=== PATIENT | male | born 1955 | race Caucasian/White ===

== ENCOUNTER 2020-05-23 14:22 | Emergency (ER) | payer MEDICARE, OTHER, SELFPAY ==
[2020-05-23 14:41] VITALS: BP 191/85; PULSE 80; RESP 16; TEMP 37.1; O2SAT 98; BMI 41.8
--- NOTE | 2020-05-23 15:18 | ED_ITS ---
HPI - Skin/Abscess/Foreign Bdy General Chief complaint: Skin/Abscess/Foreign Body Stated complaint: arm infection Time Seen by Provider: 05/23/20 14:53 Source: patient Mode of arrival: ambulatory Limitations: no limitations History of Present Illness HPI narrative: 64-year-old male with a past medical history of gout, hypertension here with left elbow redness, swelling and warmth. The patient tells me last he was clearing snow and felt some pain in his arm. That night he noticed the swelling and redness and warmth. Continued symptoms since. No fevers, chills, body aches. MD complaint: rash Onset (ago): day(s) Tetanus up to date: yes Location: LUE Severity: mild Quality: aching Pain Consistency: constant Relieving factors: none Exacerbating factors: none Context: none Associated symptoms: denies other symptoms Treatments prior to arrival: none Related Data Previous Rx's Medication Instructions Recorded cephalexin 500 mg PO TID #21 cap 05/23/20 doxycycline hyclate 100 mg PO BID #14 tab 05/23/20 oxycodone 5 mg PO Q6H PRN #10 tab 05/23/20 Allergies Allergy/AdvReac Type Severity Reaction Status Date / Time No Known Allergies Allergy Verified 05/23/20 14:41 [No Known Allergies*] Review of Systems Review of Systems: Yes all other systems are reviewed and are negative Constitutional: Constitutional: Reports no additional constitutional complaints, Denies body ache(s), Denies chills, Denies fever(s), Denies headache(s) and Denies weakness Eyes: Eyes: Reports no additional eye complaints and Denies change in vision ENT: Reports system reviewed and no additional complaints, except as documented, Denies dizziness, Denies headache(s), Denies nasal congestion, Denies nasal discharge and Denies neck pain Cardiovascular: Cardiovascular: Reports no additional cardiovascular complaints, Denies chest pain, Denies leg edema and Denies dyspnea Respiratory: Respiratory: Reports no additional respiratory complaints, Denies cough and Denies dyspnea Gastrointestinal: Gastrointestinal: Reports no additional gastrointestinal complaints, Denies abdominal pain, Denies diarrhea, Denies nausea and Denies vomiting Genitourinary: Genitourinary: Denies urinary incontinence Musculoskeletal: Musculoskeletal: Reports no additional musculoskeletal complaints, Denies back pain, Reports arthralgias, Denies joint swelling, Denies neck pain, Denies numbness and Denies tingling Integumentary/Breasts: Skin/Breast: Reports system reviewed and no additional complaints, except as docu, Reports swelling and Reports rash Neurologic: Reports system reviewed and no additional complaints, except as documented, Denies Abnormal speech present, Denies dizziness, Denies headache(s), Denies numbness, Denies tingling and Denies weakness PMF Past Medical History Attestation statement: The following information was validated with the patient. Source: old records reviewed and nursing notes reviewed Medical History Gout Hypertension Renal failure Syncopal episodes Social History Social History Alcohol intake: never Smoking Status: Never smoker Use of substances other than those prescribed or required for medical reasons: No Advance Directives: No Advance Directives Information Provided: Yes Physical Exam Vital Signs: Vital Signs: Last Vital Signs Temp 98.7 F 05/23/20 14:41 Pulse 80 05/23/20 14:41 Resp 16 05/23/20 14:41 BP 191/85 H 05/23/20 14:41 Pulse Ox 98 05/23/20 14:41 Body Mass Index 41.8 Const: General: cooperative, healthy appearing, comfortable and no acute distress Orientation/consciousness: patient oriented x3 Limitations: no limitations HENMT: Head: Yes normal to inspection Ears: hearing grossly normal bilaterally General nose exam: Normal external nose present Face and sinus: Yes normal facial exam Mouth: Normal oral and palatal mucosa present Throat: Yes posterior oropharynx normal Eyes: General: appearance normal, both eyes and all related structures Pupils: Equal, round and reactive pupils present Neck: Neck: Yes normal visual inspection Chest: Chest palpation & inspection: normal inspection of the chest Resp: Effort & Inspection: normal respiratory effort Auscultation: clear to auscultation bilaterally Cardio: Rate: regular rate Rhythm: regular rhythm Peripheral pulses: Peripheral pulses 2+ throughout GI: Inspection: Yes normal to inspection Palpation (GI): Soft to palpation and nontender Auscultation: normal bowel sounds Back/Spine/Pelvis: Thoracic/Lumbar Spine: thoracic and lumbar spine normal to inspection Skin: General skin exam: no rashes or lesions noted Neuro: General: patient oriented x3, no focal motor deficits and normal sensation to monofilament Cranial nerves: Yes Equal, round and reactive pupils present Cognition (Neuro): normal cognition Speech: No Abnormal speech present Gait exam (Neuro): Normal gait present Motor exam (neuro): 5/5 motor strength present throughout Extrem: Other: There is redness, warmth, swelling noted over the lateral el bow. There is no circumferential redness or warmth or swelling. The patient is able to flex and extend the elbow with no difficulty. He is neurovascularly intact distally. No palpable joint effusion General: Yes normal to inspection Course Course Course Narrative: Exam consistent with cellulitis in the left upper extremity. It is over the lateral elbow but the patient has no difficulty moving the joint so it is less likely a septic joint. He has no fever or tachycardia or signs and symptoms of systemic infection. The area was outlined. Will start patient on oral antibiotics. Will refer to Orthopedics for follow-up. Reviewed worrisome signs and symptoms and when to return to the emergency department. Comfortable discharge home. Discharge Plan Discharge Clinical Impression: Cellulitis Qualifiers: Site of cellulitis: extremity Site of cellulitis of extremity: upper extremity Laterality: left Qualified Code(s): L03.114 - Cellulitis of left upper limb Patient Disposition: Home, Self-Care Instructions: Cellulitis (ED) Additional Instructions: We marked the area with a skin marker and rest the site with Brendon wrap. Every day when you shower take off the Brendon bandage and look at the skin. If the redness is going outside the marked lines and crossing over the inside of your arm you need to return. If you have difficulty extending your arm as we discussed you need to return. Also return for fevers, chills or body aches Start your antibiotics as soon as possible Call Orthopedics for follow-up appointment. we are referring you because there may be pus inside the bursa of the elbow and once the swelling goes down they might aspirate this with a needle. Prescriptions: New cephalexin 500 mg capsule 500 mg PO TID Qty: 21 RF: 0 doxycycline hyclate 100 mg tablet 100 mg PO BID Qty: 14 RF: 0 oxycodone 5 mg tablet 5 mg PO Q6H PRN (Reason: pain) Qty: 10 RF: 0 Referrals: Brandon Burt MD [Physician] - 2 days Interventions: ED Discharge Assessment Last Done: 12/20/20 15:28 Discharge Date/Time: 05/23/20 15:34
== END 2020-05-23 15:34 | disposition home or self-care (01) ==
PROVIDERS: Emergency Provider Emergency Medicine
DX: L03.114 Cellulitis of left upper limb (principal); E11.22 Type 2 diabetes mellitus with diabetic chronic kidney disease; I12.9 Hypertensive chronic kidney disease with stage 1 through stage 4 chronic kidney disease, or unspecified chronic kidney disease; N18.4 Chronic kidney disease, stage 4 (severe)
CPT/HCPCS: 99283

== ENCOUNTER 2020-05-24 09:27 | Inpatient (IN) | payer MEDICARE, OTHER, SELFPAY ==
[2020-05-24] VITALS (8 sets, daily range): BP systolic 135–187; BP diastolic 71–94; PULSE 75–96; RESP 16–19; TEMP 36.5–37.4; O2SAT 93–96; BMI 40.4
--- NOTE | 2020-05-24 09:48 | ED_ITS ---
HPI - Skin/Abscess/Foreign Bdy General Chief complaint: Skin/Abscess/Foreign Body Stated complaint: cellulitis lt arm Time Seen by Provider: 05/24/20 09:47 Source: patient Mode of arrival: ambulatory Limitations: no limitations History of Present Illness HPI narrative: 64 y/o male presenting with worsening left arm cellulitis. He was seen here yesterday for the same. Area was marked and he was started on Doxycycline and Keflex. He reports compliance with the antibiotics and despite this he has had extension of the redness and swelling down to his hand. It is warm and red. There is a small new scab on his hand with some clear drainage. He denies fever or chills. He reports the pain with elbow movement is the same as yesterday. Related Data Home Medications Medication Instructions Recorded Confirmed amlodipine 5 mg PO DAILY 05/24/20 05/24/20 azelastine 1 spray INTRANASAL BID PRN 05/24/20 05/24/20 calcitriol 0.25 mcg PO 3XW 05/24/20 05/24/20 carvedilol 3.125 mg PO BID 05/24/20 05/24/20 pravastatin 80 mg PO DAILY 05/24/20 05/24/20 prednisone 1 tab PO DAILY PRN 05/24/20 05/24/20 sodium bicarbonate 1,950 mg PO BID 05/24/20 05/24/20 Previous Rx's Medication Instructions Recorded cephalexin 500 mg PO TID #21 cap 05/23/20 doxycycline hyclate 100 mg PO BID #14 tab 05/23/20 oxycodone 5 mg PO Q6H PRN #10 tab 05/23/20 Allergies Allergy/AdvReac Type Severity Reaction Status Date / Time No Known Allergies Allergy Verified 05/23/20 14:41 [No Known Allergies*] Review of Systems Review of Systems: Constitutional: No Fever, No Chills Cardiovascular: No Chest Pain, No SOB, No Orthopnea, No Edema Respiratory: No Cough, No Sputum, No Wheezing, No dyspnea Gastrointestinal: No Nausea, No Vomiting, No Diarrhea, No abdominal Pain Genitourinary: No Dysuria, No Urinary Frequency, No Hematuria Musculoskeletal: + joint pain, No Myalgias Skin: + Skin Lesions, No rash Neuro: No Weakness, No Numbness, No Dizziness, No Headache Psych: No Anxiety/Panic, No Depression Heme/Lymph: + Bruising, No Lymphadenopathy Endocrine: No Polyuria, No Polydipsia PMFSH Past Medical History Attestation statement: The following information was validated with the patient. Medical History Gout Hypertension Renal failure Syncopal episodes Social History Social History Alcohol intake: never Smoking Status: Never smoker Advance Directives: No Advance Directives Information Provided: No Physical Exam Vital Signs: Vital Signs: Last Vital Signs Temp 98.5 F 05/24/20 11:08 Pulse 78 05/24/20 11:08 Resp 17 05/24/20 11:08 BP 153/72 H 05/24/20 11:08 Pulse Ox 95 05/24/20 11:08 Body Mass Index 40.4 Appearance: Alert. Oriented X3. No acute distress. HEENT: normal inspection CVS: Normal heart rate and rhythm. Pulses normal. Respiratory: No respiratory distress. Skin: Skin warm and dry. Normal skin color. Normal skin turgor. No rashes. Extremities: left arm with swelling, redness and warmth from lateral elbow extending down dorsal forearm and hand - NV intact distally. Painful ROM of no difficulty moving elbow. Neuro: Oriented X 3. No motor deficit. No sensory deficit. Course Course Course Narrative: 64 y/o male with history of CKD, ?DM (was previously on meds but now is not with weight loss) who presents with worsening LE cellulitis despite oral antibiotics. Will check blood cultures, labs including lactic acid, ESR, CRP as well as doppler to r/o DVT. Broad spectrum vanco/zosyn ordered for now. No evidence of compartment syndrome. Afebrile and hemodynamically stable at this time. Reevaluation(s) Reevaluation #1: Lab workup shows WBC 18.7K with significantly elevated ESR and CRP. Lactic acid is normal. US UE pending. Given rapid progression of cellulitis despite oral antibiotics, will admit patient for IV antibiotics and close monitoring. Reevaluation #2: Labs show significant worsening of renal function. Denies oliguria. K+ 5.0. No need for [employer] at this time. Will get Renal U/S to r/o obstructive uropathy, start IVF and admit. Hospitalist accepts. MDM - Skin/Abscess/Foreign Bdy Lab Data Result diagrams: 05/24/20 10:12 05/24/20 10:12 Labs: Lab Results 05/24/20 05/24/20 05/24/20 Range/Units 10:11 10:11 10:11 WBC (4.8-10.8) X10*3/uL RBC (4.60-5.80) X10*6/uL Hgb (14.0-18.0) g/dl Hct (42-52) % MCV (80-98) fL MCH (27.0-33.0) pg MCHC (31.0-36.0) g/dl RDW (11.0-16.0) % Plt Count (160-400) X10*3/uL MPV (9.4-12.4) fL Immature Gran % (Auto) (0.0-0.4) % Neut % (Auto) (45-73) % Lymph % (Auto) (20-40) % [place] % (Auto) (2-11) % Eos % (Auto) (0-4) % Baso % (Auto) (0-2) % Lymph # (Auto) (1.2-4.9) X10*3/uL [place] # (Auto) (0.1-1.2) X10*3/uL Eos # (Auto) (0.0-0.4) X10*3/uL Baso # (Auto) (0.0-0.2) X10*3/uL Abs Immat Gran (auto) (0.00-0.03) X10*3/uL Absolute Neuts (auto) (2.0-8.3) X10*3/uL Absolute Nucleated RBC (0.0-0.012) X10*3/uL Nucleated RBC % (auto) (0.0-0.2) /100WBC Smear Tech's Comments ESR 88 H (0-15) MM/HR PT (10.8-13.0) SEC INR (0.9-1.1) APTT (24.1-38.0) SEC Sodium (135-145) mmol/L Potassium (3.3-5.1) mmol/l Chloride (96-108) mmol/L Carbon Dioxide (22-29) mmol/L Anion Gap (12-20) BUN (9-16) mg/dL Creatinine (0.5-1.4) mg/dL Estim Creat Clear Calc Estimated GFR Random Glucose (60-115) mg/dL Lactic Acid 0.6 (0.5-2.0) mmol/L Calcium (8.4-10.2) mg/dL Total Creatine Kinase (38-174) U/L C-Reactive Protein 27.73 H (< or = 0.50) mg/dL 05/24/20 05/24/20 05/24/20 Range/Units 10:12 10:12 10:12 WBC 18.7 H (4.8-10.8) X10*3/uL RBC 4.25 L (4.60-5.80) X10*6/uL Hgb 12.0 L (14.0-18.0) g/dl Hct 37.5 L (42-52) % MCV 88.2 (80-98) fL MCH 28.2 (27.0-33.0) pg MCHC 32.0 (31.0-36.0) g/dl RDW 13.4 (11.0-16.0) % Plt Count 239 (160-400) X10*3/uL MPV 10.2 (9.4-12.4) fL Immature Gran % (Auto) 1.2 H (0.0-0.4) % Neut % (Auto) 90.7 H (45-73) % Lymph % (Auto) 2.8 L (20-40) % [place] % (Auto) 5.0 (2-11) % Eos % (Auto) 0.2 (0-4) % Baso % (Auto) 0.1 (0-2) % Lymph # (Auto) 0.5 L (1.2-4.9) X10*3/uL [place] # (Auto) 0.9 (0.1-1.2) X10*3/uL Eos # (Auto) 0.0 (0.0-0.4) X10*3/uL Baso # (Auto) 0.0 (0.0-0.2) X10*3/uL Abs Immat Gran (auto) 0.23 H (0.00-0.03) X10*3/uL Absolute Neuts (auto) 17.0 H (2.0-8.3) X10*3/uL Absolute Nucleated RBC 0.000 (0.0-0.012) X10*3/uL Nucleated RBC % (auto) 0.0 (0.0-0.2) /100WBC Smear Tech's Comments VERIFIED ESR (0-15) MM/HR PT 12.9 (10.8-13.0) SEC INR 1.1 (0.9-1.1) APTT 27.9 (24.1-38.0) SEC Sodium 133 L (135-145) mmol/L Potassium 5.0 (3.3-5.1) mmol/l Chloride 100 (96-108) mmol/L Carbon Dioxide 19 L (22-29) mmol/L Anion Gap 19 (12-20) BUN 91 H* (9-16) mg/dL Creatinine 5.53 H* (0.5-1.4) mg/dL Estim Creat Clear Calc 18.6 Estimated GFR 10 Random Glucose 138 H (60-115) mg/dL Lactic Acid (0.5-2.0) mmol/L Calcium 7.7 L (8.4-10.2) mg/dL Total Creatine Kinase 81 (38-174) U/L C-Reactive Protein (< or = 0.50) mg/dL Discharge Plan Discharge Clinical Impression: Acute kidney injury superimposed on chronic kidney disease Cellulitis Qualifiers: Site of cellulitis: extremity Site of cellulitis of extremity: upper extremity Laterality: left Qualified Code(s): L03.114 - Cellulitis of left upper limb Patient Disposition: Admitted As Inpatient
--- NOTE | 2020-05-24 09:53 | US_ITS ---
EXAMINATION: US VENOUS ULTRASOUND WITH DOPPLER UPPER EXTREMITY, LEFT CLINICAL INFORMATION: Left upper extremity edema/swelling/pain. Redness. Assess for occult DVT. COMPARISON: None TECHNIQUE: Ultrasound of the upper extremity is performed using compression sonography and color and pulse Doppler flow with assessment of augmentation of flow. There is also imaging and Doppler assessment of the jugular and subclavian veins. Spectral analysis with color-flow imaging is performed. FINDINGS: Respiratory variation, normal compression, and augmented flow are noted throughout the upper extremity including the axillary, brachial, cubital, and radial and ulnar veins. There is normal flow in the internal jugular and subclavian veins. There is no visible deep or superficial thrombophlebitis. If the patient's symptoms process, a followup scan in 5 days 7 days might be of value to exclude proximal propagation from a nonvisualized vein distal arm. US/US venous duplex UE LT IMPRESSION: No DVT demonstrated in the left upper extremity.
[2020-05-24] MEDS: 0.9 % Sodium Chloride 1,000 ML 999 ML IVCONT ×2 (10:14→11:36)
[2020-05-24 10:24] LABS: Basophils Percent Auto 0.1 % (0-2); Eosinophils Percent Auto 0.2 % (0-4); Imm Gran Abs Auto 0.23 X10*3/uL (0.00-0.03); Imm Gran Pct Auto 1.2 % (0.0-0.4); Lymphocytes Absolute Auto 0.5 X10*3/uL (1.2-4.9); Lymphocytes Percent Auto 2.8 % (20-40); MANUAL DIFF FLAG SCAN; Mean Corpuscular Hemoglobin 28.2 pg (27.0-33.0); Mean Corpuscular Volume 88.2 fL (80-98); Mean Platelet Volume 10.2 fL (9.4-12.4); Monocytes Absolute Auto 0.9 X10*3/uL (0.1-1.2); Neutrophils Percent Auto 90.7 % (45-73); Platelet Count 239 X10*3/uL (160-400); Red Blood Count 4.25 X10*6/uL (4.60-5.80); Red Cell Distribution Width 13.4 % (11.0-16.0); SCAN SMEAR FLAG 1; White Blood Count 18.7 X10*3/uL (4.8-10.8)
[2020-05-24 10:28] LABS: INTERNATIONAL NORM RATIO 1.1 (0.9-1.1); Prothrombin Time 12.9 SEC (10.8-13.0)
[2020-05-24 10:31] LABS: Partial Thromboplastin Time 27.9 SEC (24.1-38.0)
[2020-05-24 10:32] LABS: Hematocrit 37.5 % (42-52)
[2020-05-24] MEDS: Piperacillin Sodium/Tazobactam 3.375 GM in 0.9 % Sodium Chloride 50 ML IV (10:39)
[2020-05-24 10:53] LABS: Lactic Acid 0.6 mmol/L (0.5-2.0)
[2020-05-24 10:55] LABS: C Reactive Protein 27.73 mg/dL (< or = 0.50)
[2020-05-24 11:01] LABS: SLIDE REVIEW VERIFIED
[2020-05-24 11:07] LABS: Erythrocyte Sedimentation Rate 88 MM/HR (0-15)
--- NOTE | 2020-05-24 11:14 | PC.NURSE ---
awaiting delivery from pharmacy for vancomycin.
[2020-05-24 11:17] LABS: Anion Gap 19 (12-20); Blood Urea Nitrogen 91 mg/dL (9-16); Calcium 7.7 mg/dL (8.4-10.2); Carbon Dioxide 19 mmol/L (22-29); Chloride 100 mmol/L (96-108); Creatinine Clr Calc Pharmacy 18.6; Estimated Glomerular Filt Rate 10; Glucose Random 138 mg/dL (60-115); Sodium 133 mmol/L (135-145)
[2020-05-24] MEDS: vancomycin HCL 1,000 MG, vancomycin HCL 750 MG in 0.9 % Sodium Chloride 500 ML 267.5 MG IV (11:42)
--- NOTE | 2020-05-24 12:14 | US_ITS ---
EXAMINATION: US RETROPERITONEAL LIMITED (RENAL ONLY) CLINICAL INFORMATION: Acute kidney injury. COMPARISON: August 29, 2007 TECHNIQUE: Renal ultrasound. FINDINGS: RIGHT KIDNEY: 11.5 x 6.0 x 6.4 cm (SAG x AP x TRV). The kidney is normal in size, contour, and echogenicity. Renal cortical thickness is normal. No calculi or focal parenchymal lesions. No hydronephrosis. LEFT KIDNEY: 11.0 x 5.0 x 7.1 cm (SAG x AP x TRV). The kidney is normal in size, contour, and echogenicity. Renal cortical thickness is normal. No calculi or focal parenchymal lesions. There is fullness of the renal pelvis without extension into the calyces without significant hydronephrosis appreciated. Cholelithiasis appreciated. US/US renal BI IMPRESSION: No significant renal abnormality appreciated.. Cholelithiasis.
--- NOTE | 2020-05-24 13:09 | P.HPHOSP_ITS ---
History of Present Illness Date of Service: 05/24/20 <Doreen Christopher NP - Last Filed: 05/24/20 14:22> Chief Complaint: Left arm pain <Doreen Christopher NP - Last Filed: 05/24/20 14:22> 64 year old man presenting with worsening left arm pain with swelling. He reported that on Sunday he hot his left hand and developed a small would close to the web of his hand. He stated that he had some clear drainage to the wound but no swelling or pain to his right arm. He then noted increased swelling and pain to the elbow and forearm area. He denied fever, chills, nausea or vomiting. He came to the ED yesterday and was sent home with Keflex, doxycycline and oxycodone. He returned due to worsening redness that seemed to be spreading down his hand and wrist. Doppler ultrasound of the left arm was negative. He was then noted to have an increased creatinine. On 10/2018 it was 2.66, today its 5.53. Renal ultrasound is pending. He received Vancomycin and zosyn. He will be admitted for further management of cellulitis/Bursitis. <Doreen Christopher NP - Last Filed: 05/24/20 14:22> Review of Systems Review of Systems: Denies any recent fever chills or decrease in appetite respiratory denies any shortness of breath coverage production cardiovascular is adjustment of any PND or edema gastrointestinal denies any dysphagia abdominal pain nausea vomiting or diarrhea genitourinary denies any dysuria frequency or hematuria musculoskeletal See HPI neuropsych denies any weakness or seizures all other systems reviewed are negative <Doreen Christopher NP - Last Filed: 05/24/20 14:22> [facility] Medical History: Medical History (Updated 05/24/20 @ 14:05 by Doreen Christopher NP) Aneurysm Diabetes mellitus Gout Hyperlipidemia Hypertension Renal failure Syncopal episodes <Doreen Christopher NP - Last Filed: 05/24/20 14:22> Pertinent family history: No cardiac disease <Doreen Christopher NP - Last Filed: 05/24/20 14:22> Surgical History: Surgical History (Updated 05/24/20 @ 14:05 by Doreen Christopher NP) S/P colonoscopic polypectomy <Doreen Christopher NP - Last Filed: 05/24/20 14:22> Social History: Social History Household Members: None Housing: House Do you presently have visiting nurse or other home services: No Alcohol intake: never Smoking Status: Never smoker Use of substances other than those prescribed or required for medical reasons: No Currently Displaying Signs/Symptoms of Drug Intoxication Withdrawal: No Have you been hit, kicked, punched, or otherwise hurt by someone within the past year? If so, by whom?: No Do you feel safe in your current relationship?: No Current Relationship Is there a partner from a previous relationship who is making you feel unsafe now?: No Are you made to feel afraid or neglected: No Advance Directives: No Advance Directives Information Provided: No Do you have thoughts of harming others: None Do you have a plan to hurt others: No Plan Recently lost weight without trying: No service: No Current occupational status: retired <Doreen Christopher NP - Last Filed: 05/24/20 14:22> Meds Allergies/Adverse reactions: Allergies Allergy/AdvReac Type Severity Reaction Status Date / Time No Known Allergies Allergy Verified 05/23/20 14:41 [No Known Allergies*] <Doreen Christopher NP - Last Filed: 05/24/20 14:22> Home medications: Home Medications Medication Instructions Recorded Confirmed Type amlodipine 5 mg PO DAILY 05/24/20 05/24/20 History azelastine 1 spray INTRANASAL BID PRN 05/24/20 05/24/20 History calcitriol 0.25 mcg PO 3XW 05/24/20 05/24/20 History carvedilol 3.125 mg PO BID 05/24/20 05/24/20 History pravastatin 80 mg PO DAILY 05/24/20 05/24/20 History prednisone 1 tab PO DAILY PRN 05/24/20 05/24/20 History sodium bicarbonate 1,950 mg PO BID 05/24/20 05/24/20 History <Doreen Christopher NP - Last Filed: 05/24/20 14:22> Physical Exam Vital Signs and Narrative: Vital Signs: Last Vital Signs Temp 98 F 05/24/20 12:29 Pulse 80 05/24/20 12:29 Resp 18 05/24/20 12:29 BP 154/71 H 05/24/20 12:29 Pulse Ox 94 05/24/20 12:29 Body Mass Index 40.4 <Doreen Christopher NP - Last Filed: 05/24/20 14:22> Appearing in no acute distress head is normocephalic atraumatic eyes pupils are PERRLA sclera is anicteric mouth throat mucous membranes are intact and moist neck is supple no lymphadenopathy, no JVD noted lung sounds are clear to auscultation heart regular rate rhythm, clear S1, S2 positive bowel sounds, abdomen is soft, nontender neuro patient is alert x3, no focal deficits Skin erythema, edema to elbow and forearm with no abscess or open wound noted. <Doreen Christopher NP - Last Filed: 05/24/20 14:22> Results Labs CBC and Chem 7: : 05/25/20 08:10 05/25/20 08:10 <Doreen Christopher NP - Last Filed: 05/24/20 14:22> Labs: Laboratory Results - last 24 hr 05/24/20 05/24/20 05/24/20 10:11 10:11 10:11 MCV MCH MCHC RDW Plt Count MPV Immature Gran % (Auto) Neut % (Auto) Lymph % (Auto) [place] % (Auto) Eos % (Auto) Baso % (Auto) Lymph # (Auto) [place] # (Auto) Eos # (Auto) Baso # (Auto) Abs Immat Gran (auto) Absolute Neuts (auto) Absolute Nucleated RBC Nucleated RBC % (auto) Smear Tech's Comments ESR 88 H PT INR APTT Anion Gap Estim Creat Clear Calc Estimated GFR Random Glucose Lactic Acid 0.6 Calcium Total Creatine Kinase C-Reactive Protein 27.73 H 05/24/20 05/24/20 05/24/20 10:12 10:12 10:12 MCV 88.2 MCH 28.2 MCHC 32.0 RDW 13.4 Plt Count 239 MPV 10.2 Immature Gran % (Auto) 1.2 H Neut % (Auto) 90.7 H Lymph % (Auto) 2.8 L [place] % (Auto) 5.0 Eos % (Auto) 0.2 Baso % (Auto) 0.1 Lymph # (Auto) 0.5 L [place] # (Auto) 0.9 Eos # (Auto) 0.0 Baso # (Auto) 0.0 Abs Immat Gran (auto) 0.23 H Absolute Neuts (auto) 17.0 H Absolute Nucleated RBC 0.000 Nucleated RBC % (auto) 0.0 Smear Tech's Comments VERIFIED ESR PT 12.9 INR 1.1 APTT 27.9 Anion Gap 19 Estim Creat Clear Calc 18.6 Estimated GFR 10 Random Glucose 138 H Lactic Acid Calcium 7.7 L Total Creatine Kinase 81 C-Reactive Protein <Doreen Christopher NP - Last Filed: 05/24/20 14:22> Imaging Radiologist's Impressions: Impressions Venous Duplex 05/24/20 09:53 IMPRESSION: No DVT demonstrated in the left upper extremity. <Doreen Christopher NP - Last Filed: 05/24/20 14:22> Assessment and Plan (1) Cellulitis: Qualifiers: Laterality: left Site of cellulitis: extremity Site of cellulitis of extremity: upper extremity Qualified Code(s): L03.114 - Cellulitis of left upper limb <Doreen Christopher NP - Last Filed: 05/24/20 14:22> Status: Acute <Doreen Christopher NP - Last Filed: 05/24/20 14:22> 64 year old man admitted with left arm swelling. Appears to be cellulitis vs bursitis. Cellulitis/bursitis. Vancomycin and Zosyn. Will monitor for worsening, if so consider Orthos consult, pain management KEVIN on CKD. Worsening renal function, no labs in over a year. Renal ultrasound pending, consult to nephrology. Hypertension. Stable. Continue home medications. DVT prophylaxis with heparin Discussed with Dr. Voss Full code <Doreen Christopher NP - Last Filed: 05/24/20 14:22>
[2020-05-24 13:27] LABS: Glucose Urine UA 250 MG/DL (NEG); Leukocyte Esterase Urine NEG (NEG); Nitrite Urine NEG (NEG); Specific Gravity - Urine 1.025 (1.005-1.025); Urine Blood 1+ (NEG); Urine Ketones NEG (NEG); Urine Protein 3+ MG/DL (NEG-TRACE)
[2020-05-24 13:38] LABS: Appearance Urine HAZY; Color Urine YELLOW
--- NOTE | 2020-05-24 13:49 | PM.EVENT ---
Event Note Date of Service: 05/24/20 Event Note: Patient seen and examined independently and was present during islas portion of E/M service. Agree with midlevel's history, physical, assessment, and plan. 64M presented with left foreaarm swelling and erythema cellultiis vanco, renal dose CKD vs maryan on ckd renal eval
[2020-05-24 13:51] LABS: Squamous Epithelial Cell Urine TRACE /LPF
[2020-05-24 13:52] LABS: Amorphous Sediment Urine 1+ /LPF; Bacteria Urine TRACE /LPF
[2020-05-24 14:20] LABS: COVID-19 Test Negative (Negative); IDNOW Serial# 9DD0AD1C
--- NOTE | 2020-05-24 14:50 | PC.NURSE ---
JOSH TEXT SENT TO HOSPITALIST REQUESTING PAIN MEDICATION FOR LEFT ARM. PAIN 12/11.
[2020-05-24] MEDS: oxyCODONE HCl Immed Release 5 MG TABLET PO (15:10)
--- NOTE | 2020-05-24 15:42 | PC.NURSE ---
CALLED [facility] [place] FOR [place].
--- NOTE | 2020-05-24 16:10 | PC.NURSE ---
REPORT GIVEN TO [facility] RN.
[2020-05-24 17:10] LABS: Glucose, Whole Blood 94 mg/dL (60-115)
[2020-05-24] MEDS: HYDROmorphone HCl 2 MG TABLET 1 MG PO (17:31)
[2020-05-24] MEDS: 0.9 % Sodium Chloride Flush 3 ML SYRINGE IVFLUSH ×2 (17:32→21:00)
[2020-05-24 17:53] LABS: Estimated Average Glucose 146 mg/dL; Hemoglobin A1c % 6.7 %
[2020-05-24] MEDS: Piperacillin Sodium/Tazobactam 2.25 GM in 0.9 % Sodium Chloride 50 ML IV (18:00)
[2020-05-24 19:32] LABS: Glucose, Whole Blood 154 mg/dL (60-115)
[2020-05-24] MEDS: Sodium Bicarbonate 650 MG TABLET 1950 MG PO (21:00)
[2020-05-24] MEDS: carvediloL 3.125 MG TABLET PO (21:00)
[2020-05-24] MEDS: Pravastatin Sodium 80 MG TABLET PO (21:00)
[2020-05-25] MEDS: Piperacillin Sodium/Tazobactam 2.25 GM in 0.9 % Sodium Chloride 50 ML IV (01:45)
[2020-05-25 04:00] VITALS: BP 147/77; PULSE 84; RESP 20; TEMP 36.7; O2SAT 94
[2020-05-25 07:37] VITALS: BP 139/74; PULSE 91; RESP 18; TEMP 37.3; O2SAT 93
[2020-05-25 08:09] LABS: Glucose, Whole Blood 110 mg/dL (60-115)
[2020-05-25 08:38] LABS: Basophils Percent Auto 0.1 % (0-2); Eosinophils Percent Auto 0.2 % (0-4); Hematocrit 35.9 % (42-52); Hemoglobin 11.7 g/dl (14.0-18.0); Imm Gran Abs Auto 0.21 X10*3/uL (0.00-0.03); Imm Gran Pct Auto 1.1 % (0.0-0.4); Lymphocytes Absolute Auto 0.5 X10*3/uL (1.2-4.9); Lymphocytes Percent Auto 2.8 % (20-40); MANUAL DIFF FLAG SCAN; Mean Corpuscular HGB Conc 32.6 g/dl (31.0-36.0); Mean Corpuscular Hemoglobin 28.7 pg (27.0-33.0); Mean Platelet Volume 10.5 fL (9.4-12.4); Monocytes Absolute Auto 0.9 X10*3/uL (0.1-1.2); Monocytes Percent Auto 4.9 % (2-11); Neutrophils Percent Auto 90.9 % (45-73); Platelet Count 229 X10*3/uL (160-400); Red Blood Count 4.08 X10*6/uL (4.60-5.80); Red Cell Distribution Width 13.4 % (11.0-16.0); SCAN SMEAR FLAG 1; White Blood Count 18.7 X10*3/uL (4.8-10.8)
[2020-05-25] MEDS: Sodium Bicarbonate 650 MG TABLET 1950 MG PO ×2 (08:39→20:27)
[2020-05-25] MEDS: carvediloL 3.125 MG TABLET PO ×2 (08:40→20:27)
[2020-05-25] MEDS: amLODIPine Besylate 5 MG TABLET PO (08:40)
[2020-05-25] MEDS: 0.9 % Sodium Chloride Flush 3 ML SYRINGE IVFLUSH ×2 (08:41→15:58)
[2020-05-25 09:01] LABS: SLIDE REVIEW VERIFIED
[2020-05-25 09:21] LABS: Anion Gap 16 (12-20); Blood Urea Nitrogen 79 mg/dL (9-16); Carbon Dioxide 19 mmol/L (22-29); Chloride 105 mmol/L (96-108); Glucose Random 107 mg/dL (60-115); Potassium 4.4 mmol/l (3.3-5.1); Sodium 136 mmol/L (135-145)
[2020-05-25 09:24] LABS: Creatinine Clr Calc Pharmacy 19.1; Estimated Glomerular Filt Rate 11
[2020-05-25 09:41] LABS: Calcium 7.2 mg/dL (8.4-10.2)
[2020-05-25 09:57] LABS: Vancomycin Trough 9.3 mcg/mL (10.0-20.0)
--- NOTE | 2020-05-25 10:06 | MHC.CM.PN ---
MALE 64 DX CELLULITIS He lives alone. He is independent with all functional mobility and drives. Offered HCP documentation assistance. The patient is interested. He needs to think about who he will name, as his HCP. DP home no services, Pt will arrange for transportation. CM will follow.
[2020-05-25 10:42] LABS: Vancomycin Random 8.6 mcg/mL (15-20)
[2020-05-25 11:08] VITALS: BP 148/75; PULSE 75; RESP 20; TEMP 36.8; O2SAT 94
[2020-05-25 11:18] LABS: Glucose, Whole Blood 219 mg/dL (60-115)
--- NOTE | 2020-05-25 12:13 | HO.PM.IMPN ---
Subjective Subjective Date of Service: 05/25/20 Interval History: improved Cardiovascular Cardiovascular: Reports no additional cardiovascular complaints Respiratory Respiratory: Reports no additional respiratory complaints Physical Exam Vital Signs: Vital Signs: Last Vital Signs Temp 98.3 F 05/25/20 11:08 Pulse 75 05/25/20 11:08 Resp 20 05/25/20 11:08 BP 148/75 H 05/25/20 11:08 Pulse Ox 94 05/25/20 11:08 Body Mass Index 40.4 General: AO X 3, no acute distress Resp: CTA bilateral CVS: S1,S2,RRR GI: soft, non tender, non distended Neuro: motor grossly intact Psych: appropriate affect Objective Data Current Medications Generic Name Dose Route Start Last Admin Trade Name Freq PRN Reason Stop Dose Admin Acetaminophen 650 mg 05/24/20 16:39 Acetaminophen 325 Mg Tablet PO Q6H PRN Pain, Mild (Pain Scale 1-3) Amlodipine Besylate 5 mg 05/25/20 09:00 05/25/20 08:40 Amlodipine Besylate 5 Mg Tablet PO 5 mg DAILY [facility] Administration Protocol Calcitriol 0.25 mcg 05/26/20 10:00 Calcitriol 0.25 Mcg Capsule PO [id number] LEONARDO Carvedilol 3.125 mg 05/24/20 21:00 05/25/20 08:40 Carvedilol 3.125 Mg Tablet PO 3.125 mg BID [facility] Administration Protocol Vancomycin HCl 1,000 mg/ 270 mls @ 270 mls/hr 05/26/20 11:00 Sodium Chloride IV Q48H [facility] Insulin Human Lispro 0 unit 05/24/20 16:39 05/25/20 08:40 Insulin Lispro 100 Unit/Ml 3 Ml Vial SUBCUT Not Given QIDACHS [facility] Protocol Ondansetron HCl 4 mg 05/24/20 16:39 Ondansetron Hcl 4 Mg/2 Ml Vial IVPUSH Q8H PRN Nausea and Vomiting Oxycodone HCl 5 mg 05/24/20 17:13 Oxycodone Hcl Immed Release 5 Mg Tablet PO Q4H PRN pain Pharmacy Consult 1 each 05/24/20 09:53 Consult Rx Vancomycin Dosing MISCELLANE DAILY PRN Consult order Pharmacy Consult 1 each 05/24/20 11:32 Consult Rx Perform Med Rec MISCELLANE ONCE PRN Consult order Pharmacy Consult 1 each 05/24/20 16:39 Consult Rx Vancomycin Dosing MISCELLANE DAILY PRN Consult order Pravastatin Sodium 80 mg 05/24/20 21:00 05/24/20 21:00 Pravastatin Sodium 80 Mg Tablet PO 80 mg BEDTIME [facility] Administration Sodium Bicarbonate 1,950 mg 05/24/20 21:00 05/25/20 08:39 Sodium Bicarbonate 650 Mg Tablet PO 1,950 mg BID [facility] Administration Sodium Chloride 3 ml 05/24/20 16:39 05/25/20 08:41 0.9 % Sodium Chloride Flush 3 Ml Syringe IVFLUSH 3 ml QSHIFT [facility]ONARDO Administration Labs CBC & Chem 7: 05/25/20 08:10 05/25/20 08:10 Assessment and Plan (1) Cellulitis: Status: Acute Assessment and Plan: 64 year old man admitted with left arm swelling. Appears to be cellulitis vs bursitis. Cellulitis/bursitis. Appears to be improving, continue vancomycin KEVIN on CKD V cr was 3.9 05/05/2020 Hypertension Coreg, amlodipine
[2020-05-25] MEDS: oxyCODONE HCl Immed Release 5 MG TABLET PO ×2 (12:29→20:30)
--- NOTE | 2020-05-25 12:50 | P.CDIC_ITS ---
CDI Concurrent Query Service Date: 05/25/20 Documentation Clarification: Please clarify if you are treating a proba ble/suspected/likely or confirmed: Cellulitis Left Upper Extremity due to Diabetes Mellitus Cellulitis Left Upper Extremity not due to Diabetes Mellitus PLEASE DO NOT DELETE/MODIFY EXISTING CONTENT Additional information is needed in order to code to the highest accuracy and appropriate Severity of Illness (SOI). Please clarify the information noted below in your progress notes and discharge summary. Risk Factors/Clinical Indicators/Treatments 64 year old male admitted for pain, swelling left upper extremity. Seen in ED day prior and oral antibiotic prescribed PMH: Diabetes Mellitus, Hypertension, Renal Failure, Syncope Per ED Impression: Cellulitis Left Upper Extremity Per H&P: Acute Cellulitis Left Upper Extremity vs Bursitis CDS: Valerie Aleman RN Contact Number: [phone] Please Review the information above and exercise your independent professional judgment in responding to the query. If you concur, pleas document in the PROGRESS NOTES and DISCHARGE SUMMARY. If you do not agree with the query, please document in the query above. THIS QUERY IS PART OF THE PERMANENT MEDICAL RECORD
[2020-05-25 14:31] VITALS: BMI 40.4
[2020-05-25 15:22] VITALS: BP 143/74; PULSE 91; RESP 18; TEMP 36.8; O2SAT 94
--- NOTE | 2020-05-25 15:23 | P.PNNP_ITS ---
Subjective Subjective Date of Service: 05/25/20 Interval history: Patient seen and examined consult dictated Physical Exam Vital Signs: Vital Signs: Last Vital Signs Temp 98.3 F 05/25/20 11:08 Pulse 75 05/25/20 11:08 Resp 20 05/25/20 11:08 BP 148/75 H 05/25/20 11:08 Pulse Ox 94 05/25/20 11:08 Body Mass Index 40.4 Objective Data Labs CBC & Chem 7: 05/25/20 08:10 05/25/20 08:10 Labs: Laboratory Results - last 24 hr 05/24/20 05/24/20 05/24/20 10:12 17:06 19:24 WBC RBC Hgb Hct MCV MCH MCHC RDW Plt Count MPV Immature Gran % (Auto) Neut % (Auto) Lymph % (Auto) [place] % (Auto) Eos % (Auto) Baso % (Auto) Lymph # (Auto) [place] # (Auto) Eos # (Auto) Baso # (Auto) Abs Immat Gran (auto) Absolute Neuts (auto) Absolute Nucleated RBC Nucleated RBC % (auto) Smear Tech's Comments Sodium Potassium Chloride Carbon Dioxide Anion Gap BUN Creatinine Estim Creat Clear Calc Estimated GFR POC Glucose 94 154 H Random Glucose Estimat Average Glucose 146 Hemoglobin A1c % 6.7 Calcium Vancomycin Trough Random Vancomycin 05/25/20 05/25/20 05/25/20 07:41 08:10 08:10 WBC 18.7 H RBC 4.08 L Hgb 11.7 L Hct 35.9 L MCV 88.0 MCH 28.7 MCHC 32.6 RDW 13.4 Plt Count 229 MPV 10.5 Immature Gran % (Auto) 1.1 H Neut % (Auto) 90.9 H Lymph % (Auto) 2.8 L [place] % (Auto) 4.9 Eos % (Auto) 0.2 Baso % (Auto) 0.1 Lymph # (Auto) 0.5 L [place] # (Auto) 0.9 Eos # (Auto) 0.0 Baso # (Auto) 0.0 Abs Immat Gran (auto) 0.21 H Absolute Neuts (auto) 17.0 H Absolute Nucleated RBC 0.000 Nucleated RBC % (auto) 0.0 Smear Tech's Comments VERIFIED Sodium 136 Potassium 4.4 Chloride 105 Carbon Dioxide 19 L Anion Gap 16 BUN 79 H Creatinine 5.39 H* Estim Creat Clear Calc 19.1 Estimated GFR 11 POC Glucose 110 Random Glucose 107 Estimat Average Glucose Hemoglobin A1c % Calcium 7.2 L D Vancomycin Trough Random Vancomycin 05/25/20 05/25/20 05/25/20 08:10 09:53 11:07 WBC RBC Hgb Hct MCV MCH MCHC RDW Plt Count MPV Immature Gran % (Auto) Neut % (Auto) Lymph % (Auto) [place] % (Auto) Eos % (Auto) Baso % (Auto) Lymph # (Auto) [place] # (Auto) Eos # (Auto) Baso # (Auto) Abs Immat Gran (auto) Absolute Neuts (auto) Absolute Nucleated RBC Nucleated RBC % (auto) Smear Tech's Comments Sodium Potassium Chloride Carbon Dioxide Anion Gap BUN Creatinine Estim Creat Clear Calc Estimated GFR POC Glucose 219 H Random Glucose Estimat Average Glucose Hemoglobin A1c % Calcium Vancomycin Trough 9.3 L Random Vancomycin 8.6 L Microbiology Microbiology Results: Microbiology 05/24/20 10:33 Blood - Venous Blood Culture - Preliminary No growth after 24 hours. 05/24/20 10:11 Blood - Venous Blood Culture - Preliminary No growth after 24 hours. Assessment & Plan Assessment and plan (1) KEVIN (acute kidney injury): Status: Acute (2) Metabolic acidosis: Status: Acute (3) CKD (chronic kidney disease) stage 4, GFR 15-29 ml/min: Status: Acute Assessment and Plan: KEVIN superimposed on advanced CKD unclear etiology ? emmett infectious nephritis cannot exclude progressive hypertensive and diabetic kidney disease patient refused kidney biopsy previously followed by Dr Green known severe CKD serum creatinine ~ 3 mg/dl recently REC complement level serum immunofixation consider kidney biopsy if patient agreeable sodium bicarbonate follow kidney functiton and electrolytes Thank you Time Spent With Patient Time: Total time spent is greater than 50% in coordination of care (as docum ented) at patient's floor/unit and/or counseling patient:
[2020-05-25] MEDS: vancomycin HCL 750 MG in 0.9 % Sodium Chloride 250 ML 265 MG IV (16:12)
[2020-05-25 16:30] LABS: Glucose, Whole Blood 177 mg/dL (60-115)
[2020-05-25 19:00] VITALS: BP 165/80; PULSE 90; RESP 18; TEMP 37.2; O2SAT 95
[2020-05-25 20:20] LABS: Glucose, Whole Blood 146 mg/dL (60-115)
[2020-05-25 20:27] VITALS: BP 158/78; PULSE 90
[2020-05-25] MEDS: Pravastatin Sodium 80 MG TABLET PO (20:27)
[2020-05-26] VITALS (7 sets, daily range): BP systolic 134–173; BP diastolic 75–86; PULSE 83–90; RESP 18–20; TEMP 35.9–37.3; O2SAT 93–96
--- NOTE | 2020-05-26 | CT_ITS ---
EXAMINATION: CT ELBOW WITHOUT CONTRAST, LEFT CLINICAL INFORMATION: Cellulitis. Evaluate for abscess. COMPARISON: None TECHNIQUE: Axial images through the left elbow without IV contrast. Sagittal and coronal reconstructions on the technologist's workstation were performed. Exam is limited due to patient positioning. FINDINGS: Bone alignment is normal. No fracture or dislocation is seen. There are small osteophytes at the coronoid process and olecranon. There is no elbow joint effusion. There is no evidence of osteomyelitis. There is diffuse skin thickening and stranding of the fat of the dorsal surface of the forearm extending to the posterior elbow and upper arm. No abscess is seen. CT/CT elbow LT wo con IMPRESSION: Forearm and elbow cellulitis. No abscess. Mild degenerative changes at the elbow joint.
[2020-05-26] MEDS: 0.9 % Sodium Chloride Flush 3 ML SYRINGE IVFLUSH ×4 (00:30→21:36)
[2020-05-26] MEDS: oxyCODONE HCl Immed Release 5 MG TABLET PO ×2 (03:36→12:39)
[2020-05-26 06:51] LABS: Basophils Percent Auto 0.2 % (0-2); Eosinophils Absolute Auto 0.1 X10*3/uL (0.0-0.4); Eosinophils Percent Auto 0.4 % (0-4); Hematocrit 33.5 % (42-52); Hemoglobin 10.8 g/dl (14.0-18.0); Imm Gran Abs Auto 0.15 X10*3/uL (0.00-0.03); Imm Gran Pct Auto 0.9 % (0.0-0.4); Lymphocytes Absolute Auto 0.6 X10*3/uL (1.2-4.9); Lymphocytes Percent Auto 3.6 % (20-40); MANUAL DIFF FLAG SCAN; Mean Corpuscular HGB Conc 32.2 g/dl (31.0-36.0); Mean Corpuscular Hemoglobin 28.3 pg (27.0-33.0); Mean Corpuscular Volume 87.9 fL (80-98); Mean Platelet Volume 10.8 fL (9.4-12.4); Monocytes Percent Auto 5.8 % (2-11); Neutrophils Absolute Auto 15.2 X10*3/uL (2.0-8.3); Neutrophils Percent Auto 89.1 % (45-73); Platelet Count 222 X10*3/uL (160-400); Red Blood Count 3.81 X10*6/uL (4.60-5.80); Red Cell Distribution Width 13.2 % (11.0-16.0); SCAN SMEAR FLAG 1
[2020-05-26 07:35] LABS: Glucose, Whole Blood 125 mg/dL (60-115)
[2020-05-26 07:41] LABS: Anion Gap 17 (12-20); Blood Urea Nitrogen 79 mg/dL (9-16); Carbon Dioxide 18 mmol/L (22-29); Chloride 102 mmol/L (96-108); Creatinine Clr Calc Pharmacy 18.9; Estimated Glomerular Filt Rate 11; Glucose Fasting 120 mg/dL (60-99); Potassium 4.2 mmol/l (3.3-5.1); SLIDE REVIEW VERIFIED; Sodium 133 mmol/L (135-145)
[2020-05-26] MEDS: Sodium Bicarbonate 650 MG TABLET 1950 MG PO ×2 (09:18→21:36)
[2020-05-26] MEDS: carvediloL 3.125 MG TABLET PO ×2 (09:18→21:36)
[2020-05-26] MEDS: amLODIPine Besylate 5 MG TABLET PO (09:18)
--- NOTE | 2020-05-26 11:05 | P.PNIM_ITS ---
Subjective Subjective Date of Service: 05/26/20 Interval History: minimal improvemnt Cardiovascular Cardiovascular: Reports no additional cardiovascular complaints Respiratory Respiratory: Reports no additional respiratory complaints Physical Exam Vital Signs: Vital Signs: Last Vital Signs Temp 97.8 F 05/26/20 07:13 Pulse 90 05/26/20 07:13 Resp 18 05/26/20 07:13 BP 158/86 H 05/26/20 07:13 Pulse Ox 94 05/26/20 07:13 Body Mass Index 40.4 General: AO X 3, no acute distress Resp: CTA bilateral CVS: S1,S2,RRR GI: soft, non tender, non distended Neuro: motor grossly intact Psych: appropriate affect some improvement, but still fairly swollen and red Objective Data Current Medications Generic Name Dose Route Start Last Admin Trade Name Freq PRN Reason Stop Dose Admin Acetaminophen 650 mg 05/24/20 16:39 Acetaminophen 325 Mg Tablet PO Q6H PRN Pain, Mild (Pain Scale 1-3) Amlodipine Besylate 5 mg 05/25/20 09:00 05/26/20 09:18 Amlodipine Besylate 5 Mg Tablet PO 5 mg DAILY [facility] Administration Protocol Calcitriol 0.25 mcg 05/26/20 10:00 Calcitriol 0.25 Mcg Capsule PO [id number]@1000 LEONARDO Carvedilol 3.125 mg 05/24/20 21:00 05/26/20 09:18 Carvedilol 3.125 Mg Tablet PO 3.125 mg BID [facility] Administration Protocol Vancomycin HCl 750 mg/ Sodium 265 mls @ 265 mls/hr 05/25/20 17:00 05/25/20 17:24 Chloride IV Infused Q48H [facility] Infusion Insulin Human Lispro 0 unit 05/24/20 16:39 05/26/20 09:18 Insulin Lispro 100 Unit/Ml 3 Ml Vial SUBCUT Not Given QIDACHS [facility] Protocol Ondansetron HCl 4 mg 05/24/20 16:39 Ondansetron Hcl 4 Mg/2 Ml Vial IVPUSH Q8H PRN Nausea and Vomiting Oxycodone HCl 5 mg 05/24/20 17:13 05/26/20 03:36 Oxycodone Hcl Immed Release 5 Mg Tablet PO 5 mg Q4H PRN Administration pain Pharmacy Consult 1 each 05/24/20 09:53 Consult Rx Vancomycin Dosing MISCELLANE DAILY PRN Consult order Pharmacy Consult 1 each 05/24/20 11:32 Consult Rx Perform Med Rec MISCELLANE ONCE PRN Consult order Pharmacy Consult 1 each 05/24/20 16:39 Consult Rx Vancomycin Dosing MISCELLANE DAILY PRN Consult order Pravastatin Sodium 80 mg 05/24/20 21:00 05/25/20 20:27 Pravastatin Sodium 80 Mg Tablet PO 80 mg BEDTIME [facility]ARDO Administration Sodium Bicarbonate 1,950 mg 05/24/20 21:00 05/26/20 09:18 Sodium Bicarbonate 650 Mg Tablet PO 1,950 mg BID [facility] Administration Sodium Chloride 3 ml 05/24/20 16:39 05/26/20 09:17 0.9 % Sodium Chloride Flush 3 Ml Syringe IVFLUSH 3 ml QSHIFT LEONARDO Administration Labs CBC & Chem 7: 05/26/20 05:54 05/26/20 05:54 Microbiology Microbiology Results: Microbiology 05/24/20 10:33 Blood - Venous Blood Culture - Preliminary No growth after 24 hours. 05/24/20 10:11 Blood - Venous Blood Culture - Preliminary No growth after 24 hours. Assessment and Plan (1) Cellulitis: Status: Acute Assessment and Plan: 64 year old man admitted with left arm swelling. Appears to be cellulitis vs bursitis. Cellulitis/bursitis. slowly improving, but will get CT to look for underlying drainable abscess, continue vanc KEVIN on CKD V cr was 3.9 05/05/2020 renal appreciated follow up GN work up, ?biopsy Hypertension Coreg, amlodipine
[2020-05-26 11:30] LABS: Glucose, Whole Blood 231 mg/dL (60-115)
--- NOTE | 2020-05-26 12:02 | P.PNNP_ITS ---
Subjective Subjective Date of Service: 05/26/20 Interval history: seen and examined no complaints Physical Exam Vital Signs: Vital Signs: Last Vital Signs Temp 96.7 F L 05/26/20 11:21 Pulse 84 05/26/20 11:21 Resp 18 05/26/20 11:21 BP 134/76 05/26/20 11:21 Pulse Ox 96 05/26/20 11:21 Body Mass Index 40.4 Const: General: no acute distress HENMT: Head: Yes normocephalic and Yes atraumatic Resp: Auscultation: diminished lung sounds Cardio: Heart sounds: S1 normal heart sound present and S2 normal heart sound present GI: Palpation (GI): Soft to palpation and nontender Extrem: General: Yes pedal edema Objective Data Labs CBC & Chem 7: 05/26/20 05:54 05/26/20 05:54 Labs: Laboratory Results - last 24 hr 05/25/20 05/25/20 05/26/20 16:27 20:12 05:54 WBC 17.0 H RBC 3.81 L Hgb 10.8 L Hct 33.5 L MCV 87.9 MCH 28.3 MCHC 32.2 RDW 13.2 Plt Count 222 MPV 10.8 Immature Gran % (Auto) 0.9 H Neut % (Auto) 89.1 H Lymph % (Auto) 3.6 L [place] % (Auto) 5.8 Eos % (Auto) 0.4 Baso % (Auto) 0.2 Lymph # (Auto) 0.6 L [place] # (Auto) 1.0 Eos # (Auto) 0.1 Baso # (Auto) 0.0 Abs Immat Gran (auto) 0.15 H Absolute Neuts (auto) 15.2 H Absolute Nucleated RBC 0.000 Nucleated RBC % (auto) 0.0 Smear Tech's Comments VERIFIED Sodium Potassium Chloride Carbon Dioxide Anion Gap BUN Creatinine Estim Creat Clear Calc Estimated GFR POC Glucose 177 H 146 H Fasting Glucose Calcium 05/26/20 05/26/20 05/26/20 05:54 07:21 11:19 WBC RBC Hgb Hct MCV MCH MCHC RDW Plt Count MPV Immature Gran % (Auto) Neut % (Auto) Lymph % (Auto) [place] % (Auto) Eos % (Auto) Baso % (Auto) Lymph # (Auto) [place] # (Auto) Eos # (Auto) Baso # (Auto) Abs Immat Gran (auto) Absolute Neuts (auto) Absolute Nucleated RBC Nucleated RBC % (auto) Smear Tech's Comments Sodium 133 L Potassium 4.2 Chloride 102 Carbon Dioxide 18 L Anion Gap 17 BUN 79 H Creatinine 5.44 H* Estim Creat Clear Calc 18.9 Estimated GFR 11 POC Glucose 125 H 231 H Fasting Glucose 120 H Calcium 7.0 L Microbiology Microbiology Results: Microbiology 05/24/20 10:33 Blood - Venous Blood Culture - Preliminary No growth after 24 hours. 05/24/20 10:11 Blood - Venous Blood Culture - Preliminary No growth after 24 hours. Assessment & Plan Assessment and plan (1) KEVIN (acute kidney injury): Status: Acute (2) Metabolic acidosis: Status: Acute (3) CKD (chronic kidney disease) stage 4, GFR 15-29 ml/min: Status: Acute Assessment and Plan: stable kidney function complement level and serum immunofixation pending KEVIN superimposed on advanced CKD unclear etiology ? emmett infectious nephritis cannot exclude progressive hypertensive and diabetic kidney disease patient refused kidney biopsy previously followed by Dr Green known severe CKD serum creatinine ~ 3 mg/dl recently REC consider kidney biopsy if patient agreeable follow random vancomycin level dose medication for eGFR < 15 ml/min sodium bicarbonate protect non dominant arm no indication for dialysis follow kidney function and electrolytes Time Spent With Patient Time: Total time spent is greater than 50% in coordination of care (as documented) at patient's floor/unit and/or counseling patient:
[2020-05-26] MEDS: calcitrioL 0.25 MCG CAPSULE PO (12:39)
--- NOTE | 2020-05-26 13:42 | MHC.CM.PN ---
Patient is on IV Vanco for cellulitis to left arm/elbow. CT scan reveals no abscess. Discharge plan is home no services. Patient will set up transport. CM will continue to follow patient for discharge needs.
[2020-05-26 16:30] LABS: Glucose, Whole Blood 130 mg/dL (60-115)
[2020-05-26 18:12] LABS: Complement C3 123 mg/dL (82-185)
[2020-05-26 20:40] LABS: Glucose, Whole Blood 147 mg/dL (60-115)
[2020-05-26] MEDS: Pravastatin Sodium 80 MG TABLET PO (21:36)
[2020-05-27 03:44] VITALS: BP 136/69; PULSE 85; RESP 19; TEMP 36.6; O2SAT 95
[2020-05-27 06:50] LABS: Basophils Percent Auto 0.1 % (0-2); Eosinophils Absolute Auto 0.1 X10*3/uL (0.0-0.4); Eosinophils Percent Auto 0.7 % (0-4); Hematocrit 31.1 % (42-52); Hemoglobin 10.1 g/dl (14.0-18.0); Imm Gran Abs Auto 0.21 X10*3/uL (0.00-0.03); Imm Gran Pct Auto 1.4 % (0.0-0.4); Lymphocytes Absolute Auto 0.7 X10*3/uL (1.2-4.9); Lymphocytes Percent Auto 4.5 % (20-40); MANUAL DIFF FLAG SCAN; Mean Corpuscular HGB Conc 32.5 g/dl (31.0-36.0); Mean Corpuscular Hemoglobin 28.5 pg (27.0-33.0); Mean Corpuscular Volume 87.6 fL (80-98); Mean Platelet Volume 10.4 fL (9.4-12.4); Monocytes Absolute Auto 1.1 X10*3/uL (0.1-1.2); Monocytes Percent Auto 7.7 % (2-11); Neutrophils Absolute Auto 12.6 X10*3/uL (2.0-8.3); Neutrophils Percent Auto 85.6 % (45-73); Platelet Count 215 X10*3/uL (160-400); Red Blood Count 3.55 X10*6/uL (4.60-5.80); Red Cell Distribution Width 13.1 % (11.0-16.0); SCAN SMEAR FLAG 1; White Blood Count 14.8 X10*3/uL (4.8-10.8)
[2020-05-27 07:19] VITALS: BP 141/79; PULSE 80; RESP 17; TEMP 36.7; O2SAT 94
[2020-05-27 07:34] LABS: Anion Gap 17 (12-20); Blood Urea Nitrogen 77 mg/dL (9-16); Calcium 6.8 mg/dL (8.4-10.2); Carbon Dioxide 18 mmol/L (22-29); Chloride 101 mmol/L (96-108); Creatinine Clr Calc Pharmacy 17.3; Estimated Glomerular Filt Rate 10; Glucose Fasting 110 mg/dL (60-99); Potassium 4.1 mmol/l (3.3-5.1); Sodium 132 mmol/L (135-145)
[2020-05-27 08:15] LABS: Glucose, Whole Blood 146 mg/dL (60-115)
[2020-05-27 08:16] LABS: SLIDE REVIEW VERIFIED
[2020-05-27] MEDS: Sodium Bicarbonate 650 MG TABLET 1950 MG PO ×2 (08:52→20:17)
[2020-05-27] MEDS: oxyCODONE HCl Immed Release 5 MG TABLET PO ×2 (08:52→17:13)
[2020-05-27] MEDS: 0.9 % Sodium Chloride Flush 3 ML SYRINGE IVFLUSH ×2 (08:53→15:43)
[2020-05-27] MEDS: carvediloL 3.125 MG TABLET PO ×2 (08:53→20:17)
[2020-05-27] MEDS: amLODIPine Besylate 5 MG TABLET PO (08:53)
--- NOTE | 2020-05-27 10:53 | HO.PM.IMPN ---
Subjective Subjective Date of Service: 05/27/20 Interval History: a little better Cardiovascular Cardiovascular: Reports no additional cardiovascular complaints Gastrointestinal Gastrointestinal: Reports no additional gastrointestinal complaints Physical Exam Vital Signs: Vital Signs: Last Vital Signs Temp 98.1 F 05/27/20 07:19 Pulse 80 05/27/20 07:19 Resp 17 05/27/20 07:19 BP 141/79 H 05/27/20 07:19 Pulse Ox 94 05/27/20 07:19 Body Mass Index 40.4 General: AO X 3, no acute distress Resp: CTA bilateral CVS: S1,S2,RRR GI: soft, non tender, non distended Neuro: motor grossly intact Psych: appropriate affect still swollen left arm, but better, motor ok, sensory ok Objective Data Current Medications Generic Name Dose Route Start Last Admin Trade Name Freq PRN Reason Stop Dose Admin Acetaminophen 650 mg 05/24/20 16:39 Acetaminophen 325 Mg Tablet PO Q6H PRN Pain, Mild (Pain Scale 1-3) Amlodipine Besylate 5 mg 05/25/20 09:00 05/27/20 08:53 Amlodipine Besylate 5 Mg Tablet PO 5 mg DAILY [facility] Administration Protocol Calcitriol 0.25 mcg 05/26/20 10:00 05/26/20 12:39 Calcitriol 0.25 Mcg Capsule PO 0.25 mcg [id number]@1000 LEONARDO Administration Carvedilol 3.125 mg 05/24/20 21:00 05/27/20 08:53 Carvedilol 3.125 Mg Tablet PO 3.125 mg BID [facility] Administration Protocol Vancomycin HCl 750 mg/ Sodium 265 mls @ 265 mls/hr 05/25/20 17:00 05/25/20 17:24 Chloride IV Infused Q48H [facility] Infusion Insulin Human Lispro 0 unit 05/24/20 16:39 05/27/20 08:53 Insulin Lispro 100 Unit/Ml 3 Ml Vial SUBCUT Not Given QIDACHS [facility] Protocol Ondansetron HCl 4 mg 05/24/20 16:39 Ondansetron Hcl 4 Mg/2 Ml Vial IVPUSH Q8H PRN Nausea and Vomiting Oxycodone HCl 5 mg 05/24/20 17:13 05/27/20 08:52 Oxycodone Hcl Immed Release 5 Mg Tablet PO 5 mg Q4H PRN Administration pain Pharmacy Consult 1 each 05/24/20 09:53 Consult Rx Vancomycin Dosing MISCELLANE DAILY PRN Consult order Pharmacy Consult 1 each 05/24/20 11:32 Consult Rx Perform Med Rec MISCELLANE ONCE PRN Consult order Pharmacy Consult 1 each 05/24/20 16:39 Consult Rx Vancomycin Dosing MISCELLANE DAILY PRN Consult order Pravastatin Sodium 80 mg 05/24/20 21:00 05/26/20 21:36 Pravastatin Sodium 80 Mg Tablet PO 80 mg BEDTIME [facility]ARDO Administration Sodium Bicarbonate 1,950 mg 05/24/20 21:00 05/27/20 08:52 Sodium Bicarbonate 650 Mg Tablet PO 1,950 mg BID [facility] Administration Sodium Chloride 3 ml 05/24/20 16:39 05/27/20 08:53 0.9 % Sodium Chloride Flush 3 Ml Syringe IVFLUSH 3 ml QSHIFT LEONARDO Administration Labs CBC & Chem 7: 05/27/20 05:48 05/27/20 05:48 Microbiology Microbiology Results: Microbiology 05/24/20 10:33 Blood - Venous Blood Culture - Preliminary No growth after 48 hours. 05/24/20 10:11 Blood - Venous Blood Culture - Preliminary No growth after 48 hours. Assessment and Plan (1) Cellulitis: Status: Acute Assessment and Plan: 64 year old man admitted with left arm swelling. Appears to be cellulitis vs bursitis. Cellulitis/bursitis. slowly improving, ct without abscess continue vanc iv KEVIN on CKD V cr was 3.9 05/05/2020 renal appreciated follow up GN work up, ?biopsy Hypertension Coreg, amlodipine
[2020-05-27 11:32] LABS: Glucose, Whole Blood 180 mg/dL (60-115)
[2020-05-27 12:00] VITALS: BP 171/92; PULSE 78; RESP 18; TEMP 35.9; O2SAT 98
[2020-05-27] MEDS: Heparin Sodium,Porcine 5,000 UNIT/ML VIAL 5000 UNIT SUBCUT ×2 (13:27→20:17)
[2020-05-27 13:42] LABS: IgA 257 mg/dL (70-320); IgG 278 mg/dL (600-1540); IgM 52 mg/dL (50-300)
--- NOTE | 2020-05-27 14:09 | PM.PNNEP ---
Subjective Subjective Date of Service: 05/27/20 Interval history: seen and examined no complaints Physical Exam Vital Signs: Vital Signs: Last Vital Signs Temp 96.6 F L 05/27/20 12:00 Pulse 78 05/27/20 12:00 Resp 18 05/27/20 12:00 BP 171/92 H 05/27/20 12:00 Pulse Ox 98 05/27/20 12:00 Body Mass Index 40.4 Const: General: no acute distress HENMT: Head: Yes normocephalic and Yes atraumatic Neck: Neck: Yes supple Resp: Auscultation: clear to auscultation bilaterally GI: Palpation (GI): Soft to palpation and nontender Extrem: General: Yes edema Objective Data Labs CBC & Chem 7: 05/27/20 05:48 05/27/20 05:48 Labs: Laboratory Results - last 24 hr 05/25/20 05/25/20 05/26/20 15:48 15:48 16:19 WBC RBC Hgb Hct MCV MCH MCHC RDW Plt Count MPV Immature Gran % (Auto) Neut % (Auto) Lymph % (Auto) [place] % (Auto) Eos % (Auto) Baso % (Auto) Lymph # (Auto) [place] # (Auto) Eos # (Auto) Baso # (Auto) Abs Immat Gran (auto) Absolute Neuts (auto) Absolute Nucleated RBC Nucleated RBC % (auto) Smear Tech's Comments Sodium Potassium Chloride Carbon Dioxide Anion Gap BUN Creatinine Estim Creat Clear Calc Estimated GFR POC Glucose 130 H Fasting Glucose Calcium IgG Total 278 L IgA Total 257 IgM 52 PAOLA Interpretation Complement C3 123 Complement C4 50 05/26/20 05/27/20 05/27/20 20:35 05:48 05:48 WBC 14.8 H RBC 3.55 L Hgb 10.1 L Hct 31.1 L MCV 87.6 MCH 28.5 MCHC 32.5 RDW 13.1 Plt Count 215 MPV 10.4 Immature Gran % (Auto) 1.4 H Neut % (Auto) 85.6 H Lymph % (Auto) 4.5 L [place] % (Auto) 7.7 Eos % (Auto) 0.7 Baso % (Auto) 0.1 Lymph # (Auto) 0.7 L [place] # (Auto) 1.1 Eos # (Auto) 0.1 Baso # (Auto) 0.0 Abs Immat Gran (auto) 0.21 H Absolute Neuts (auto) 12.6 H Absolute Nucleated RBC 0.000 Nucleated RBC % (auto) 0.0 Smear Tech's Comments VERIFIED Sodium 132 L Potassium 4.1 Chloride 101 Carbon Dioxide 18 L Anion Gap 17 BUN 77 H Creatinine 5.95 H* Estim Creat Clear Calc 17.3 Estimated GFR 10 POC Glucose 147 H Fasting Glucose 110 H Calcium 6.8 L IgG Total IgA Total IgM PAOLA Interpretation Complement C3 Complement C4 05/27/20 05/27/20 08:07 11:28 WBC RBC Hgb Hct MCV MCH MCHC RDW Plt Count MPV Immature Gran % (Auto) Neut % (Auto) Lymph % (Auto) [place] % (Auto) Eos % (Auto) Baso % (Auto) Lymph # (Auto) [place] # (Auto) Eos # (Auto) Baso # (Auto) Abs Immat Gran (auto) Absolute Neuts (auto) Absolute Nucleated RBC Nucleated RBC % (auto) Smear Tech's Comments Sodium Potassium Chloride Carbon Dioxide Anion Gap BUN Creatinine Estim Creat Clear Calc Estimated GFR POC Glucose 146 H 180 H Fasting Glucose Calcium IgG Total IgA Total IgM PAOLA Interpretation Complement C3 Complement C4 Microbiology Microbiology Results: Microbiology 05/24/20 10:33 Blood - Venous Blood Culture - Preliminary No growth after 48 hours. 05/24/20 10:11 Blood - Venous Blood Culture - Preliminary No growth after 48 hours. Assessment & Plan Assessment and plan (1) KEVIN (acute kidney injury): Status: Acute (2) Metabolic acidosis: Status: Acute (3) CKD (chronic kidney disease) stage 4, GFR 15-29 ml/min: Status: Acute Assessment and Plan: overall stable kidney function complement level and serum immunofixation normal KEVIN superimposed on advanced CKD unclear etiology ? emmett infectious nephritis cannot exclude progressive hypertensive and diabetic kidney disease patient refused kidney biopsy previously followed by Dr Green known severe CKD serum creatinine ~ 3 mg/dl recently REC consider kidney biopsy if patient agreeable follow random vancomycin level dose medication for eGFR < 15 ml/min sodium bicarbonate protect non dominant arm no indication for dialysis follow kidney function and electrolytes Time Spent With Patient Time: Total time spent is greater than 50% in coordination of care (as documented) at patient's floor/unit and/or counseling patient:
[2020-05-27 16:00] VITALS: BP 167/87; PULSE 78; RESP 20; TEMP 35.7; O2SAT 97
[2020-05-27 17:02] LABS: Glucose, Whole Blood 151 mg/dL (60-115)
[2020-05-27 17:03] LABS: Vancomycin Random 8.9 mcg/mL (15-20)
[2020-05-27] MEDS: vancomycin HCL 750 MG in 0.9 % Sodium Chloride 250 ML 265 MG IV (17:12)
[2020-05-27 20:00] VITALS: BP 146/75; PULSE 78; RESP 20; TEMP 36.9; O2SAT 96
[2020-05-27 20:17] VITALS: BP 146/75; PULSE 78
[2020-05-27] MEDS: Pravastatin Sodium 80 MG TABLET PO (20:17)
[2020-05-27 21:20] LABS: Glucose, Whole Blood 148 mg/dL (60-115)
[2020-05-28] VITALS: BP 161/85; PULSE 84; RESP 16; TEMP 37.1; O2SAT 95
[2020-05-28] MEDS: oxyCODONE HCl Immed Release 5 MG TABLET PO ×2 (00:07→08:01)
[2020-05-28] MEDS: 0.9 % Sodium Chloride Flush 3 ML SYRINGE IVFLUSH ×2 (00:07→08:02)
[2020-05-28 03:33] VITALS: BP 187/83; PULSE 82; RESP 16; TEMP 36.6; O2SAT 96
[2020-05-28 04:24] VITALS: BP 170/78; PULSE 84
[2020-05-28 06:31] LABS: MANUAL DIFF FLAG NO
[2020-05-28 06:55] LABS: Basophils Percent Auto 0.3 % (0-2); Eosinophils Absolute Auto 0.2 X10*3/uL (0.0-0.4); Eosinophils Percent Auto 1.5 % (0-4); Hematocrit 32.3 % (42-52); Hemoglobin 10.4 g/dl (14.0-18.0); Imm Gran Abs Auto 0.26 X10*3/uL (0.00-0.03); Imm Gran Pct Auto 2.2 % (0.0-0.4); Lymphocytes Absolute Auto 0.8 X10*3/uL (1.2-4.9); Lymphocytes Percent Auto 6.4 % (20-40); Mean Corpuscular HGB Conc 32.2 g/dl (31.0-36.0); Mean Corpuscular Hemoglobin 28.2 pg (27.0-33.0); Mean Corpuscular Volume 87.5 fL (80-98); Mean Platelet Volume 10.8 fL (9.4-12.4); Monocytes Percent Auto 8.6 % (2-11); Neutrophils Absolute Auto 9.4 X10*3/uL (2.0-8.3); Platelet Count 222 X10*3/uL (160-400); Red Blood Count 3.69 X10*6/uL (4.60-5.80); Red Cell Distribution Width 12.9 % (11.0-16.0); White Blood Count 11.6 X10*3/uL (4.8-10.8)
[2020-05-28 07:33] LABS: Glucose, Whole Blood 128 mg/dL (60-115)
[2020-05-28 07:46] VITALS: BP 161/74; PULSE 86; RESP 18; TEMP 37; O2SAT 100
[2020-05-28 07:52] LABS: Anion Gap 16 (12-20); Blood Urea Nitrogen 80 mg/dL (9-16); Calcium 6.8 mg/dL (8.4-10.2); Carbon Dioxide 19 mmol/L (22-29); Chloride 100 mmol/L (96-108); Estimated Glomerular Filt Rate 9; Glucose Fasting 119 mg/dL (60-99); Potassium 4.4 mmol/l (3.3-5.1); Sodium 131 mmol/L (135-145)
[2020-05-28] MEDS: Sodium Bicarbonate 650 MG TABLET 1950 MG PO (08:01)
[2020-05-28] MEDS: carvediloL 3.125 MG TABLET PO (08:02)
[2020-05-28] MEDS: amLODIPine Besylate 5 MG TABLET PO (08:02)
--- NOTE | 2020-05-28 09:40 | P.DS_ITS ---
DS: Providers Provider Date of admission: 05/24/20 13:08 Primary care physician: Sameer English MD Consults: 05/24/20 16:39 Consult to Nephrology Routine Consulting Provider: Fransico Green Reason for consultation: WORSENING RENAL FUNCTION Has provider been notified: No DS: Diagnosis Discharge Diagnosis (1) KEVIN (acute kidney injury): Status: Acute (2) Metabolic acidosis: Status: Acute (3) CKD (chronic kidney disease) stage 4, GFR 15-29 ml/min: Status: Acute DS: Medications Discharge Medications Home Medications: Home Medications Medication Instructions Recorded Confirmed amlodipine 5 mg PO DAILY 05/24/20 05/24/20 azelastine 1 spray INTRANASAL BID PRN 05/24/20 05/24/20 calcitriol 0.25 mcg PO 3XW 05/24/20 05/24/20 carvedilol 3.125 mg PO BID 05/24/20 05/24/20 pravastatin 80 mg PO DAILY 05/24/20 05/24/20 prednisone 1 tab PO DAILY PRN 05/24/20 05/24/20 sodium bicarbonate 1,950 mg PO BID 05/24/20 05/24/20 Previous Rx's Medication Instructions Recorded cephalexin 500 mg PO TID #21 cap 05/23/20 doxycycline hyclate 100 mg PO BID #14 tab 05/23/20 oxycodone 5 mg PO Q6H PRN #10 tab 05/23/20 DS: Summary Hospital Course Hospital Course: Patient was admitted for left arm cellulitis. He was given IV vancomycin, swelling and erythema and pain improved. He will be discharged home on 6 more days of oral Keflex and doxycycline. Patient was also noted to have progression of his chronic kidney disease, he did not need any emergent dialysis, but he is approaching the need. He will follow up closely with Nephrology. Time Spent with Patient Time attestation: Total time spent providing and/or coordinating discharge services: Physical Exam Vital Signs: Vital Signs: Last Vital Signs Temp 98.6 F 05/28/20 07:46 Pulse 86 05/28/20 07:46 Resp 18 05/28/20 07:46 BP 161/74 H 05/28/20 07:46 Pulse Ox 100 05/28/20 07:46 Body Mass Index 40.4 General: AO X 3, no acute distress Resp: CTA bilateral CVS: S1,S2,RRR GI: soft, non tender, non distended Neuro: motor grossly intact Psych: appropriate affect skinL still swollen lue, but less erythema, less tenderness, less edema DS: Data Data Completed and Pending Labs on day of discharge: 05/24/20 09:53 Piperacillin Sodium/Tazobactam [Zosyn] 3.375 gm 0.9 % Sodium Chloride [Ns] 50 ml IV ONCE US venous duplex UE LT Stat 05/24/20 10:00 0.9 % Sodium Chloride [Ns] 1,000 ml IVCONT 999 mls/hr vancomycin HCL 1,000 mg vancomycin HCL 750 mg 0.9 % Sodium Chloride [Ns] 500 ml IV ONCE 05/24/20 10:11 C Reactive Protein Stat Erythrocyte Sedimentation Rate Stat Lactic Acid Stat 05/24/20 10:12 Basic Metabolic Panel Stat Complete Blood Count Auto Diff Stat Creatine Kinase Total Stat Hemoglobin A1c Stat Partial Thromboplastin Time Stat Prothrombin Time INR Stat SLIDE REVIEW Stat 05/24/20 10:36 Piperacillin Sodium/Tazobactam [Zosyn] 3.375 gm IV .STK-MED ONE 05/24/20 11:45 0.9 % Sodium Chloride [Ns] 1,000 ml IVCONT 999 mls/hr 05/24/20 12:14 US renal BI Stat 05/24/20 13:00 Transfer Order Routine 05/24/20 13:47 COVID-19 ID NOW ([place]) Stat 05/24/20 15:01 oxyCODONE HCl Immed Release [Roxicodone] 5 mg PO ONCE ONE 05/24/20 16:39 oxyCODONE HCl Immed Release [Roxicodone] 5 mg PO Q6H PRN 05/24/20 16:39 Cont. Telemetry w/Vital Sign limit Q4HR 05/24/20 17:06 Glucose, Whole Blood Routine 05/24/20 17:13 HYDROmorphone HCl [Dilaudid] 1 mg PO ONCE ONE 05/24/20 17:39 Add Laboratory Test Stat 05/24/20 17:55 Piperacillin Sodium/Tazobactam [Zosyn] 2.25 gm IV .STK-MED ONE 05/24/20 18:00 Piperacillin Sodium/Tazobactam [Zosyn] 2.25 gm 0.9 % Sodium Chloride [Ns] 50 ml IV Q8H 05/24/20 19:24 Glucose, Whole Blood Routine 05/25/20 01:41 Piperacillin Sodium/Tazobactam [Zosyn] 2.25 gm IV .STK-MED ONE 05/25/20 07:41 Glucose, Whole Blood Routine 05/25/20 08:10 Basic Metabolic Panel DAILY@0600 Complete Blood Count Auto Diff DAILY@0600 SLIDE REVIEW Routine Vancomycin Trough Routine 05/25/20 09:53 Vancomycin Random Routine 05/25/20 11:07 Glucose, Whole Blood Routine 05/25/20 15:48 Complement C3 Routine Complement C4 Routine Immunofixation Pnl, Serum Routine 05/25/20 16:06 vancomycin HCL 750 mg IV .STK-MED ONE 05/25/20 16:27 Glucose, Whole Blood Routine 05/25/20 20:12 Glucose, Whole Blood Routine 05/26/20 CT elbow LT wo con Routine 05/26/20 05:54 BMP [Basic Metabolic Panel Fasting] Routine Complete Blood Count Auto Diff Routine SLIDE REVIEW Routine 05/26/20 07:21 Glucose, Whole Blood Routine 05/26/20 11:00 vancomycin HCL 1,000 mg 0.9 % Sodium Chloride [Ns] 250 ml IV Q48H 05/26/20 11:19 Glucose, Whole Blood Routine 05/26/20 16:19 Glucose, Whole Blood Routine 05/26/20 20:35 Glucose, Whole Blood Routine 05/27/20 05:48 BMP [Basic Metabolic Panel Fasting] Routine Complete Blood Count Auto Diff Routine SLIDE REVIEW Routine 05/27/20 08:07 Glucose, Whole Blood Routine 05/27/20 11:28 Glucose, Whole Blood Routine 05/27/20 16:13 Vancomycin Random Routine 05/27/20 16:55 Glucose, Whole Blood Routine 05/27/20 17:08 vancomycin HCL 750 mg IV .STK-MED ONE 05/27/20 21:16 Glucose, Whole Blood Routine 05/28/20 05:35 BMP [Basic Metabolic Panel Fasting] Routine Complete Blood Count Auto Diff Routine 05/28/20 07:28 Glucose, Whole Blood Routine Laboratory Last Values WBC 11.6 X10*3/uL (4.8-10.8) H 05/28/20 05:35 RBC 3.69 X10*6/uL (4.60-5.80) L 05/28/20 05:35 Hgb 10.4 g/dl (14.0-18.0) L 05/28/20 05:35 Hct 32.3 % (42-52) L 05/28/20 05:35 MCV 87.5 fL (80-98) 05/28/20 05:35 MCH 28.2 pg (27.0-33.0) 05/28/20 05:35 MCHC 32.2 g/dl (31.0-36.0) 05/28/20 05:35 RDW 12.9 % (11.0-16.0) 05/28/20 05:35 Plt Count 222 X10*3/uL (160-400) 05/28/20 05:35 MPV 10.8 fL (9.4-12.4) 05/28/20 05:35 Immature Gran % (Auto) 2.2 % (0.0-0.4) H 05/28/20 05:35 Neut % (Auto) 81.0 % (45-73) H 05/28/20 05:35 Lymph % (Auto) 6.4 % (20-40) L 05/28/20 05:35 Atkinson % (Auto) 8.6 % (2-11) 05/28/20 05:35 Eos % (Auto) 1.5 % (0-4) 05/28/20 05:35 Baso % (Auto) 0.3 % (0-2) 05/28/20 05:35 Lymph # (Auto) 0.8 X10*3/uL (1.2-4.9) L 05/28/20 05:35 Atkinson # (Auto) 1.0 X10*3/uL (0.1-1.2) 05/28/20 05:35 Eos # (Auto) 0.2 X10*3/uL (0.0-0.4) 05/28/20 05:35 Baso # (Auto) 0.0 X10*3/uL (0.0-0.2) 05/28/20 05:35 Abs Immat Gran (auto) 0.26 X10*3/uL (0.00-0.03) H 05/28/20 05:35 Absolute Neuts (auto) 9.4 X10*3/uL (2.0-8.3) H 05/28/20 05:35 Absolute Nucleated RBC 0.000 X10*3/uL (0.0-0.012) 05/28/20 05:35 Nucleated RBC % (auto) 0.0 /100WBC (0.0-0.2) 05/28/20 05:35 Smear Tech's Comments VERIFIED 05/27/20 05:48 ESR 88 MM/HR (0-15) H 05/24/20 10:11 PT 12.9 SEC (10.8-13.0) 05/24/20 10:12 INR 1.1 (0.9-1.1) 05/24/20 10:12 APTT 27.9 SEC (24.1-38.0) 05/24/20 10:12 Sodium 131 mmol/L (135-145) L 05/28/20 05:35 Potassium 4.4 mmol/l (3.3-5.1) 05/28/20 05:35 Chloride 100 mmol/L (96-108) 05/28/20 05:35 Carbon Dioxide 19 mmol/L (22-29) L 05/28/20 05:35 Anion Gap 16 (-20) 05/28/20 05:35 BUN 80 mg/dL (9-16) H* 05/28/20 05:35 Creatinine 6.06 mg/dL (0.5-1.4) H* 05/28/20 05:35 Estim Creat Clear Calc 17.0 05/28/20 05:35 Estimated GFR 9 05/28/20 05:35 POC Glucose 128 mg/dL (60-115) H 05/28/20 07:28 Random Glucose 107 mg/dL (60-115) 05/25/20 08:10 Fasting Glucose 119 mg/dL (60-99) H 05/28/20 05:35 Estimat Average Glucose 146 mg/dL 05/24/20 10:12 Hemoglobin A1c % 6.7 % 05/24/20 10:12 Lactic Acid 0.6 mmol/L (0.5-2.0) 05/24/20 10:11 Calcium 6.8 mg/dL (8.4-10.2) L 05/28/20 05:35 Total Creatine Kinase 81 U/L (38-174) 05/24/20 10:12 C-Reactive Protein 27.73 mg/dL (< or = 0.50) H 05/24/20 10:11 Urine Color YELLOW 05/24/20 13:16 Urine Appearance HAZY 05/24/20 13:16 Urine pH 6.0 (5.0-8.0) 05/24/20 13:16 Ur Specific [place] 1.025 (1.005-1.025) 05/24/20 13:16 Urine Protein 3+ MG/DL (NEG-TRACE) H 05/24/20 13:16 Urine Glucose (UA) 250 MG/DL (NEG) H 05/24/20 13:16 Urine Ketones NEG MG/DL (NEG) 05/24/20 13:16 Urine Blood 1+ (NEG) H 05/24/20 13:16 Urine Nitrite NEG (NEG) 05/24/20 13:16 Ur Leukocyte Esterase NEG (NEG) 05/24/20 13:16 Urine RBC 1-4 /HPF (0) 05/24/20 13:16 Urine WBC 1-4 /HPF (0-4) 05/24/20 13:16 Ur Squamous Epith Cells TRACE /LPF 05/24/20 13:16 Amorphous Sediment 1+ /LPF 05/24/20 13:16 Urine Bacteria TRACE /LPF 05/24/20 13:16 Vancomycin Trough 9.3 mcg/mL (10.0-20.0) L 05/25/20 08:10 Random Vancomycin 8.9 mcg/mL (15-20) L 05/27/20 16:13 IgG Total 278 mg/dL (600-1540) L 05/25/20 15:48 IgA Total 257 mg/dL (70-320) 05/25/20 15:48 IgM 52 mg/dL (50-300) 05/25/20 15:48 APOLA Interpretation 05/25/20 15:48 Complement C3 123 mg/dL (82-185) 05/25/20 15:48 Complement C4 50 mg/dL (15-53) 05/25/20 15:48 COVID-19 (DEE DEE) Negative (Negative) 05/24/20 13:47 COVID-19 Clin Com See Note 05/24/20 13:47 Preliminary micro results at discharge 05/24/20 10:33 Blood Culture - Preliminary Blood - Venous No growth after 48 hours. 05/24/20 10:11 Blood Culture - Preliminary Blood - Venous No growth after 48 hours. Discharge Plan Discharge Patient Disposition: Home, Self-Care Referrals: Sameer English MD [Primary Care Provider] - Discharge Medications: Continued cephalexin 500 mg capsule 500 mg PO TID Qty: 21 RF: 0 doxycycline hyclate 100 mg tablet 100 mg PO BID Qty: 14 RF: 0 oxycodone 5 mg tablet 5 mg PO Q6H PRN (Reason: pain) Qty: 10 RF: 0 prednisone 20 mg tablet 1 tab PO DAILY PRN (Reason: Inflammation) RF: 0 amlodipine 5 mg tablet 5 mg PO DAILY RF: 0 carvedilol 3.125 mg tablet 3.125 mg PO BID RF: 0 pravastatin 80 mg tablet 80 mg PO DAILY RF: 0 sodium bicarbonate 650 mg tablet 1,950 mg PO BID RF: 0 calcitriol 0.25 mcg capsule 0.25 mcg PO 3XW RF: 0 azelastine 0.15 % (205.5 mcg) spray,non-aerosol 1 spray intranasal BID PRN (Reason: allergies) RF: 0 Discharge Orders: Discharge Order (Routine); Ordered 05/28/20 Ordered By: Bernard Voss Activity on Discharge: As tolerated Visit Report Forms: Patient Portal Discharge page Care Plan Goals: recovery Health Concerns: left arm cellulitis, advanced kidney disease Plan of Treatment: finish off antibiotics and follow up with pcp to make sure it resolves, return for any worsening symptoms or fever, follow up closely with kidney doctor
--- NOTE | 2020-05-28 10:09 | MHC.CM.PN ---
Pt discharging home today with no services
--- NOTE | 2020-06-18 10:46 | CONS_ITS ---
DATE OF SERVICE: 05/25/2020 HISTORY OF PRESENT ILLNESS: This is a 64-year-old patient with history of advanced chronic kidney disease followed by Dr. Green with a baseline serum creatinine in the range of 3 to 3.5 mg/dL who presented to the hospital with left arm pain and swelling and currently with worsening kidney function. The patient denies any fever or chills. There is no report of nausea, vomiting, chest pain or shortness of breath. He had recently been seen by Dr. Green in the outpatient renal office and had a discussion about possibility of dialysis in the future. Review of his other son does not show any hypotensive event and the patient had a renal ultrasound that was essentially negative for obstruction. PAST MEDICAL HISTORY: Remarkable for chronic kidney disease stage 4, diabetes mellitus, hypertension, dyslipidemia, gout, history of aneurysm. MEDICATIONS: As an outpatient reviewed and include sodium bicarbonate, prednisone, pravastatin, carvedilol, calcitriol, amlodipine. ALLERGIES: HE IS NOT ALLERGIC TO MEDICATIONS. SOCIAL HISTORY: Does not smoke. FAMILY HISTORY: Negative for kidney disease. REVIEW OF SYSTEMS: Ten-point review of system negative except pertinent in history of present illness. PHYSICAL EXAMINATION: VITAL SIGNS: Blood pressure 148/75, heart rate is 75, respiratory rate 20, temperature 98.3. CONSTITUTIONAL: Looks his stated age. No acute distress. NEUROLOGIC: Alert, awake. HEENT: Head, atraumatic and normocephalic. Eyes, pupils are equal and reactive to light. Anicteric sclerae. NECK: Supple. LUNGS: Good air entry bilaterally. CARDIOVASCULAR: S1, S2. No rub. ABDOMEN: Soft, nontender. EXTREMITIES: With no peripheral edema. LABORATORY DATA: Showed a white count 18.7, hemoglobin 11.7, platelet count 229. Sodium 136, potassium 4.4, chloride 105, CO2 19, BUN 79, creatinine 5.39. Urine with 3+ protein. IMPRESSION: 1. Acute kidney injury. 2. Metabolic acidosis. 3. Chronic kidney disease, stage 4. This is a patient who presented with acute kidney injury in the setting of cellulitis and underlying advanced chronic kidney disease. The patient had a discussion with his outpatient ticket sorter about possible kidney biopsy, but had turned down the possibility. It is unclear whether the patient has had worsening kidney function in the course of the last few months due to an underlying known diabetic glomerular injury. Can also exclude the possibility of progression of underlying diabetic and hypertensive nephrosclerosis. My recommendation would be to, 1. Complement level. 2. Serum protein electrophoresis. 3. Consider kidney biopsy. 4. Will protect nondominant arm. 5. Follow random vancomycin level. 6. No need for IV fluids. 7. Follow kidney function and electrolytes. Thank you for allowing me to participate in the care of this patient. Rule out monoclonal gammopathy. Follow his random vancomycin level, protect his nondominant arm and follow closely his kidney function, electrolytes. I will discuss with him again the possibility of kidney biopsy as it might be helpful to DICTATION ENDS HERE Katherine Vila MD GF/MODL / [id number]
== END 2020-05-28 10:55 | disposition home or self-care (01) | DRG 420 ==
LOC: HO.ED 11:12 → HO.IMC 15:30
PROVIDERS: Internal Medicine Nephrology; Nurse Practitioner Acute Care; Physician Assistant; Admitting Provider Internal Medicine; Emergency Provider Emergency Medicine; PCP Family Medicine; Visit Provider Internal Medicine
DX: E11.628 Type 2 diabetes mellitus with other skin complications (principal); E87.2 Acidosis; N17.9 Acute kidney failure, unspecified; E11.22 Type 2 diabetes mellitus with diabetic chronic kidney disease; N18.4 Chronic kidney disease, stage 4 (severe); L03.114 Cellulitis of left upper limb; E78.5 Hyperlipidemia, unspecified; M10.9 Gout, unspecified; I12.9 Hypertensive chronic kidney disease with stage 1 through stage 4 chronic kidney disease, or unspecified chronic kidney disease; Z20.828 Contact with and (suspected) exposure to other viral communicable diseases; Z79.52 Long term (current) use of systemic steroids; Z79.891 Long term (current) use of opiate analgesic; Z79.899 Other long term (current) drug therapy
CPT/HCPCS: 36415; 73200; 76775; 80048; 80202; 81001; 82550; 82784; 82947; 83036; 83605; 85025; 85610; 85652; 85730; 86140; 86160; 86334; 87040; 87635; 93971; 96361; 96365; 99225; 99285; J2543; J3370

== ENCOUNTER 2020-05-30 11:25 | Inpatient (IN) | payer MEDICARE, SELFPAY ==
[2020-05-30 11:37] VITALS: BP 125/77; PULSE 89; RESP 18; TEMP 36.9; O2SAT 97; BMI 40.4
--- NOTE | 2020-05-30 12:07 | ED_ITS ---
HPI - General Adult General Chief complaint: General Medical Stated complaint: difficulty ambulating Time Seen by Provider: 05/30/20 12:07 Source: patient Mode of arrival: ambulatory Limitations: no limitations History of Present Illness HPI narrative: 64-year-old male who recently discharged from this facility 2 da ys ago for worsening renal failure and left upper extremity cellulitis who has a history of CKD stage 4, diabetes, hypertension, dyslipidemia, gout who presents with complaint of bilateral lower extremity pain states he has had some swelling that has been present for a while now and has been increased pain to the bilateral feet diffuse. States he has had flares of gout in the past and recently did a course of prednisone that he contributes to worsening his renal function. He reports that he has been taking his antibiotics that he was discharged with his left arm cellulitis (Keflex and doxycycline) his arm is marked and he reports that he is actually feeling better in relation to the cellulitis. Onset (ago): day(s) Location: left and right Radiation: non-radiation Quality: aching Exacerbating factors: none Treatments prior to arrival: none Related Data Home Medications Medication Instructions Recorded Confirmed amlodipine 5 mg PO DAILY 05/24/20 05/30/20 azelastine 1 spray INTRANASAL BID PRN 05/24/20 05/30/20 calcitriol 0.25 mcg PO 3XW 05/24/20 05/30/20 carvedilol 3.125 mg PO BID 05/24/20 05/30/20 pravastatin 80 mg PO DAILY 05/24/20 05/30/20 prednisone 1 tab PO DAILY PRN 05/24/20 05/30/20 sodium bicarbonate 1,950 mg PO BID 05/24/20 05/30/20 Allergies Allergy/AdvReac Type Severity Reaction Status Date / Time No Known Allergies Allergy Verified 05/23/20 14:41 [No Known Allergies*] Review of Systems Review of Systems: Constitutional: No Weight loss, No Fever, No Chills, No Night Sweats, No Fatigue, No Malaise ENT/Mouth: No Hearing loss, No Ear Pain, No Nasal Congestion, No Sinus Pain, No Hoarseness, No sore throat, No Rhinorrhea, No Swallowing Difficulty Eyes: No Eye Pain, No Swelling, No Redness, No Foreign Body, No Discharge, No Vision Changes Cardiovascular: No Chest Pain, No SOB, No Dyspnea on Exertion, No Orthopnea, No Palpitations Respiratory: No Cough, No Sputum, No Wheezing, No Smoke Exposure, No Dyspnea Gastrointestinal: No Nausea, No Vomiting, No Diarrhea, No Constipation, No abdominal Pain, No Hematochezia, No Melena Genitourinary: No Dysuria, No Urinary Frequency, No Hematuria, No Urinary Incontinence, No Urgency, No Flank Pain, No Urinary Flow Changes Musculoskeletal: No joint pain, No Myalgias, No Joint Swelling Skin: No Skin Lesions, No rash Neuro: No Weakness, No Numbness, No Paresthesias, No Loss of Consciousness, No Dizziness, No Headache Psych: No Social Issues Heme/Lymph: No Bruising, No Bleeding,No Lymphadenopathy Endocrine: No Polyuria, No Polydipsia, No Temperature Intolerance Yes all other systems are reviewed and are negative [facility] Past Medical History Medical History (Updated 05/30/20 @ 20:21 by Nixon Ma NP) Aneurysm CKD (chronic kidney disease) stage 4, GFR 15-29 ml/min Diabetes mellitus Gout Hyperlipidemia Hypertension Renal failure Syncopal episodes Surgical History S/P colonoscopic polypectomy Social History Social History Household Members: None Housing: House Alcohol intake: never Smoking Status: Never smoker Use of substances other than those prescribed or required for medical reasons: No Advance Directives: No Advance Directives Information Provided: Yes service: No Current occupational status: retired Physical Exam Vital Signs: Vital Signs: Last Vital Signs Temp 98 F 05/30/20 19:17 Pulse 95 05/30/20 19:17 Resp 18 05/30/20 19:17 BP 160/83 H 05/30/20 19:17 Pulse Ox 95 05/30/20 19:17 Body Mass Index 40.4 Reviewed Const: Other: Poorly kempt, obese Nutritional Appearance: obese Anuj entation/consciousness: patient oriented x3 HENMT: Head: Yes normal to inspection Ears: hearing grossly normal bilaterally Eyes: General: appearance normal, both eyes and all related structures Visual Diane: normal visual diane by confrontation Neck: Neck: Yes normal visual inspection, No positive Brudzinski's sign, No positive Kernig's sign and No tender Thyroid: Thyroid normal Chest: Chest palpation & inspection: normal inspection of the chest Resp: Effort & Inspection: normal respiratory effort Auscultation: clear to auscultation bilaterally Cardio: Jugular venous distension: no JVD Rhythm: regular rhythm Heart sounds: S1 normal heart sound present and S2 normal heart sound present GI: Inspection: Yes normal to inspection Percussion: Yes normal to percussion Auscultation: normal bowel sounds : General: Yes no CVA tenderness Back/Spine/Pelvis: Back: no CVA tenderness Skin: Other: General skin exam: no rashes or lesions noted Neuro: General: patient oriented x3 Extrem: General: Yes normal to inspection Course Course Course Narrative: In view of 64-year-old male with above history including history of chronic kidney disease stage 4 with recent worsening, diabetes, hypertension, hyperlipidemia, gout having worsening renal function as well bilateral lower extremity pain seems to be chronic lower extremity edema history of gout as well atypical. Has done recent course of prednisone. Negative Homans. Case discussed with Nephrology as well as hospitalist will admit for further evaluation of the renal function including possible biopsy and HD. Consultations Consultation #1: Case discussed with nephrology Dr. Green- consideration for HD, admit will follow-up tomorrow. Medical Decision Making Lab Data Result diagrams: 05/30/20 13:35 05/30/20 13:35 Labs: Lab Results 05/30/20 05/30/20 05/30/20 Range/Units 13:35 13:35 13:35 WBC 12.9 H (4.8-10.8) X10*3/uL RBC 3.73 L (4.60-5.80) X10*6/uL Hgb 10.6 L (14.0-18.0) g/dl Hct 32.7 L (42-52) % MCV 87.7 (80-98) fL MCH 28.4 (27.0-33.0) pg MCHC 32.4 (31.0-36.0) g/dl RDW 12.8 (11.0-16.0) % Plt Count 245 (160-400) X10*3/uL MPV 9.9 (9.4-12.4) fL Immature Gran % (Auto) 2.7 H (0.0-0.4) % Neut % (Auto) 83.7 H (45-73) % Lymph % (Auto) 4.6 L (20-40) % Collier % (Auto) 7.6 (2-11) % Eos % (Auto) 1.2 (0-4) % Baso % (Auto) 0.2 (0-2) % Lymph # (Auto) 0.6 L (1.2-4.9) X10*3/uL Collier # (Auto) 1.0 (0.1-1.2) X10*3/uL Eos # (Auto) 0.2 (0.0-0.4) X10*3/uL Baso # (Auto) 0.0 (0.0-0.2) X10*3/uL Abs Immat Gran (auto) 0.35 H (0.00-0.03) X10*3/uL Absolute Neuts (auto) 10.8 H (2.0-8.3) X10*3/uL Absolute Nucleated RBC 0.000 (0.0-0.012) X10*3/uL Nucleated RBC % (auto) 0.0 (0.0-0.2) /100WBC Smear Tech's Comments VERIFIED PT (10.8-13.0) SEC INR (0.9-1.1) APTT (24.1-38.0) SEC Sodium 134 L (135-145) mmol/L Potassium 4.7 (3.3-5.1) mmol/l Chloride 99 (96-108) mmol/L Carbon Dioxide 22 (22-29) mmol/L Anion Gap 18 (12-20) BUN 72 H (9-16) mg/dL Creatinine 6.63 H* (0.5-1.4) mg/dL Estim Creat Clear Calc 15.5 Estimated GFR 8 Random Glucose 138 H (60-115) mg/dL Calcium 7.4 L D (8.4-10.2) mg/dL Total Bilirubin 0.3 (0.0-1.0) mg/dL AST 23 (5-37) U/L ALT 29 (0-40) U/L Alkaline Phosphatase 79 (39-117) U/L B-Natriuretic Peptide 91 (<100) pg/mL Total Protein 5.0 L (6.5-8.0) g/dL Albumin 2.2 L (3.5-5.0) g/dL COVID-19 (DEE DEE) (Negative) COVID-19 Clin Com 05/30/20 05/30/20 Range/Units 13:35 16:43 WBC (4.8-10.8) X10*3/uL RBC (4.60-5.80) X10*6/uL Hgb (14.0-18.0) g/dl Hct (42-52) % MCV (80-98) fL MCH (27.0-33.0) pg MCHC (31.0-36.0) g/dl RDW (11.0-16.0) % Plt Count (160-400) X10*3/uL MPV (9.4-12.4) fL Immature Gran % (Auto) (0.0-0.4) % Neut % (Auto) (45-73) % Lymph % (Auto) (20-40) % Collier % (Auto) (2-11) % Eos % (Auto) (0-4) % Baso % (Auto) (0-2) % Lymph # (Auto) (1.2-4.9) X10*3/uL Collier # (Auto) (0.1-1.2) X10*3/uL Eos # (Auto) (0.0-0.4) X10*3/uL Baso # (Auto) (0.0-0.2) X10*3/uL Abs Immat Gran (auto) (0.00-0.03) X10*3/uL Absolute Neuts (auto) (2.0-8.3) X10*3/uL Absolute Nucleated RBC (0.0-0.012) X10*3/uL Nucleated RBC % (auto) (0.0-0.2) /100WBC Smear Tech's Comments PT 15.6 H D (10.8-13.0) SEC INR 1.3 H (0.9-1.1) APTT 34.1 D (24.1-38.0) SEC Sodium (135-145) mmol/L Potassium (3.3-5.1) mmol/l Chloride (96-108) mmol/L Carbon Dioxide (22-29) mmol/L Anion Gap (12-20) BUN (9-16) mg/dL Creatinine (0.5-1.4) mg/dL Estim Creat Clear Calc Estimated GFR Random Glucose (60-115) mg/dL Calcium (8.4-10.2) mg/dL Total Bilirubin (0.0-1.0) mg/dL AST (5-37) U/L ALT (0-40) U/L Alkaline Phosphatase (39-117) U/L B-Natriuretic Peptide (<100) pg/mL Total Protein (6.5-8.0) g/dL Albumin (3.5-5.0) g/dL COVID-19 (DEE DEE) Negative (Negative) COVID-19 Clin Com See Note Discharge Plan Discharge Clinical Impression: Acute kidney injury superimposed on chronic kidney disease Patient Disposition: Admitted As Inpatient Prescriptions: No Action prednisone 20 mg tablet 1 tab PO DAILY PRN (Reason: Inflammation) RF: 0 amlodipine 5 mg tablet 5 mg PO DAILY RF: 0 carvedilol 3.125 mg tablet 3.125 mg PO BID RF: 0 pravastatin 80 mg tablet 80 mg PO DAILY RF: 0 sodium bicarbonate 650 mg tablet 1,950 mg PO BID RF: 0 calcitriol 0.25 mcg capsule 0.25 mcg PO 3XW RF: 0 azelastine 0.15 % (205.5 mcg) spray,non-aerosol 1 spray intranasal BID PRN (Reason: allergies) RF: 0
--- NOTE | 2020-05-30 12:13 | ECG_ITS ---
Test Reason : CELLULITIS Blood Pressure : / mmHG Vent. Rate : 087 BPM Atrial Rate : 087 BPM P-R Int : 218 ms QRS Dur : 094 ms QT Int : 362 ms P-R-T Axes : 011 -17 040 degrees QTc Int : 435 ms Sinus rhythm with 1st degree A-V block Otherwise normal ECG No previous ECGs available Referred By: Nixon Ma Electronically Signed By:MARTHA PENALOZA
[2020-05-30 13:31] VITALS: BP 142/73; PULSE 79; RESP 18; TEMP 36.9; O2SAT 97
[2020-05-30 13:41] LABS: Basophils Percent Auto 0.2 % (0-2); Eosinophils Absolute Auto 0.2 X10*3/uL (0.0-0.4); Eosinophils Percent Auto 1.2 % (0-4); Hematocrit 32.7 % (42-52); Hemoglobin 10.6 g/dl (14.0-18.0); Imm Gran Abs Auto 0.35 X10*3/uL (0.00-0.03); Imm Gran Pct Auto 2.7 % (0.0-0.4); Lymphocytes Absolute Auto 0.6 X10*3/uL (1.2-4.9); Lymphocytes Percent Auto 4.6 % (20-40); MANUAL DIFF FLAG SCAN; Mean Corpuscular HGB Conc 32.4 g/dl (31.0-36.0); Mean Corpuscular Hemoglobin 28.4 pg (27.0-33.0); Mean Corpuscular Volume 87.7 fL (80-98); Mean Platelet Volume 9.9 fL (9.4-12.4); Monocytes Percent Auto 7.6 % (2-11); Neutrophils Absolute Auto 10.8 X10*3/uL (2.0-8.3); Neutrophils Percent Auto 83.7 % (45-73); Platelet Count 245 X10*3/uL (160-400); Red Cell Distribution Width 12.8 % (11.0-16.0); SCAN SMEAR FLAG 1; White Blood Count 12.9 X10*3/uL (4.8-10.8)
[2020-05-30 13:42] LABS: Red Blood Count 3.73 X10*6/uL (4.60-5.80)
[2020-05-30 13:48] LABS: INTERNATIONAL NORM RATIO 1.3 (0.9-1.1); Prothrombin Time 15.6 SEC (10.8-13.0)
[2020-05-30 13:51] LABS: Partial Thromboplastin Time 34.1 SEC (24.1-38.0)
[2020-05-30 13:59] LABS: SLIDE REVIEW VERIFIED
[2020-05-30 14:13] LABS: B Type Natriuretic Peptide 91 pg/mL (<100)
[2020-05-30 14:26] LABS: Alanine Aminotransferase 29 U/L (0-40); Albumin Level 2.2 g/dL (3.5-5.0); Alkaline Phosphatase 79 U/L (39-117); Anion Gap 18 (12-20); Aspartate Amino Transferase 23 U/L (5-37); Bilirubin Total 0.3 mg/dL (0.0-1.0); Blood Urea Nitrogen 72 mg/dL (9-16); Calcium 7.4 mg/dL (8.4-10.2); Carbon Dioxide 22 mmol/L (22-29); Chloride 99 mmol/L (96-108); Creatinine Clr Calc Pharmacy 15.5; Estimated Glomerular Filt Rate 8; Glucose Random 138 mg/dL (60-115); Potassium 4.7 mmol/l (3.3-5.1); Sodium 134 mmol/L (135-145)
--- NOTE | 2020-05-30 16:12 | PM.EVENT ---
Event Note Date of Service: 05/30/20 Event Note: Patient seen and examined independently and was present during islas portion of E/M service. Agree with midlevel's history, physical, assessment, and plan. 64M presented with bilateral foot edema and pain, difficulty ambulating polyarticular gout flare prednisone 40mg daily CKD V approaching HD renal eval recent cellultis continue po keflex, doxy
--- NOTE | 2020-05-30 16:16 | PM.IMHP ---
History of Present Illness Date of Service: 05/30/20 Chief Complaint: Foot pain, leg edema This is a 64-year-old male with CKD, recent admission for left arm cellulitis who presents to the emergency department with leg pain. He was admitted and treated with doxycycline and Keflex and discharged on 05/27. During that admission he was also noted to have progression of his chronic kidney disease. He was evaluated by the arc air operator who did not feel that dialysis is indicated at that time. He reports significant swelling in his feet over the past few days as well as pain and difficulty ambulating. Lab work showed further progression of kidney disease with a creatinine of 6.63. Nephrology was contacted by the emergency room provider who felt the patient should be admitted for possible initiation of dialysis. Review of Systems Review of Systems: Yes all other systems are reviewed and are negative Constitutional: Constitutional: Denies chills and Denies fever(s) Cardiovascular: Cardiovascular: Denies chest pain Respiratory: Respiratory: Denies cough Gastrointestinal: Gastrointestinal: Denies abdominal pain [facility] Medical History (Updated 05/30/20 @ 16:19 by NATALIYA Yepez) Aneurysm CKD (chronic kidney disease) stage 4, GFR 15-29 ml/min Diabetes mellitus Gout Hyperlipidemia Hypertension Renal failure Syncopal episodes Functional capacity: independent ambulation Family history: reviewed and not pertinent Surgical History S/P colonoscopic polypectomy Social History Household Members: None Housing: House Alcohol intake: never Smoking Status: Never smoker Use of substances other than those prescribed or required for medical reasons: No Advance Directives: No Advance Directives Information Provided: Yes service: No Current occupational status: retired Meds Allergies Allergy/AdvReac Type Severity Reaction Status Date / Time No Known Allergies Allergy Verified 05/23/20 14:41 [No Known Allergies*] Home Medications Medication Instructions Recorded Confirmed Type amlodipine 5 mg PO DAILY 05/24/20 05/30/20 History azelastine 1 spray INTRANASAL BID PRN 05/24/20 05/30/20 History calcitriol 0.25 mcg PO 3XW 05/24/20 05/30/20 History carvedilol 3.125 mg PO BID 05/24/20 05/30/20 History pravastatin 80 mg PO DAILY 05/24/20 05/30/20 History prednisone 1 tab PO DAILY PRN 05/24/20 05/30/20 History sodium bicarbonate 1,950 mg PO BID 05/24/20 05/30/20 History Physical Exam Vital Signs and Narrative: Vital Signs: Last Vital Signs Temp 98.5 F 05/30/20 13:31 Pulse 79 05/30/20 13:31 Resp 18 05/30/20 13:31 BP 142/73 H 05/30/20 13:31 Pulse Ox 97 05/30/20 13:31 Body Mass Index 40.4 Const: Nutritional Appearance: well nourished and overweight Orientation/consciousness: patient oriented x3 HENMT: Head: Yes normocephalic and Yes atraumatic Eyes: Sclerae: sclerae normal Chest: Chest palpation & inspection: normal inspection of the chest Resp: Effort & Inspection: normal respiratory effort and no respiratory distress Auscultation: clear to auscultation bilaterally Cardio: Rate: regular rate Rhythm: regular rhythm GI: Palpation (GI): Soft to palpation and nontender Skin: General skin exam: no rashes or lesions noted Neuro: General: patient oriented x3 Cranial nerves: Yes CN's II-XII intact bilaterally and Yes Bilaterally intact EOM present Extrem: Other: Bilateral 3+ pitting edema to lower extremities. Patch of erythema dorsal surface right midfoot with associated tenderness, no fluctuance or induration. Smaller area of erythema on left midfoot. Results Labs CBC and Chem 7: 05/30/20 13:35 05/30/20 13:35 Labs: Laboratory Results - last 24 hr 05/30/20 05/30/20 05/30/20 13:35 13:35 13:35 MCV 87.7 MCH 28.4 MCHC 32.4 RDW 12.8 Plt Count 245 MPV 9.9 Immature Gran % (Auto) 2.7 H Neut % (Auto) 83.7 H Lymph % (Auto) 4.6 L [place] % (Auto) 7.6 Eos % (Auto) 1.2 Baso % (Auto) 0.2 Lymph # (Auto) 0.6 L [place] # (Auto) 1.0 Eos # (Auto) 0.2 Baso # (Auto) 0.0 Abs Immat Gran (auto) 0.35 H Absolute Neuts (auto) 10.8 H Absolute Nucleated RBC 0.000 Nucleated RBC % (auto) 0.0 Smear Tech's Comments VERIFIED PT INR APTT Anion Gap 18 Estim Creat Clear Calc 15.5 Estimated GFR 8 Random Glucose 138 H Calcium 7.4 L D Total Bilirubin 0.3 AST 23 ALT 29 Alkaline Phosphatase 79 B-Natriuretic Peptide 91 Total Protein 5.0 L Albumin 2.2 L 05/30/20 13:35 MCV MCH MCHC RDW Plt Count MPV Immature Gran % (Auto) Neut % (Auto) Lymph % (Auto) [place] % (Auto) Eos % (Auto) Baso % (Auto) Lymph # (Auto) [place] # (Auto) Eos # (Auto) Baso # (Auto) Abs Immat Gran (auto) Absolute Neuts (auto) Absolute Nucleated RBC Nucleated RBC % (auto) Smear Tech's Comments PT 15.6 H D INR 1.3 H APTT 34.1 D Anion Gap Estim Creat Clear Calc Estimated GFR Random Glucose Calcium Total Bilirubin AST ALT Alkaline Phosphatase B-Natriuretic Peptide Total Protein Albumin Assessment and Plan (1) Gout: Status: Acute This is a 64-year-old male with a history of CKD, diabetes, hypertension, dyslipidemia, gout, recent admission for left arm cellulitis who presents with foot pain and increasing lower extremity edema found to have worsening renal function Polyarticular gout flare -oral prednisone KEVIN on CKD4 Worsening renal function Nephrology consult to determine need for initiating dialysis left arm cellullitis dx on last admission continue keflex, doxy h/o Diabetes hasn't taken meds in years since significant weight loss will check Hba1c HTN Continue Norvasc, carvedilol HLD Continue statin DVT prophylaxis-heparin Code status-full code This case was discussed with Dr. Voss
[2020-05-30 16:57] VITALS: BP 166/89; PULSE 89; RESP 18; TEMP 36.9; O2SAT 96
[2020-05-30] MEDS: Heparin Sodium,Porcine 5,000 UNIT/ML VIAL 5000 UNIT SUBCUT (16:59)
[2020-05-30] MEDS: predniSONE 20 MG TABLET 40 MG PO (16:59)
[2020-05-30] MEDS: cephALEXin 500 MG CAPSULE PO (16:59)
[2020-05-30 17:17] LABS: COVID-19 Test Negative (Negative); IDNOW Serial# 9DD0AD1C
[2020-05-30] MEDS: oxyCODONE HCl Immed Release 5 MG TABLET PO (18:08)
[2020-05-30 19:17] VITALS: BP 160/83; PULSE 95; RESP 18; TEMP 36.6; O2SAT 95
[2020-05-30 21:54] VITALS: BP 160/83; PULSE 94
[2020-05-30] MEDS: carvediloL 3.125 MG TABLET PO (21:54)
[2020-05-30 22:04] LABS: Glucose Urine UA 100 MG/DL (NEG); Leukocyte Esterase Urine NEG (NEG); Nitrite Urine NEG (NEG); Urine Blood 2+ (NEG); Urine Ketones NEG (NEG); Urine Protein 2+ MG/DL (NEG-TRACE)
[2020-05-30 22:10] LABS: Appearance Urine HAZY; Color Urine YELLOW
[2020-05-30 22:19] LABS: Bacteria Urine 1+ /LPF; Mucus Urine 1+ /LPF; Squamous Epithelial Cell Urine 1+ /LPF
[2020-05-30 22:27] LABS: Amphetamine Screen Urine Not Detected (Not Detect); Barbiturates, Urine Not Detected (Not Detect); Benzodiazepines Screen Urine Not Detected (Not Detect); Cannabinoid Screen Urine Not Detected (Not Detect); Cocaine Screen Urine Not Detected (Not Detect); Opiate Screen Urine Not Detected (Not Detect); Phencyclidine Screen Urine Not Detected (Not Detect)
[2020-05-31] VITALS (7 sets, daily range): BP systolic 129–175; BP diastolic 71–93; PULSE 75–86; RESP 18–20; TEMP 35.7–36.9; O2SAT 95–98; BMI 40.4
[2020-05-31] MEDS: Sodium Bicarbonate 650 MG TABLET 1950 MG PO ×3 (00:43→20:48)
[2020-05-31] MEDS: 0.9 % Sodium Chloride Flush 3 ML SYRINGE IVFLUSH ×4 (00:44→20:49)
[2020-05-31 03:17] LABS: Estimated Average Glucose 146 mg/dL; Hemoglobin A1c % 6.7 %
[2020-05-31] MEDS: cephALEXin 500 MG CAPSULE PO ×2 (04:21→16:22)
[2020-05-31] MEDS: Heparin Sodium,Porcine 5,000 UNIT/ML VIAL 5000 UNIT SUBCUT ×2 (04:21→16:21)
[2020-05-31 07:38] LABS: Anion Gap 19 (12-20); Blood Urea Nitrogen 79 mg/dL (9-16); Calcium 7.6 mg/dL (8.4-10.2); Carbon Dioxide 19 mmol/L (22-29); Chloride 100 mmol/L (96-108); Creatinine Clr Calc Pharmacy 16.2; Estimated Glomerular Filt Rate 9; Glucose Random 200 mg/dL (60-115); Potassium 4.3 mmol/l (3.3-5.1); Sodium 134 mmol/L (135-145)
[2020-05-31] MEDS: predniSONE 20 MG TABLET 40 MG PO (07:59)
[2020-05-31] MEDS: carvediloL 3.125 MG TABLET PO (08:00)
[2020-05-31] MEDS: amLODIPine Besylate 5 MG TABLET PO (08:00)
[2020-05-31] MEDS: calcitrioL 0.25 MCG CAPSULE PO (08:02)
[2020-05-31 08:21] LABS: Glucose, Whole Blood 177 mg/dL (60-115)
--- NOTE | 2020-05-31 08:47 | MHC.CM.PN ---
MALE 64 DX CKD FLUID OVERLOAD. Pt lives alone. He has been independent. recent admit and dc L Elbow Cellulitis. At that time renal function was inpaired. The Patient was discharged to home 05/28/20. Patient returns with LE edema NATHANAEL. Patient stated that his legs became so swollen at home, that he could not ambulate. A HCP was documented and placed in his chart. DP home with private transport. CM will follow to assess for change in DC needs.
[2020-05-31] MEDS: Pravastatin Sodium 80 MG TABLET PO (11:45)
--- NOTE | 2020-05-31 12:28 | PM.PNNEP ---
Subjective Subjective Date of Service: 05/31/20 Interval history: Patient seen and examined consult dictated Physical Exam Vital Signs: Vital Signs: Last Vital Signs Temp 97.6 F 05/31/20 11:43 Pulse 75 05/31/20 11:43 Resp 18 05/31/20 11:43 BP 144/81 H 05/31/20 11:43 Pulse Ox 95 05/31/20 11:43 Body Mass Index 40.4 Objective Data Labs CBC & Chem 7: 05/30/20 13:35 05/31/20 05:13 Labs: Laboratory Results - last 24 hr 05/30/20 05/30/20 05/30/20 13:35 13:35 13:35 WBC 12.9 H RBC 3.73 L Hgb 10.6 L Hct 32.7 L MCV 87.7 MCH 28.4 MCHC 32.4 RDW 12.8 Plt Count 245 MPV 9.9 Immature Gran % (Auto) 2.7 H Neut % (Auto) 83.7 H Lymph % (Auto) 4.6 L [place] % (Auto) 7.6 Eos % (Auto) 1.2 Baso % (Auto) 0.2 Lymph # (Auto) 0.6 L [place] # (Auto) 1.0 Eos # (Auto) 0.2 Baso # (Auto) 0.0 Abs Immat Gran (auto) 0.35 H Absolute Neuts (auto) 10.8 H Absolute Nucleated RBC 0.000 Nucleated RBC % (auto) 0.0 Smear Tech's Comments VERIFIED PT INR APTT Sodium 134 L Potassium 4.7 Chloride 99 Carbon Dioxide 22 Anion Gap 18 BUN 72 H Creatinine 6.63 H* Estim Creat Clear Calc 15.5 Estimated GFR 8 POC Glucose Random Glucose 138 H Estimat Average Glucose Hemoglobin A1c % Calcium 7.4 L D Total Bilirubin 0.3 AST 23 ALT 29 Alkaline Phosphatase 79 B-Natriuretic Peptide 91 Total Protein 5.0 L Albumin 2.2 L Urine Color Urine Appearance Urine pH Ur Specific [place] Urine Protein Urine Glucose (UA) Urine Ketones Urine Blood Urine Nitrite Ur Leukocyte Esterase Urine RBC Urine WBC Ur Squamous Epith Cells Urine Bacteria Hyaline Casts Urine Mucus Urine Opiates Screen Ur Barbiturates Screen Ur Phencyclidine Scrn Ur Amphetamines Screen U Benzodiazepines Scrn Urine Cocaine Screen U Marijuana (THC) Screen COVID-19 (DEE DEE) COVID-19 Clin Com 05/30/20 05/30/20 05/30/20 13:35 13:35 16:43 WBC RBC Hgb Hct MCV MCH MCHC RDW Plt Count MPV Immature Gran % (Auto) Neut % (Auto) Lymph % (Auto) [place] % (Auto) Eos % (Auto) Baso % (Auto) Lymph # (Auto) [place] # (Auto) Eos # (Auto) Baso # (Auto) Abs Immat Gran (auto) Absolute Neuts (auto) Absolute Nucleated RBC Nucleated RBC % (auto) Smear Tech's Comments PT 15.6 H D INR 1.3 H APTT 34.1 D Sodium Potassium Chloride Carbon Dioxide Anion Gap BUN Creatinine Estim Creat Clear Calc Estimated GFR POC Glucose Random Glucose Estimat Average Glucose 146 Hemoglobin A1c % 6.7 Calcium Total Bilirubin AST ALT Alkaline Phosphatase B-Natriuretic Peptide Total Protein Albumin Urine Color Urine Appearance Urine pH Ur Specific [place] Urine Protein Urine Glucose (UA) Urine Ketones Urine Blood Urine Nitrite Ur Leukocyte Esterase Urine RBC Urine WBC Ur Squamous Epith Cells Urine Bacteria Hyaline Casts Urine Mucus Urine Opiates Screen Ur Barbiturates Screen Ur Phencyclidine Scrn Ur Amphetamines Screen U Benzodiazepines Scrn Urine Cocaine Screen U Marijuana (THC) Screen COVID-19 (DEE DEE) Negative COVID-19 Clin Com See Note 05/30/20 05/30/20 05/31/20 21:56 21:56 05:13 WBC RBC Hgb Hct MCV MCH MCHC RDW Plt Count MPV Immature Gran % (Auto) Neut % (Auto) Lymph % (Auto) [place] % (Auto) Eos % (Auto) Baso % (Auto) Lymph # (Auto) [place] # (Auto) Eos # (Auto) Baso # (Auto) Abs Immat Gran (auto) Absolute Neuts (auto) Absolute Nucleated RBC Nucleated RBC % (auto) Smear Tech's Comments PT INR APTT Sodium 134 L Potassium 4.3 Chloride 100 Carbon Dioxide 19 L Anion Gap 19 BUN 79 H Creatinine 6.36 H* Estim Creat Clear Calc 16.2 Estimated GFR 9 POC Glucose Random Glucose 200 H D Estimat Average Glucose Hemoglobin A1c % Calcium 7.6 L Total Bilirubin AST ALT Alkaline Phosphatase B-Natriuretic Peptide Total Protein Albumin Urine Color YELLOW Urine Appearance HAZY Urine pH 6.0 Ur Specific [place] 1.020 Urine Protein 2+ H Urine Glucose (UA) 100 H Urine Ketones NEG Urine Blood 2+ H Urine Nitrite NEG Ur Leukocyte Esterase NEG Urine RBC 5-9 H Urine WBC 1-4 Ur Squamous Epith Cells 1+ Urine Bacteria 1+ Hyaline Casts 1-4 Urine Mucus 1+ Urine Opiates Screen Not Detected Ur Barbiturates Screen Not Detected Ur Phencyclidine Scrn Not Detected Ur Amphetamines Screen Not Detected U Benzodiazepines Scrn Not Detected Urine Cocaine Screen Not Detected U Marijuana (THC) Screen Not Detected COVID-19 (DEE DEE) COVID-19 Clin Com 05/31/20 07:47 WBC RBC Hgb Hct MCV MCH MCHC RDW Plt Count MPV Immature Gran % (Auto) Neut % (Auto) Lymph % (Auto) [place] % (Auto) Eos % (Auto) Baso % (Auto) Lymph # (Auto) [place] # (Auto) Eos # (Auto) Baso # (Auto) Abs Immat Gran (auto) Absolute Neuts (auto) Absolute Nucleated RBC Nucleated RBC % (auto) Smear Tech's Comments PT INR APTT Sodium Potassium Chloride Carbon Dioxide Anion Gap BUN Creatinine Estim Creat Clear Calc Estimated GFR POC Glucose 177 H Random Glucose Estimat Average Glucose Hemoglobin A1c % Calcium Total Bilirubin AST ALT Alkaline Phosphatase B-Natriuretic Peptide Total Protein Albumin Urine Color Urine Appearance Urine pH Ur Specific [place] Urine Protein Urine Glucose (UA) Urine Ketones Urine Blood Urine Nitrite Ur Leukocyte Esterase Urine RBC Urine WBC Ur Squamous Epith Cells Urine Bacteria Hyaline Casts Urine Mucus Urine Opiates Screen Ur Barbiturates Screen Ur Phencyclidine Scrn Ur Amphetamines Screen U Benzodiazepines Scrn Urine Cocaine Screen U Marijuana (THC) Screen COVID-19 (DEE DEE) COVID-19 Clin Com Assessment & Plan Assessment and plan (1) KEVIN (acute kidney injury): Status: Acute (2) CKD (chronic kidney disease) stage 4, GFR 15-29 ml/min: Status: Acute Assessment and Plan: worsening kidney functon complement level and serum immunofixation previous admission normal KEVIN superimposed on advanced CKD unclear etiology cannot exclude progressive hypertensive and diabetic kidney disease patient refused kidney biopsy previously now agreeable followed by Dr Green known severe CKD serum creatinine ~ 3 mg/dl recently REC kidney biopsy if patient agreeable dose medication for eGFR < 15 ml/min sodium bicarbonate protect non dominant arm no indication for dialysis follow kidney function and electrolytes Thank you Time Spent With Patient Time: Total time spent is greater than 50% in coordination of care (as documented) at patient's floor/unit and/or counseling patient:
--- NOTE | 2020-05-31 15:22 | HO.PM.IMPN ---
Subjective Subjective Date of Service: 05/31/20 Interval History: Being followed on acute on chronic kidney disease, and bilateral foot pain, patient complaining of persistent bilateral foot pain but improved since admission, left arm swelling and redness is improving, no other acute issues since admission. Review of Systems General no headache, no dizziness, no fever chills. CVS no chest pain, no palpitation. Respiratory no cough, no sputum production ,no respiratory distress. Gastrointestinal no nausea, no vomiting, no abdominal pain Physical Exam Vital Signs: Vital Signs: Last Vital Signs Temp 97.6 F 05/31/20 11:43 Pulse 75 05/31/20 11:43 Resp 18 05/31/20 11:43 BP 144/81 H 05/31/20 11:43 Pulse Ox 95 05/31/20 11:43 Body Mass Index 40.4 General patient resting, no acute distress. Neck is supple no JVD. CVS regular rate rhythm, Respiratory lungs clear to auscultation, no respiratory distress, no wheeze, no rhonchi. Gastrointestinal abdomen soft, nontender, bowel sounds audible. Extremities bilateral edema improving, mild redness dorsum of both feet, no tenderness or swelling of both big toes, normal examination of both ankles and knees. Neuro nonfocal Psych normal insight Skin no rash Objective Data Current Medications Generic Name Dose Route Start Last Admin Trade Name Freq PRN Reason Stop Dose Admin Acetaminophen 650 mg 05/30/20 16:15 Acetaminophen 325 Mg Tablet PO Q6H PRN Pain, Mild (Pain Scale 1-3) Amlodipine Besylate 5 mg 05/31/20 09:00 05/31/20 08:00 Amlodipine Besylate 5 Mg Tablet PO 5 mg DAILY LEONARDO Administration Protocol Calcitriol 0.25 mcg 05/31/20 09:00 05/31/20 08:02 Calcitriol 0.25 Mcg Capsule PO 0.25 mcg [id number] LEONARDO Administration Carvedilol 3.125 mg 05/30/20 21:00 05/31/20 08:00 Carvedilol 3.125 Mg Tablet PO 3.125 mg BID LEONARDO Administration Protocol Cephalexin HCl 500 mg 05/30/20 16:45 05/31/20 04:21 Cephalexin 500 Mg Capsule PO 500 mg Q12H LEONARDO Administration Docusate Sodium 100 mg 05/31/20 00:05 Docusate Sodium 100 Mg Capsule PO DAILY PRN Constipation Doxycycline Hyclate 100 mg 05/30/20 16:45 05/31/20 04:21 Doxycycline Hyclate 100 Mg Tablet PO 100 mg Q12H LEONARDO Administration Heparin Sodium (Porcine) 5,000 unit 05/30/20 16:15 05/31/20 04:21 Heparin Sodium,Porcine 5,000 Unit/Ml Vial SUBCUT 5,000 unit Q12H LEONARDO Administration Ondansetron HCl 4 mg 05/31/20 00:05 Ondansetron Hcl 4 Mg/2 Ml Vial IVPUSH Q8H PRN Nausea and Vomiting Pharmacy Consult 1 each 05/30/20 15:42 Consult Rx Perform Med Rec MISCELLANE ONCE PRN Consult order Pravastatin Sodium 80 mg 05/31/20 09:00 05/31/20 11:45 Pravastatin Sodium 80 Mg Tablet PO 80 mg DAILY LEONARDO Administration Prednisone 40 mg 05/30/20 16:15 05/31/20 07:59 Prednisone 20 Mg Tablet PO 40 mg DAILY LEONARDO Administration Sodium Bicarbonate 1,950 mg 05/30/20 21:00 05/31/20 08:00 Sodium Bicarbonate 650 Mg Tablet PO 1,950 mg BID LEONARDO Administration Sodium Chloride 3 ml 05/31/20 00:05 05/31/20 08:00 0.9 % Sodium Chloride Flush 3 Ml Syringe IVFLUSH 3 ml QSHIFT LEONARDO Administration Labs CBC & Chem 7: 05/30/20 13:35 05/31/20 05:13 Assessment and Plan (1) Acute kidney injury superimposed on chronic kidney disease: Status: Acute (2) Gout: Status: Acute (3) Metabolic acidosis: Status: Acute (4) Cellulitis: Status: Acute Assessment and Plan: 64-year-old male with a history of CKD, diabetes, hypertension, dyslipidemia, gout, recent admission for left arm cellulitis who presents with foot pain and increasing lower extremity edema found to have worsening renal function Polyarticular gout flare -oral prednisone KEVIN on CKD4 Worsening renal function Nephrology consult to determine need for initiating dialysis 64-year-old male with a history of CKD, diabetes, hypertension, dyslipidemia, gout, recent admission for left arm cellulitis who presents with foot pain and increasing lower extremity edema found to have worsening renal function KEVIN on CKD4 Noted to have Worsening renal function since last admission, today creatinine is a little better since admit, patient seen by Nephrology and they are recommending renal biopsy, question KEVIN due to longstanding hypertension and diabetes, INR 1.3, platelet count are stable, will follow BMP closely avoid nephrotoxic medication and give all medication renally dose, keep him NPO after midnight, will hold heparin. Elevated uric acid with concern for Polyarticular gout flare, patient does not have typical symptoms of gouty flare with no significant erythema tenderness to palpation or swelling, patient has chronically elevated uric acid level currently on oral prednisone with less pain and swelling will check CRP and ESR and rapidly taper steroid. left arm cellullitis dx on last admission, redness and swelling has significantly improved will continue keflex, and doxy h/o Diabetes hasn't taken meds in years since significant weight loss Hba1c 6.7 elevated blood sugars likely due to steroid will place on insulin sliding scale HTN BP noted to be elevated on Norvasc 5 mg, and carvedilol 3.125, will increase dose of Coreg to 6.25 mg HLD Continue statin DVT prophylaxis-on heparin will place on compression stocking since will possibly undergo for renal biopsy Code status-full code
[2020-05-31] MEDS: carvediloL 3.125 MG TABLET 6.25 MG PO (20:49)
[2020-06-01] VITALS (8 sets, daily range): BP systolic 140–177; BP diastolic 70–89; PULSE 65–73; RESP 15–20; TEMP 36.1–36.6; O2SAT 96–99
--- NOTE | 2020-06-01 | CT_ITS ---
PROCEDURE: CT GUIDED BIOPSY, KIDNEY CLINICAL INFORMATION: Acute on chronic renal failure COMPARISON: Previous renal ultrasound 05/24/2020 TECHNIQUE: Procedure and risks and benefits including bleeding, infection and injury to the kidney were discussed with the patient and informed consent was obtained. The patient was positioned in the right decubitus position. Limited axial images through the kidneys were performed. The left flank was prepped and draped in the usual sterile fashion. Using CT guidance and a coaxial system, access to the lower pole of the left kidney was obtained. 3 18-gauge core biopsies were obtained. Subsequently, 4 Gelfoam pledgets were inserted through the coaxial needle and hemostasis was achieved. There was no complication. Patient received Versed 1 mg and fentanyl 50 mcg intravenously during the procedure. Total sedation time was [address] examination was performed using dose optimization techniques as appropriate, variously including the following: *Automated exposure control *Adjustment of mA and/or kV according to patient size (this includes techniques or standardized protocols for targeted exams where dose is matched to indication/reason for exam; i.e. extremities or head) *Use of iterative reconstruction technique DLP: 355 mGy-cm FINDINGS: The kidneys are unremarkable. No hematoma post renal biopsy seen. CT/CT biopsy renal LT IMPRESSION: CT-guided left lower pole renal biopsy.
[2020-06-01] MEDS: cephALEXin 500 MG CAPSULE PO ×2 (04:39→16:55)
[2020-06-01 07:32] LABS: Anion Gap 20 (12-20); Blood Urea Nitrogen 89 mg/dL (9-16); C Reactive Protein 18.65 mg/dL (< or = 0.50); Calcium 7.7 mg/dL (8.4-10.2); Carbon Dioxide 19 mmol/L (22-29); Chloride 100 mmol/L (96-108); Creatinine Clr Calc Pharmacy 16.8; Estimated Glomerular Filt Rate 9; Glucose Random 149 mg/dL (60-115); Potassium 5.2 mmol/l (3.3-5.1); Sodium 134 mmol/L (135-145)
--- NOTE | 2020-06-01 07:39 | PC.NURSE ---
dr. strong responded via tiger text ok
[2020-06-01] MEDS: Sodium Bicarbonate 650 MG TABLET 1950 MG PO ×2 (08:05→21:15)
[2020-06-01] MEDS: predniSONE 20 MG TABLET 40 MG PO (08:05)
[2020-06-01] MEDS: amLODIPine Besylate 5 MG TABLET PO (08:05)
[2020-06-01] MEDS: 0.9 % Sodium Chloride Flush 3 ML SYRINGE IVFLUSH ×3 (08:05→23:07)
[2020-06-01] MEDS: Pravastatin Sodium 80 MG TABLET PO (08:05)
[2020-06-01] MEDS: carvediloL 3.125 MG TABLET 6.25 MG PO ×2 (08:06→21:16)
--- NOTE | 2020-06-01 11:08 | MHC.CM.PN ---
PER ATTENDING/ NEPHROLOGY CONSULT PLAN FOR KIDNEY BIOPSY TODAY, NO PLAN FOR DISCHARGE AT THIS TIME. PLAN HOME SELF-CARE VS HOME W/[facility] SERVICES.
--- NOTE | 2020-06-01 13:18 | HO.RADPN ---
RADIOLOGY Narrative Narrative: Left lower pole renal core biopsy using coaxial system. 3 18 g core biopsies obtained. No complication.
[2020-06-01] MEDS: Lidocaine HCl 1 % MPF 5 ML VIAL 10 ML SUBCUT (13:34)
--- NOTE | 2020-06-01 14:35 | PM.PNNEP ---
Subjective Subjective Date of Service: 06/01/20 Interval history: seen and examined had kidney biopsy no complaints Physical Exam Vital Signs: Vital Signs: Last Vital Signs Temp 96.9 F 06/01/20 13:17 Pulse 69 06/01/20 13:17 Resp 20 06/01/20 13:17 BP 150/86 H 06/01/20 13:17 Pulse Ox 99 06/01/20 13:17 Body Mass Index 40.4 Const: General: no acute distress Orientation/consciousness: oriented to person, oriented to place and oriented to time HENMT: Head: Yes normocephalic and Yes atraumatic Neck: Neck: Yes supple Resp: Auscultation: diminished lung sounds Cardio: Heart sounds: S1 normal heart sound present and S2 normal heart sound present GI: Palpation (GI): Soft to palpation and nontender Neuro: General: oriented to person, oriented to place and oriented to time Extrem: General: Yes edema Objective Data Labs CBC & Chem 7: 05/30/20 13:35 06/01/20 06:20 Labs: Laboratory Results - last 24 hr 06/01/20 06:20 Sodium 134 L Potassium 5.2 H D Chloride 100 Carbon Dioxide 19 L Anion Gap 20 BUN 89 H* Creatinine 6.11 H* Estim Creat Clear Calc 16.8 Estimated GFR 9 Random Glucose 149 H Calcium 7.7 L C-Reactive Protein 18.65 H Assessment & Plan Assessment and plan (1) KEVIN (acute kidney injury): Status: Acute (2) CKD (chronic kidney disease) stage 4, GFR 15-29 ml/min: Status: Acute (3) Metabolic acidosis: Status: Acute Assessment and Plan: s/p kidney biopsy worsening kidney function complement level and serum immunofixation previous admission normal KEVIN superimposed on advanced CKD unclear etiology cannot exclude progressive hypertensive and diabetic kidney disease followed by Dr Green known severe CKD serum creatinine ~ 3 mg/dl recently REC expect preliminary kideuy biopsy report next week dose medication for eGFR < 15 ml/min sodium bicarbonate protect non dominant arm no indication for dialysis follow kidney function and electrolytes Time Spent With Patient Time: Total time spent is greater than 50% in coordination of care (as documented) at patient's floor/unit and/or counseling patient:
--- NOTE | 2020-06-01 16:50 | CONS_ITS ---
DATE OF SERVICE: 05/31/2020 HISTORY OF PRESENT ILLNESS: I was asked to assist in the management of this 64-year-old patient, who was recently admitted to [facility] with cellulitis of his left arm and discharged, who comes back because of foot pain, leg edema, and worsening kidney function. The patient was seen during his last admission and was not agreeable with kidney biopsy at that time. He denies any chest pain or shortness of breath. He denies nausea, vomiting, or diarrhea. He reports significant swelling in his foot over the last few days. PAST MEDICAL HISTORY: Remarkable for chronic kidney disease stage 4, diabetes mellitus, hypertension, gout, dyslipidemia, history of syncopal episode, and aneurysm. MEDICATIONS: As an outpatient reviewed and he is not on any medications. SOCIAL HISTORY: He does not smoke. FAMILY HISTORY: Negative for kidney disease. REVIEW OF SYSTEMS: REVIEW OF SYSTEMS: 10-point review of systems negative except pertinent in the history of present illness. PHYSICAL EXAMINATION: VITAL SIGNS: Blood pressure is 144/81, heart rate 75, respiratory rate 18, and temperature 97. CONSTITUTIONAL: Looks his age, in no acute distress. NEUROLOGIC: Alert and awake. HEENT: Head, atraumatic and normocephalic. Eyes, pupils are equal and reactive to light. Anicteric sclerae. NECK: Supple. LUNGS: Good entry bilaterally. CARDIOVASCULAR: S1 and S2. No rub. ABDOMEN: Soft, obese, and nontender. EXTREMITIES: With peripheral edema. LABORATORY DATA: Labs showed a white count of 12.9, hemoglobin is 10.6, and platelet count of 245. Sodium 134, potassium 4.3, chloride 100, CO2 of 19, BUN 79, and creatinine 6.36. Urine with 2+ protein. IMPRESSION: 1. Acute kidney injury. 2. Chronic kidney disease, stage 4. This is a patient with worsening kidney function, who recently had a workup, which showed normal complement level and serum immunofixation. His kidney function has been worsening over the course of the last few months and I cannot exclude progressive hypertensive diabetic kidney disease. As mentioned earlier, not agree with kidney biopsy, but tells me that he is willing to have a biopsy. He has been followed by Dr. Green. He has known severe chronic kidney disease with a serum creatinine of 3 mg/dL recently. My recommendations will be; 1. Kidney biopsy. 2. Sodium bicarbonate. 3. Protect nondominant arm. 4. No indication for dialysis. 5. Follow kidney function and electrolytes. Thank you for allowing me to participate in the care of this patient. Katherine Vila MD GF/MODL / [phone]
--- NOTE | 2020-06-01 17:33 | P.PNIM_ITS ---
Subjective Subjective Date of Service: 06/01/20 Interval History: Patient being followed for acute on chronic kidney disease, bilateral leg edema and pain and left forearm cellulitis, patient feels better in regard to bilateral foot pain but continued to have edema and swelling of left forearm, denies fever chills, is NPO for kidney biopsy. Review of Systems General no headache, no dizziness, no fever chills. CVS no chest pain, no palpitation. Respiratory no cough, no sputum production, no respiratory distress. Gastrointestinal no nausea,no vomiting, no abdominal pain, no diarrhea Physical Exam Vital Signs: Vital Signs: Last Vital Signs Temp 97.0 F 06/01/20 14:30 Pulse 73 06/01/20 14:30 Resp 16 06/01/20 14:30 BP 140/70 H 06/01/20 14:30 Pulse Ox 99 06/01/20 14:30 Body Mass Index 40.4 General patient resting, no acute distress. Neck is supple no JVD. CVS regular rate rhythm, Respiratory lungs clear to auscultation, no respiratory distress, no wheeze, no rhonchi. Gastrointestinal abdomen soft, nontender, bowel sounds audible. Extremities bilateral ankle/foot edema , mild persistent redness dorsum of both feet but improving, no tenderness or swelling of both big toes, normal examination of both ankles and knees. Neuro nonfocal Psych normal insight Skin no rash Objective Data Current Medications Generic Name Dose Route Start Last Admin Trade Name Freq PRN Reason Stop Dose Admin Acetaminophen 650 mg 05/30/20 16:15 Acetaminophen 325 Mg Tablet PO Q6H PRN Pain, Mild (Pain Scale 1-3) Amlodipine Besylate 5 mg 05/31/20 09:00 06/01/20 08:05 Amlodipine Besylate 5 Mg Tablet PO 5 mg DAILY LEONARDO Administration Protocol Calcitriol 0.25 mcg 05/31/20 09:00 05/31/20 08:02 Calcitriol 0.25 Mcg Capsule PO 0.25 mcg [id number] LEONARDO Administration Carvedilol 6.25 mg 05/31/20 21:00 06/01/20 08:06 Carvedilol 3.125 Mg Tablet PO 6.25 mg BID LEONARDO Administration Protocol Cephalexin HCl 500 mg 05/30/20 16:45 06/01/20 16:55 Cephalexin 500 Mg Capsule PO 500 mg Q12H LEONARDO Administration Docusate Sodium 100 mg 05/31/20 00:05 Docusate Sodium 100 Mg Capsule PO DAILY PRN Constipation Doxycycline Hyclate 100 mg 05/30/20 16:45 06/01/20 16:55 Doxycycline Hyclate 100 Mg Tablet PO 100 mg Q12H LEONARDO Administration Ondansetron HCl 4 mg 05/31/20 00:05 Ondansetron Hcl 4 Mg/2 Ml Vial IVPUSH Q8H PRN Nausea and Vomiting Pharmacy Consult 1 each 05/30/20 15:42 Consult Rx Perform Med Rec MISCELLANE ONCE PRN Consult order Pravastatin Sodium 80 mg 05/31/20 09:00 06/01/20 08:05 Pravastatin Sodium 80 Mg Tablet PO 80 mg DAILY LEONARDO Administration Prednisone 40 mg 05/30/20 16:15 06/01/20 08:05 Prednisone 20 Mg Tablet PO 40 mg DAILY LEONARDO Administration Sodium Bicarbonate 1,950 mg 05/30/20 21:00 06/01/20 08:05 Sodium Bicarbonate 650 Mg Tablet PO 1,950 mg BID LEONARDO Administration Sodium Chloride 3 ml 05/31/20 00:05 06/01/20 16:57 0.9 % Sodium Chloride Flush 3 Ml Syringe IVFLUSH 3 ml QSHIFT LEONARDO Administration Labs CBC & Chem 7: 05/30/20 13:35 06/01/20 06:20 Assessment and Plan (1) Metabolic acidosis: Status: Acute (2) Gout: Status: Acute (3) Metabolic acidosis: Status: Acute (4) Cellulitis: Status: Acute (5) Acute kidney injury superimposed on chronic kidney disease: Status: Acute Assessment and Plan: 64-year-old male with a history of CKD, diabetes, hypertension, dyslipidemia, gout, recent admission for left arm cellulitis who presents with foot pain and increasing lower extremity edema found to have worsening renal function KEVIN on CKD4 Noted to have Worsening renal function since last admission, creatinine is gradually trending down but remains significantly elevated around 6 Patient scheduled for renal biopsy today, question KEVIN due to longstanding hypertension and diabetes, will follow BMP closely avoid nephrotoxic medication and give all medication renally dose. Persistent edema will discuss use of diuretics with Nephrology. Metabolic acidosis continue soda bicarb Elevated uric acid with concern for Polyarticular gout flare, patient does not have typical symptoms of gouty flare with no significant erythema or tenderness to palpation or swelling at typical joints, patient has chronically elevated uric acid level, and give history of recurrent gouty flare at same location dorsum of both feet at metacarpal area currently on oral prednisone with less pain and swelling,CRP 18.65 will treat as gout and taper steroid or course of 7- 10 days. left arm cellullitis dx on last admission, redness and swelling has significantly improved will continue keflex, and doxy recommend to keep arm elevated h/o Diabetes hasn't taken meds in years since significant weight loss Hba1c 6.7 elevated blood sugars likely due to steroid continue insulin sliding scale HTN BP noted to be elevated on Norvasc 5 mg, and carvedilol 3.125, increased dose of Coreg to 6.25 mg bid BP remains on higher side will discuss antihypertensive medications with Nephrology HLD Continue statin DVT prophylaxis-on compression stocking will resume heparin after renal biopsy Code status-full code
[2020-06-02] MEDS: cephALEXin 500 MG CAPSULE PO (03:05)
[2020-06-02 05:54] VITALS: BP 143/78; PULSE 67; RESP 18; TEMP 35.9; O2SAT 96
[2020-06-02 07:31] LABS: Anion Gap 17 (12-20); Blood Urea Nitrogen 97 mg/dL (9-16); Calcium 7.6 mg/dL (8.4-10.2); Carbon Dioxide 21 mmol/L (22-29); Chloride 99 mmol/L (96-108); Creatinine Clr Calc Pharmacy 18.4; Estimated Glomerular Filt Rate 10; Glucose Random 139 mg/dL (60-115); Potassium 4.4 mmol/l (3.3-5.1); Sodium 133 mmol/L (135-145)
[2020-06-02 08:08] VITALS: BP 153/83; PULSE 66; RESP 19; TEMP 36; O2SAT 99
--- NOTE | 2020-06-02 11:04 | PM.PNNEP ---
Subjective Subjective Date of Service: 06/02/20 Interval history: seen and examined complains of nausea denies chest pain, SOB Physical Exam Vital Signs: Vital Signs: Last Vital Signs Temp 96.8 F 06/02/20 08:08 Pulse 66 06/02/20 08:08 Resp 19 06/02/20 08:08 BP 153/83 H 06/02/20 08:08 Pulse Ox 99 06/02/20 08:08 Body Mass Index 40.4 Const: General: no acute distress HENMT: Head: Yes normocephalic and Yes atraumatic Neck: Neck: Yes supple Resp: Auscultation: clear to auscultation bilaterally Cardio: Heart sounds: S1 normal heart sound present and S2 normal heart sound present GI: Palpation (GI): Soft to palpation and nontender Extrem: General: Yes edema Objective Data Labs CBC & Chem 7: 05/30/20 13:35 06/02/20 06:20 Labs: Laboratory Results - last 24 hr 06/02/20 06:20 Sodium 133 L Potassium 4.4 Chloride 99 Carbon Dioxide 21 L Anion Gap 17 BUN 97 H* Creatinine 5.59 H* Estim Creat Clear Calc 18.4 Estimated GFR 10 Random Glucose 139 H Calcium 7.6 L Assessment & Plan Assessment and plan (1) KEVIN (acute kidney injury): Status: Acute (2) CKD (chronic kidney disease) stage 4, GFR 15-29 ml/min: Status: Acute (3) Metabolic acidosis: Status: Acute Assessment and Plan: kidney function overall stable s/p kidney biopsy complement level and serum immunofixation previous admission normal KEVIN superimposed on advanced CKD unclear etiology cannot exclude progressive hypertensive and diabetic kidney disease followed by Dr Green known severe CKD baseline serum creatinine ~ 3 mg/dl REC expect preliminary kidney biopsy report next week dose medication for eGFR < 15 ml/min continue sodium bicarbonate protect non dominant arm no indication for dialysis follow kidney function and electrolytes outpatient follow up with Dr Green Time Spent With Patient Time: Total time spent is greater than 50% in coordination of care (as documented) at patient's floor/unit and/or counseling patient:
[2020-06-02] MEDS: 0.9 % Sodium Chloride Flush 3 ML SYRINGE IVFLUSH (11:10)
[2020-06-02] MEDS: Pravastatin Sodium 80 MG TABLET PO (11:11)
[2020-06-02] MEDS: Sodium Bicarbonate 650 MG TABLET 1950 MG PO (11:11)
[2020-06-02] MEDS: carvediloL 3.125 MG TABLET 6.25 MG PO (11:11)
[2020-06-02] MEDS: predniSONE 20 MG TABLET 40 MG PO (11:11)
[2020-06-02] MEDS: amLODIPine Besylate 5 MG TABLET PO (11:11)
[2020-06-02] MEDS: calcitrioL 0.25 MCG CAPSULE PO (11:14)
[2020-06-02 11:48] VITALS: BP 148/87; PULSE 74; RESP 20; TEMP 36.6; O2SAT 96
[2020-06-02] MEDS: Furosemide 40 MG/4 ML SOLUTION PO (14:03)
--- NOTE | 2020-06-02 14:10 | PM.DS ---
DS: Providers Provider Date of admission: 05/30/20 16:15 Primary care physician: Unknown Physician Consults: 05/30/20 16:15 Consult to Nephrology Routine Consulting Provider: Fransico Green Reason for consultation: Worsening renal failure, increasing leg edema Has provider been notified: No DS: Diagnosis Discharge Diagnosis (1) KEVIN (acute kidney injury): Status: Acute (2) CKD (chronic kidney disease) stage 4, GFR 15-29 ml/min: Status: Acute (3) Metabolic acidosis: Status: Acute DS: Medications Discharge Medications Home Medications: Home Medications Medication Instructions Recorded Confirmed azelastine 1 spray INTRANASAL BID PRN 05/24/20 05/30/20 calcitriol 0.25 mcg PO 3XW 05/24/20 05/30/20 pravastatin 80 mg PO DAILY 05/24/20 05/30/20 sodium bicarbonate 1,950 mg PO BID 05/24/20 05/30/20 Previous Rx's Medication Instructions Recorded amlodipine 10 mg PO DAILY #30 tab 06/02/20 carvedilol 6.25 mg PO BID #60 tab 06/02/20 furosemide [Lasix] 40 mg PO DAILY #30 tab 06/02/20 prednisone 10 mg PO DAILY #24 tab 06/02/20 DS: Summary Hospital Course Hospital Course: History of presenting illness Chief Complaint: Foot pain, leg edema This is a 64-year-old male with CKD, recent admission for left arm cellulitis who presents to the emergency department with leg pain. He was admitted and treated with doxycycline and Keflex and discharged on 05/27. During that admission he was also noted to have progression of his chronic kidney disease. He was evaluated by the security system administrator who did not feel that dialysis is indicated at that time. He reports significant swelling in his feet over the past few days as well as pain and difficulty ambulating. Lab work showed further progression of kidney disease with a creatinine of 6.63. Nephrology was contacted by the emergency room provider who felt the patient should be admitted for possible initiation of dialysis. Hospital course 64-year-old male with a history of CKD, diabetes, hypertension, dyslipidemia, gout, recent admission for left arm cellulitis who presents with foot pain and increasing lower extremity edema found to have worsening renal function KEVIN on CKD 4 Noted to have significant Worsening renal function in last few months creatinine bumped from 3-6 underwent renal biopsy, report is pending, kidney function remains stable patient is being discharged home to have close outpatient follow-up with Dr. Green and to obtain a renal biopsy , recent workup showed normal complement and serum immunofixation likely worsening renal disease due to progressive hypertensive and diabetic kidney disease , all medications renally dosed, patient is being discharged on Lasix 40 mg daily and blood pressure medications adjusted for better blood pressure control Metabolic acidosis continue soda bicarb and outpatient follow-up with Nephrology Elevated uric acid with concern for Polyarticular gout flare, patient does not have typical symptoms of gouty flare with no significant erythema or tenderness to palpation or swelling at typical joints, patient has chronically elevated uric acid level, and give history of recurrent gouty flare at same location dorsum of both feet at metacarpal area currently on oral prednisone with less pain and swelling,CRP 18.65 will treat as gout and taper steroid for total 2 weeks. left arm cellullitis dx on last admission, redness and swelling has significantly improved no further outpatient antibiotics recommended, advised to keep left arm elevated. h/o Diabetes hasn't taken meds in years since significant weight loss Hba1c 6.7 elevated blood sugars likely due to steroid recommend diabetic diet and outpatient follow up. HTN BP noted to be elevated on Norvasc 5 mg, and carvedilol 3.125, increased dose of Coreg to 6.25 mg bid and Norvasc increased to 10 mg daily, Lasix 40 mg added, recommend close outpatient follow-up with PCP and Nephrology. HLD Continue statin Time Spent with Patient Time attestation: Total time spent providing and/or coordinating discharge services: Physical Exam Vital Signs: Vital Signs: Last Vital Signs Temp 98 F 06/02/20 11:48 Pulse 74 06/02/20 11:48 Resp 20 06/02/20 11:48 BP 148/87 H 06/02/20 11:48 Pulse Ox 96 06/02/20 11:48 Body Mass Index 40.4 General patient resting, no acute distress. Neck is supple no JVD. CVS regular rate rhythm, Respiratory lungs clear to auscultation, no respiratory distress, no wheeze, no rhonchi. Gastrointestinal abdomen soft, nontender, bowel sounds audible. Extremities bilateral ankle/foot edema , redness dorsum of both feet improved, no tenderness or swelling of both big toes, normal examination of both ankles and knees. Neuro nonfocal Psych normal insight Skin no rash DS: Data Data Completed and Pending Pending studies at discharge: Pending at discharge 06/01/20 13:05 Surgical [PTH] Routine Labs on day of discharge: 05/30/20 12:13 ECG 12 lead EKG Stat EKG Documentation DIRECTED 05/30/20 13:35 B Type Natriuretic Peptide Stat Complete Blood Count Auto Diff Stat Comprehensive Met. Panel Stat Hemoglobin A1c Stat Partial Thromboplastin Time Stat Prothrombin Time INR Stat SLIDE REVIEW Stat 05/30/20 16:07 Transfer Order Routine 05/30/20 16:15 Heparin Sodium,Porcine 5,000 unit SUBCUT Q12H 05/30/20 16:30 Insulin Lispro [Humalog] See Protocol SUBCUT QIDACHS 05/30/20 16:37 Add Laboratory Test Stat 05/30/20 16:43 COVID-19 ID NOW ([facility]) Stat 05/30/20 17:20 oxyCODONE HCl Immed Release [Roxicodone] 5 mg PO ONCE ONE 05/30/20 Dinner Regular Diet 05/30/20 21:00 carvediloL [Coreg] 3.125 mg PO BID 05/30/20 21:56 Drug Screen Urine Stat 05/31/20 05:13 Basic Metabolic Panel DAILY@0600 05/31/20 07:47 Glucose, Whole Blood Routine 05/31/20 09:00 amLODIPine Besylate [Norvasc] 5 mg PO DAILY 05/31/20 Lunch Diabetic Diet 05/31/20 Dinner NPO Diet 06/01/20 CT biopsy renal LT Routine 06/01/20 06:20 Basic Metabolic Panel Routine C Reactive Protein Routine 06/01/20 12:18 Midazolam HCl/PF [Versed] 2 mg .ROUTE .STK-MED ONE fentaNYL citrate/PF [Sublimaze] 50 mcg .ROUTE .STK-MED ONE 06/01/20 12:21 Lidocaine HCl 1 % MPF [Xylocaine 1 % MPF] 5 ml .ROUTE .STK-MED ONE 06/01/20 13:17 Vital Signs Q30M 06/01/20 13:33 Lidocaine HCl 1 % MPF [Xylocaine 1 % MPF] 10 ml SUBCUT ONCE ONE 06/02/20 06:20 Basic Metabolic Panel Routine Laboratory Last Values WBC 12.9 X10*3/uL (4.8-10.8) H 12/27/20 13:35 RBC 3.73 X10*6/uL (4.60-5.80) L 05/30/20 13:35 Hgb 10.6 g/dl (14.0-18.0) L 05/30/20 13:35 Hct 32.7 % (42-52) L 05/30/20 13:35 MCV 87.7 fL (80-98) 05/30/20 13:35 MCH 28.4 pg (27.0-33.0) 05/30/20 13:35 MCHC 32.4 g/dl (31.0-36.0) 05/30/20 13:35 RDW 12.8 % (11.0-16.0) 05/30/20 13:35 Plt Count 245 X10*3/uL (160-400) 05/30/20 13:35 MPV 9.9 fL (9.4-12.4) 05/30/20 13:35 Immature Gran % (Auto) 2.7 % (0.0-0.4) H 05/30/20 13:35 Neut % (Auto) 83.7 % (45-73) H 05/30/20 13:35 Lymph % (Auto) 4.6 % (20-40) L 05/30/20 13:35 [place] % (Auto) 7.6 % (2-11) 05/30/20 13:35 Eos % (Auto) 1.2 % (0-4) 05/30/20 13:35 Baso % (Auto) 0.2 % (0-2) 05/30/20 13:35 Lymph # (Auto) 0.6 X10*3/uL (1.2-4.9) L 05/30/20 13:35 [place] # (Auto) 1.0 X10*3/uL (0.1-1.2) 05/30/20 13:35 Eos # (Auto) 0.2 X10*3/uL (0.0-0.4) 05/30/20 13:35 Baso # (Auto) 0.0 X10*3/uL (0.0-0.2) 05/30/20 13:35 Abs Immat Gran (auto) 0.35 X10*3/uL (0.00-0.03) H 05/30/20 13:35 Absolute Neuts (auto) 10.8 X10*3/uL (2.0-8.3) H 05/30/20 13:35 Absolute Nucleated RBC 0.000 X10*3/uL (0.0-0.012) 05/30/20 13:35 Nucleated RBC % (auto) 0.0 /100WBC (0.0-0.2) 05/30/20 13:35 Smear Tech's Comments VERIFIED 05/30/20 13:35 PT 15.6 SEC (10.8-13.0) H D 05/30/20 13:35 INR 1.3 (0.9-1.1) H 05/30/20 13:35 APTT 34.1 SEC (24.1-38.0) D 05/30/20 13:35 Sodium 133 mmol/L (135-145) L 06/02/20 06:20 Potassium 4.4 mmol/l (3.3-5.1) 06/02/20 06:20 Chloride 99 mmol/L (96-108) 06/02/20 06:20 Carbon Dioxide 21 mmol/L (22-29) L 06/02/20 06:20 Anion Gap 17 (-20) 06/02/20 06:20 BUN 97 mg/dL (9-16) H* 06/02/20 06:20 Creatinine 5.59 mg/dL (0.5-1.4) H* 06/02/20 06:20 Estim Creat Clear Calc 18.4 06/02/20 06:20 Estimated GFR 10 06/02/20 06:20 POC Glucose 177 mg/dL (60-115) H 05/31/20 07:47 Random Glucose 139 mg/dL (60-115) H 06/02/20 06:20 Estimat Average Glucose 146 mg/dL 05/30/20 13:35 Hemoglobin A1c % 6.7 % 05/30/20 13:35 Calcium 7.6 mg/dL (8.4-10.2) L 06/02/20 06:20 Total Bilirubin 0.3 mg/dL (0.0-1.0) 05/30/20 13:35 AST 23 U/L (5-37) 05/30/20 13:35 ALT 29 U/L (0-40) 05/30/20 13:35 Alkaline Phosphatase 79 U/L (39-117) 05/30/20 13:35 C-Reactive Protein 18.65 mg/dL (< or = 0.50) H 06/01/20 06:20 B-Natriuretic Peptide 91 pg/mL (<100) 05/30/20 13:35 Total Protein 5.0 g/dL (6.5-8.0) L 05/30/20 13:35 Albumin 2.2 g/dL (3.5-5.0) L 05/30/20 13:35 Urine Color YELLOW 05/30/20 21:56 Urine Appearance HAZY 05/30/20 21:56 Urine pH 6.0 (5.0-8.0) 05/30/20 21:56 Ur Specific [place] 1.020 (1.005-1.025) 05/30/20 21:56 Urine Protein 2+ MG/DL (NEG-TRACE) H 05/30/20 21:56 Urine Glucose (UA) 100 MG/DL (NEG) H 05/30/20 21:56 Urine Ketones NEG MG/DL (NEG) 05/30/20 21:56 Urine Blood 2+ (NEG) H 05/30/20 21:56 Urine Nitrite NEG (NEG) 05/30/20 21:56 Ur Leukocyte Esterase NEG (NEG) 05/30/20 21:56 Urine RBC 5-9 /HPF (0) H 05/30/20 21:56 Urine WBC 1-4 /HPF (0-4) 05/30/20 21:56 Ur Squamous Epith Cells 1+ /LPF 05/30/20 21:56 Urine Bacteria 1+ /LPF 05/30/20 21:56 Hyaline Casts 1-4 /LPF 05/30/20 21:56 Urine Mucus 1+ /LPF 05/30/20 21:56 Urine Opiates Screen Not Detected (Not Detect) 05/30/20 21:56 Ur Barbiturates Screen Not Detected (Not Detect) 05/30/20 21:56 Ur Phencyclidine Scrn Not Detected (Not Detect) 05/30/20 21:56 Ur Amphetamines Screen Not Detected (Not Detect) 05/30/20 21:56 U Benzodiazepines Scrn Not Detected (Not Detect) 05/30/20 21:56 Urine Cocaine Screen Not Detected (Not Detect) 05/30/20 21:56 U Marijuana (THC) Screen Not Detected (Not Detect) 05/30/20 21:56 COVID-19 (DEE DEE) Negative (Negative) 05/30/20 16:43 COVID-19 Clin Com See Note 05/30/20 16:43 Discharge Plan Discharge Patient Disposition: Home, Self-Care Referrals: Sameer English MD [Physician] - 1 Week (Please call and schedule a follow up appointment within 1 week.) Discharge Medications: New amlodipine 5 mg Tablet 10 mg PO DAILY Qty: 30 RF: 0 carvedilol 3.125 mg Tablet 6.25 mg PO BID Qty: 60 RF: 0 prednisone 10 mg tablet 10 mg PO DAILY Qty: 24 RF: 0 furosemide [Lasix] 40 mg tablet 40 mg PO DAILY Qty: 30 RF: 0 Continued pravastatin 80 mg tablet 80 mg PO DAILY RF: 0 sodium bicarbonate 650 mg tablet 1,950 mg PO BID RF: 0 calcitriol 0.25 mcg capsule 0.25 mcg PO 3XW RF: 0 azelastine 0.15 % (205.5 mcg) spray,non-aerosol 1 spray intranasal BID PRN (Reason: allergies) RF: 0 Discontinued prednisone 20 mg tablet 1 tab PO DAILY PRN (Reason: Inflammation) RF: 0 amlodipine 5 mg tablet 5 mg PO DAILY RF: 0 carvedilol 3.125 mg tablet 3.125 mg PO BID RF: 0 Discharge Orders: Discharge Order (Routine); Ordered 06/02/20 Ordered By: Duke Vila Diet: low fat, low cholesterol Activity on Discharge: As tolerated Visit Report Forms: Patient Portal Discharge page Care Plan Goals: Take prednisone tapering dose as ordered Health Concerns: Keep left fore arm elevated, call PCP/Dr. Green with any lightheadedness dizziness. Plan of Treatment: Outpatient follow-up with Dr. Green in 1 week
--- NOTE | 2020-06-02 14:31 | MHC.CM.PN ---
PT DISCHARGING HOME SELF-CARE, PT HAS TRANSPORTATION
== END 2020-06-02 15:34 | disposition home or self-care (01) | DRG 469 ==
LOC: HO.ED 20:21 → HO.IMC 22:27 → HO.S3 05-31 14:00
PROVIDERS: Nurse Practitioner Primary Care; Physician Assistant Medical; Admitting Provider Internal Medicine; Emergency Provider Emergency Medicine Emergency Medical Services; Visit Provider Hospitalist
DX: N17.9 Acute kidney failure, unspecified (principal); E87.2 Acidosis; E11.22 Type 2 diabetes mellitus with diabetic chronic kidney disease; L03.114 Cellulitis of left upper limb; E11.65 Type 2 diabetes mellitus with hyperglycemia; E78.5 Hyperlipidemia, unspecified; M10.9 Gout, unspecified; I12.9 Hypertensive chronic kidney disease with stage 1 through stage 4 chronic kidney disease, or unspecified chronic kidney disease; T38.0X5A Adverse effect of glucocorticoids and synthetic analogues, initial encounter; Y92.9 Unspecified place or not applicable; N18.4 Chronic kidney disease, stage 4 (severe); Z20.828 Contact with and (suspected) exposure to other viral communicable diseases; Z79.899 Other long term (current) drug therapy
CPT/HCPCS: 36415; 50200; 77012; 80048; 80053; 80307; 81001; 82947; 83036; 83880; 85025; 85610; 85730; 86140; 87635; 88300; 88305; 88313; 88346; 88348; 88350; 93005; 99152; 99153; 99225; 99285

== ENCOUNTER 2024-08-06 02:56 | Inpatient (IN) | payer MEDICARE, SELFPAY ==
[2024-08-06] VITALS (10 sets, daily range): BP systolic 165–230; BP diastolic 91–110; PULSE 77–110; RESP 14–26; TEMP 36.4–36.9; O2SAT 89–98; BMI 33.5
--- NOTE | ~2024-08-06 | XR_ITS ---
CLINICAL HISTORY: sob, dialysis pt, pulm edema? 1 view chest x-ray Comparison: None Findings: The lungs exhibit mild interstitial prominence. Trace left effusion possible. Cardiac and mediastinal contours are within expected limits. No acute osseous finding. IMPRESSION: Mild interstitial prominence. Trace left effusion. No overt edema. This document has been electronically signed by: Bull Lobo MD on 08/06/2024 05:09:19
--- NOTE | 2024-08-06 03:05 | ECG_ITS ---
Test Reason : DYSPNEA Blood Pressure : */* mmHG Vent. Rate : 104 BPM Atrial Rate : 105 BPM P-R Int : * ms QRS Dur : 148 ms QT Int : 402 ms P-R-T Axes : * -20 93 degrees QTcB Int : 528 ms Sinus tachycardia with Ventricular-paced rhythm Abnormal ECG When compared with ECG of 30-May-2020 12:28, Electronic ventricular pacemaker is now Present Referred By: Generic ED Physician Electronically Signed By: ANTONI HEWITT MD
[2024-08-06] MEDS: Furosemide 100 MG/10 ML VIAL 80 MG IVPUSH (03:18)
[2024-08-06 03:37] LABS: Venous Blood Gas Refer to POC result
[2024-08-06 03:39] LABS: MANUAL DIFF FLAG NO
--- NOTE | 2024-08-06 03:39 | ED.GENADULT ---
HPI - General Adult General Chief complaint: General Medical Stated complaint: SOB HTN dilysis Pt didn't finish dilysis,IV,Nitro Time Seen by Provider: 08/06/24 03:05 Source: patient and EMS Mode of arrival: EMS Limitations: other (Shortness of breath) History of Present Illness ED Provider: Dr. Ai Figueroa HPI narrative: Patient comes to the emergency room complaining of shortness of breath. Patient states that he usually gets dialysis Sunday. However, on Sunday, EMS states that the patient's fistula infiltrated and they were unable to finish dialysis. Patient states that he has not chest pain but he is very short per EMS, they gave him nitro paste, aspirin 324 mg and started on CPAP. Related Data Home Medications ?Medication ?Instructions ?Recorded ?Confirmed azelastine 205.5 mcg (0.15 %) 1 spray intranasal BID PRN 05/24/20 05/30/20 nasal spray allergies calcitriol 0.25 mcg capsule 0.25 mcg PO 3XW 05/24/20 05/30/20 pravastatin 80 mg tablet 80 mg PO DAILY 05/24/20 05/30/20 sodium bicarbonate 650 mg tablet 1,950 mg PO BID 05/24/20 05/30/20 Previous Rx's ?Medication ?Instructions ?Recorded amlodipine 5 mg tablet 10 mg PO DAILY #30 tabs 06/02/20 carvedilol 3.125 mg tablet 6.25 mg PO BID #60 tabs 06/02/20 furosemide 40 mg tablet (Lasix) 40 mg PO DAILY #30 tabs 06/02/20 prednisone 10 mg tablet 10 mg PO DAILY #24 tabs 06/02/20 Allergies Allergy/AdvReac Type Severity Reaction Status Date / Time No Known Allergies Allergy Verified 08/06/24 03:08 [No Known Allergies*] Review of Systems Review of Systems: Constitutional : No Weight loss, No Fever, No Chills, No Night Sweats, No Fatigue, No Malaise ENT/Mouth : No Hearing loss, No Ear Pain, No Nasal Congestion, No Sinus Pain, No Hoarseness, No sore throat, No Rhinorrhea, No Swallowing Difficulty Eyes: No Eye Pain, No Swelling, No Redness, No Foreign Body, No Discharge, No Vision Changes Cardiovascular : Denies chest pain or palpitation, complaining of lower extremity edema Respiratory : Complaining of cough and shortness of breath Gastrointestinal : No Nausea, No Vomiting, No Diarrhea, No Constipation, No abdominal Pain, No Hematochezia, No Melena Genitourinary : no irregular bleeding, No Dysuria, No Urinary Frequency, No Hematuria, No Urinary Incontinence, No Urgency, No Flank Pain, No Urinary Flow Changes, No Hesitancy Musculoskeletal : No joint pain, No Myalgias, No Joint Swelling Skin : No Skin Lesions, No rash Neuro : No Weakness, No Numbness, No Paresthesias, No Loss of Consciousness, No Dizziness, No Headache Psych : No Anxiety/Panic, No Depression, No SI/HI/AH/VH, No Social Issues, Heme/Lymph: No Bruising, No Bleeding,No Lymphadenopathy Endocrine : No Polyuria, No Polydipsia, No Temperature Intolerance [facility] Past Medical History Medical History CKD (chronic kidney disease) stage 4, GFR 15-29 ml/min Hyperlipidemia Aneurysm Diabetes mellitus Syncopal episodes Gout Renal failure Hypertension Surgical History S/P colonoscopic polypectomy Social History Social History Household Members: None Housing: House Do you presently have visiting nurse or other home services: No Alcohol intake: never Smoked in Last 30 Days: No Use of substances other than those prescribed or required for medical reasons: No Advance Directives: No Advance Directives Information Provided: Yes service: No Current occupational status: retired Physical Exam ED Vital Signs: Vital Signs - 24 hr 08/06/24 03:06 08/06/24 03:09 08/06/24 03:51 Temperature 97.5 F Pulse Rate 101 H 84 Respiratory Rate 24 H 26 H 15 Blood Pressure 193/99 H 178/94 H Pulse Oximetry 97 96 Oxygen Delivery Method BiPAP BiPAP 08/06/24 06:08 Temperature 97.7 F Pulse Rate 77 Respiratory Rate 16 Blood Pressure 165/91 H Pulse Oximetry 93 Oxygen Delivery Method Room Air BMI result Body Mass Index 33.5 Const Other: Appearance: Alert. Oriented X3. Respiratory distress. Eyes: Pupils equal, round and reactive to light. ENT: Pharynx normal. Neck: Normal inspection. Neck supple. No lymph nodes noted. No crepitus CVS: Normal heart rate and rhythm. Pulses normal. Normal S1 and S2 Respiratory: Patient's seems to have a difficult time breathing. Bilateral crackles, no wheezing Abdomen: Soft and nontender. No rigidity. No distention. Skin: Skin warm and dry. Normal skin color. Normal skin turgor. Extremities: +2 pitting edema bilaterally, No Lacerations. No Rash Neuro: Oriented X 3. No motor deficit. No sensory deficit. Moving all extremities. No slurred speech. CN 2 through 12 grossly intact Psych: calm, cooperative, normal affect Course Course Course Narrative: Initial blood pressure was 193/99 heart rate 101. Patient already received 1 in of nitro paste, 324 of aspirin per EMS. Patient is on never CPAP and patient was also given 80 mg of Lasix. Per patient, he still produces urine. Medications Administered Discontinued Medications Generic Name Dose Route Start Last Admin Trade Name Freq PRN Reason Stop Dose Admin Furosemide 80 mg 08/06/24 03:06 08/06/24 03:18 Furosemide 100 Mg/10 Ml Vial IVPUSH 08/06/24 03:07 80 mg ONCE ONE Administration Protocol Medical Decision Making Medical Decision Making [facility] Narrative: My interpretation of labs: Patient's hematology shows a hemoglobin that is slightly below baseline. Likely secondary to anemia of chronic disease.., venous blood gas shows normal pH, pCO2 46, bicarb 30, chemistry shows BUN 56, creatinine 7.63, BNP 1662. However, patient is on dialysis and we do not have labs within the last 5 years. Chest x-ray shows mild interstitial prominence, trace effusion no overt edema. Overall, patient will likely need dialysis, he is due today. Initially, patient was not CPAP, patient was weaned off and now is on room air saturating 93%. Initial patient blood pressure was in the 220s. Patient was given nitro patch, Lasix 80 mg IV. Blood pressure 165/91. Patient overall breathing much better. With the hospitalist team has been informed, accepted by Dr. Yi, they will consult Dr. Green for dialysis Differential Diagnosis Differential Diagnoses: The differential diagnosis associated with the presentation includes (CHF, pulmonary edema, fluid overload due to dialysis, pneumonia) Admission/Observation Consideration of admission/observation: Escalation of care including admission/observation considered Consult Healthcare Provider Management of the patient was discussed with: Hospitalist Lab Data [facility] Lab Attestation statement: I reviewed the patient's lab results. 08/06/24 03:30 08/06/24 03:30 Labs: Lab Results 08/06/24 08/06/24 Range/Units 03:30 03:36 WBC 9.8 (4.8-10.8) X10*3/uL RBC 2.64 L (4.60-5.80) X10*6/uL Hgb 8.1 L (14.0-18.0) g/dl Hct 24.8 L (42.0-52.0) % MCV 93.9 (80.0-98.0) fL MCH 30.7 (27.0-33.0) pg MCHC 32.7 (31.0-36.0) g/dl RDW 17.4 H (11.0-16.0) % Plt Count 226 (160-400) X10*3/uL MPV 9.7 (9.4-12.4) fL Immature Gran % (Auto) 0.3 (0.0-0.4) % Neut % (Auto) 81.7 H (45-73) % Lymph % (Auto) 9.8 L (20-40) % [place] % (Auto) 7.1 (2-11) % Eos % (Auto) 0.5 (0-4) % Baso % (Auto) 0.6 (0-2) % Lymph # (Auto) 1.0 L (1.2-4.9) X10*3/uL [place] # (Auto) 0.7 (0.1-1.2) X10*3/uL Eos # (Auto) 0.1 (0.0-0.4) X10*3/uL Baso # (Auto) 0.1 (0.0-0.2) X10*3/uL Abs Immat Gran (auto) 0.03 (0.00-0.03) X10*3/uL Absolute Neuts (auto) 8.0 (2.0-8.3) x10*3/uL Absolute Nucleated RBC 0.000 (0.0-0.012) X10*3/uL Nucleated RBC % (auto) 0.0 (0.0-0.2) /100WBC VBG pH 7.43 (7.32-7.43) VBG pCO2 46 mmHg VBG pO2 47 mmHg VBG HCO3 30 H (22-26) mmol/L VBG O2 Saturation Not Reportable VBG Base Excess 6.0 mmol/L Sodium 139 (135-145) mmol/L Potassium 4.6 (3.3-5.1) mmol/L Chloride 98 (96-108) mmol/L Carbon Dioxide 25 (22-29) mmol/L Anion Gap 21 H (12-20) BUN 56 H (9-16) mg/dL Creatinine 7.63 H* (0.5-1.4) mg/dL Estim Creat Clear Calc 11.4 Estimated GFR 7 Random Glucose 140 H (60-115) mg/dL Calcium 10.0 D (8.4-10.2) mg/dL Total Bilirubin 0.6 (0.0-1.0) mg/dL AST 20 (5-37) U/L ALT < 6 (0-40) U/L Alkaline Phosphatase 77 (39-117) U/L Troponin I High Sens 33.1 (<3.5-35.0) ng/L B-Natriuretic Peptide 1662 H (<100) pg/mL Total Protein 6.9 (6.5-8.0) g/dL Albumin 3.5 (3.5-5.0) g/dL Independent Interpretation I performed an independent interpretation of an: Plain X-Ray Radiology Impression Discussion of test interpretation with radiology: I have reviewed the radiologist's reading. Radiologist Impression: The lungs exhibit mild interstitial prominence. Trace left effusion possible. Cardiac and mediastinal contours are within expected limits. No acute osseous finding. IMPRESSION: Mild interstitial prominence. Trace left effusion. No overt edema. Critical Care Time Critical Care Time Critical Care Time: Yes Total Critical Care Time: 60 Attestation: I have personally provided critical care time. Time includes review of lab data, radiology results, discussion with consultants, and monitoring for potential decompensation. Intervention performed as documented. Discharge Plan Discharge Clinical Impression: Hypertensive urgency, Acute hypoxemic respiratory failure, Pulmonary edema Patient Disposition: Admitted As Inpatient Prescriptions: No Action pravastatin 80 mg tablet 80 mg PO DAILY sodium bicarbonate 650 mg tablet 1,950 mg PO BID calcitriol 0.25 mcg capsule 0.25 mcg PO 3XW azelastine 0.15 % (205.5 mcg) spray,non-aerosol 1 spray intranasal BID PRN (Reason: allergies) Rx Instructions: BOTH NOSTRILS amlodipine 5 mg Tablet 10 mg PO DAILY Qty: 30 0RF Protocol: Hold for SBP< HOLD for SBP < : 90 carvedilol 3.125 mg Tablet 6.25 mg PO BID Qty: 60 0RF Protocol: Hold for SBP/HR < HOLD for SBP < : 90 HOLD for HR < : 60 prednisone 10 mg tablet 10 mg PO DAILY Qty: 24 0RF Rx Instructions: take take prednisone 10 mg (3 tablets )daily for 4 days, then prednisone 10 mg (2 tablets)for 4 days, then prednisone 10 mg daily for 4 days furosemide [Lasix] 40 mg tablet 40 mg PO DAILY Qty: 30 0RF Print Language: Hebrew
[2024-08-06 03:41] LABS: VBG HCO3 30 mmol/L (22-26); VBG pCO2 46 mmHg; VBG pH 7.43 (7.32-7.43); VBG pO2 47 mmHg
[2024-08-06 03:41] LABS: Basophils Absolute Auto 0.1 X10*3/uL (0.0-0.2); Basophils Percent Auto 0.6 % (0-2); Eosinophils Absolute Auto 0.1 X10*3/uL (0.0-0.4); Eosinophils Percent Auto 0.5 % (0-4); Hematocrit 24.8 % (42.0-52.0); Hemoglobin 8.1 g/dl (14.0-18.0); Imm Gran Abs Auto 0.03 X10*3/uL (0.00-0.03); Imm Gran Pct Auto 0.3 % (0.0-0.4); Lymphocytes Percent Auto 9.8 % (20-40); Mean Corpuscular HGB Conc 32.7 g/dl (31.0-36.0); Mean Corpuscular Hemoglobin 30.7 pg (27.0-33.0); Mean Corpuscular Volume 93.9 fL (80.0-98.0); Mean Platelet Volume 9.7 fL (9.4-12.4); Monocytes Absolute Auto 0.7 X10*3/uL (0.1-1.2); Monocytes Percent Auto 7.1 % (2-11); Neutrophils Percent Auto 81.7 % (45-73); Platelet Count 226 X10*3/uL (160-400); Red Blood Count 2.64 X10*6/uL (4.60-5.80); Red Cell Distribution Width 17.4 % (11.0-16.0); White Blood Count 9.8 X10*3/uL (4.8-10.8)
--- NOTE | 2024-08-06 03:50 | PC.NURSE ---
20g IV R hand, 20g IV RAC
[2024-08-06 04:01] LABS: Troponin-I High Sensitivity 33.1 ng/L (<3.5-35.0)
[2024-08-06 04:03] LABS: B Type Natriuretic Peptide 1662 pg/mL (<100)
[2024-08-06 04:05] LABS: Alanine Aminotransferase < 6 U/L (0-40); Albumin Level 3.5 g/dL (3.5-5.0); Alkaline Phosphatase 77 U/L (39-117); Anion Gap 21 (12-20); Aspartate Amino Transferase 20 U/L (5-37); Bilirubin Total 0.6 mg/dL (0.0-1.0); Blood Urea Nitrogen 56 mg/dL (9-16); Carbon Dioxide 25 mmol/L (22-29); Chloride 98 mmol/L (96-108); Creatinine Clr Calc Pharmacy 11.4; Estimated Glomerular Filt Rate 7; Glucose Random 140 mg/dL (60-115); Potassium 4.6 mmol/L (3.3-5.1); Sodium 139 mmol/L (135-145); Total Protein 6.9 g/dL (6.5-8.0)
--- NOTE | 2024-08-06 05:38 | PM.IMHP ---
History of Present Illness Date of Service: 08/06/24 Attending physician on admission: Mike Mena Chief Complaint: SOB Patient is a 69-year-old male with a past medical history significant for end-stage renal disease on dialysis Sunday, anemia of chronic disease, history diabetes (no medications), HTN, who presented to the ED due to significant shortness of breath and hypoxia last night. The patient reports that he was measuring his O2 use at home in the 1 satting in the 80s. Usually when he is short of breath piece of separate it is helpful however this was not helping at all. He went for dialysis on Sunday but reports that he moved his arm and infiltrated the line in only completed about half a session of dialysis. He was also noted to have significant hypertension with systolic up to 220s. He was put on CPAP and ultimately BiPAP once in the ED with improvement, also given nitro patch and Lasix 80 mg IV. The patient reports that he produces very minimal urine. He denied any lower extremity edema, fever, chills, nausea, vomiting, headache or confusion. He reports he has had a chronic cough for the past few months after having pneumonia and the flu and just saw his rn hemodialysis this week. Review of Systems Constitutional: Constitutional: Denies chills and Denies fever(s) Eyes: Eyes: Denies change in vision and Denies photophobia ENT: Denies nasal congestion, Denies nasal discharge and Denies sore throat Cardiovascular: Cardiovascular: Denies chest pain, Denies rapid heart rate, Denies leg edema, Denies lightheadedness and Reports dyspnea Respiratory: Respiratory: Reports cough, Reports dyspnea and Denies wheezing Gastrointestinal: Gastrointestinal: Denies diarrhea, Denies nausea and Denies vomiting Genitourinary: Genitourinary: Denies dysuria, Denies urinary frequency and Denies urinary urgency Musculoskeletal: Musculoskeletal: Denies myalgias Integumentary/Breasts: Skin/Breast: Denies rash Neurologic: Denies confusion Psychiatric: Psychiatric: Denies confusion Endocrine: Endocrine: Denies flushing Hematologic/Lymphatic: Hematologic/Lymphatic: Denies easy bleeding and Denies easy bruising Allergic/Immunologic: Allergic/Immunologic: Denies wheezing PMFSH Medical History CKD (chronic kidney disease) stage 4, GFR 15-29 ml/min Hyperlipidemia Aneurysm Diabetes mellitus Syncopal episodes Gout Renal failure Hypertension Surgical History S/P colonoscopic polypectomy Social History Household Members: None Housing: House Do you presently have visiting nurse or other home services: No Alcohol intake: never service: No Current occupational status: retired Narrative: no smoking, etoh or drug use Meds Allergies Allergy/AdvReac Type Severity Reaction Status Date / Time No Known Allergies Allergy Verified 08/06/24 03:08 [No Known Allergies*] Active Medications: Current Medications Acetaminophen (Acetaminophen 325 Mg Tablet) 975 mg PO Q6H PRN PRN Reason: Pain, Mild 1-3,fever,headache Calcium Carbonate (Calcium Carbonate 750 Mg Tab.Chew) 750 mg PO Q4H PRN PRN Reason: Heartburn Magnesium Hydroxide (Milk Of Magnesia 30 Ml Oral.Susp) 30 ml PO DAILY PRN PRN Reason: Constipation Melatonin (Melatonin 3 Mg Tablet) 6 mg PO BEDTIME PRN PRN Reason: Insomnia Sodium Chloride (0.9 % Sodium Chloride Flush 3 Ml Syringe) 3 [facility] Home Medications ?Medication ?Instructions ?Recorded ?Confirmed ?Last Taken ?Type azelastine 205.5 mcg (0.15 %) 1 spray intranasal BID PRN 05/24/20 05/30/20 Unknown History nasal spray allergies calcitriol 0.25 mcg capsule 0.25 mcg PO 3XW 05/24/20 05/30/20 Unknown History pravastatin 80 mg tablet 80 mg PO DAILY 05/24/20 05/30/20 05/23/20 History sodium bicarbonate 650 mg tablet 1,950 mg PO BID 05/24/20 05/30/20 05/23/20 History Physical Exam Vital Signs and Narrative: Vital Signs: Last Vital Signs Temp 97.5 F 08/06/24 03:06 Pulse 84 08/06/24 03:51 Resp 15 08/06/24 03:51 BP 178/94 H 08/06/24 03:51 Pulse Ox 96 08/06/24 03:51 O2 Del Method BiPAP 08/06/24 03:51 BMI result Body Mass Index 33.5 General: AOx3, no acute distress, off BiPAP doing well Resp: rhonchi bilaterally, fine crackles lower lungs, no wheezing CVS: S1, S2, RRR GI: +BS, NT, no distention Skin: Warm, dry Neuro: Cranial nerves II-XII grossly intact bilaterally. Motor grossly intact bilaterally Extremities: No LE edema Psych: Appropriate affect Const: General: No confusion Orientation/consciousness: No confusion Eyes: Direct Ophthalmoscopy: No photophobia Neuro: General: No confusion Results Labs 08/06/24 03:30 08/06/24 03:30 Labs: Laboratory Results - last 24 hr 08/06/24 08/06/24 03:30 03:36 MCV 93.9 MCH 30.7 MCHC 32.7 RDW 17.4 H Plt Count 226 MPV 9.7 Immature Gran % (Auto) 0.3 Neut % (Auto) 81.7 H Lymph % (Auto) 9.8 L [place] % (Auto) 7.1 Eos % (Auto) 0.5 Baso % (Auto) 0.6 Lymph # (Auto) 1.0 L [place] # (Auto) 0.7 Eos # (Auto) 0.1 Baso # (Auto) 0.1 Abs Immat Gran (auto) 0.03 Absolute Neuts (auto) 8.0 Absolute Nucleated RBC 0.000 Nucleated RBC % (auto) 0.0 VBG pH 7.43 VBG pCO2 46 VBG pO2 47 VBG HCO3 30 H VBG O2 Saturation Not Reportable VBG Base Excess 6.0 Anion Gap 21 H Estim Creat Clear Calc 11.4 Estimated GFR 7 Random Glucose 140 H Calcium 10.0 D Total Bilirubin 0.6 AST 20 ALT < 6 Alkaline Phosphatase 77 B-Natriuretic Peptide 1662 H Total Protein 6.9 Albumin 3.5 Assessment and Plan (1) Acute hypoxic respiratory failure: Status: Acute (2) Hypertensive urgency: Status: Acute (3) ESRD (end stage renal disease): Status: Acute (4) Obesity (BMI 30.0-34.9): Status: Acute Plan Patient is a 69-year-old male with a past medical history significant for end-stage renal disease on dialysis Sunday, anemia of chronic disease, history diabetes (no medications), HTN, who presented to the ED due to significant shortness of breath and hypoxia last night. He last 1 for dialysis on Sunday and reports that he only had about half a session before his fistula infiltrated. Acute hypoxic respiratory failure secondary to fluid overload in the setting of end-stage renal disease - WBC 9.8, no infectious source, no sepsis - chest x-ray with trace left effusion, mild interstitial prominence, no edema - exam in ED with 2+ pitting edema which has resolved - BNP 1662 - EKG ventricular paced - given ASA 324mg and nitropatch by EMS and placed on CPAP - swtiched to BiPAP in ED with improvement, pt weaned to NC and satting at 96% - given Lasix 80 mg IV in the ED, patient produces minimal urine, no output yet - followed by Dr Green, nephro consult for dialysis - admit for dialysis - monitor CBC and BMP Hypertensive urgency - BP about 220 systolic reported by ED provider - improvement with nitropatch and lasix - continue home BP meds anemia of chronic disease - hgb 8.1, no need for blood transfusion at this time - monitor CBC hx DM - no current meds - monitor POC while here - add sliding scale if needed obesity - BMI 33.5 - weight loss encouraged Med rec not complete upon admission full code VTE prophy: pneumoboots due to anemia Pt with acute hypoxic respiratory failure secondary to fluid or overload in the setting of end-stage renal disease, requiring admission for observation for dialysis and monitoring. Quality Stroke Does the patient have a stroke diagnosis?: No VTE Prior VTE?: No VTE Risk Level:: Medical - moderate - high VTE Device Contraindication: N/A - Device Ordered VTE Drug Contraindication: Treatment Not Indicated
--- OUTSIDE RECORDS SUMMARY | 2024-08-06 06:06 | XMS_ITS | Patient Health Record ---
Demographics Address [address] [place] [address] Mobile Email Address Preferred Language en Marital Status unmarried Nondenominational Affiliation Unknown Race White Ethnic Group Not or Lati no Author Organization [facility] Address [address] [place] [address] Care Team Providers Care Manager Supply Chain Name Role Phone Sameer English MD Primary Care Provider Herminio Villanueva Unavailable [phone] Reason For Referral No Information Medications Medication SIG (Take, Route, Frequency, Duration) Notes Start Date End Date Status Gemfibrozil Active Allopurinol Active Diovan Active Colcrys 0.6 MG 1 tablet Orally Four times a day for 05 days 08/04/2014 Not-Taki ng Metformin & Diet Manage Prod 500 MG as directed Orally Not-Butch g Eucerin . as directed External ly bid to feet for 30 days 08/04/2014 Active Pravachol Active Extra-Depth Diabetic Shoes with 3 Pair Custom heat-molded multi-density innersoles . for 1 year . Dx: 250.00,735.4,701 for . 08/04/2014 Active Immunizations Vaccine Route Administration Date Status Comme nts Influenza Unknown 02/16/2016 Administered Social History Tobacco use other than smoking: Question Answer Notes Are you an other tobacco user? No Problems Problem Type SNOMED Code ICD Code Onset Dates Problem Status W/U Status Risk Notes Problem Type II diabetes mellitus without complication (413084344) Type 2 diabetes mellitus without complications (E11.9) Active confirmed Encounters Encounter Location Date Provider Diagnosis [facility] [address] [place] [address] 06/16/2024 Herminio Lo Plan Of Treatment Pending Test Test Name Order Date X ray : Foot, left 3V 07/18/2012 [id number] NAIL, 6 OR MORE 07/18/2012 [id number] NAIL, 6 OR MORE 08/04/2014 [id number] NAIL, 6 OR MORE 08/10/2016 [id number] Plate 08/10/2016 23243 I&D ABSCESS- SIMPLE,SINGLE 017 92788 I&D ABSCESS- SIMPLE,SINGLE 017 Next Appt Details Provider Name:Herminio Lo , 09/02/2024 09:30:00 AM, [address] [place], [address], Insurance Providers Payer Name Payer Address Payer Phone Subscriber Number Group Number Insured Name Patient Relationship to Insured Coverage Start Date Coverage End Date [employer] [place] [employer] [address] [place] [address] [phone] [id number] Von Lala Self - patient is the insured Medical (General) History Medical History History ICD Code diabetic Gout hepatitis high blood pressure cholesterol Back,Hip,and Knee pain covid-19 Kidney disease Nerve disorder Reflux ( GERD) Measles Mumps Chicken pox Surgical History Surgery Date(Month/Year) brain 1998
--- OUTSIDE RECORDS SUMMARY | 2024-08-06 06:06 | XMS_ITS ---
Demographics Address [address] [place] [address] Mobile Email Address m Preferred Language en Marital Status unmarried Jew Affiliation Unknown Race White Ethnic Group Not or Lati no Author Organization [facility] Address [address] [place] [address] Care Team Providers Care Graphic Illustrator Name Role Phone Sameer English MD Primary Care Provider Unava ilHerminio Davenport Unavailable [phone] REASON FOR VISIT [facility] Entered Encounters Encounter Location Date Provider Diagnosis [address] [address] 06/16/2024 Herminio Lo Plan Of Treatment Next Appt Details Provider Name:Herminio Lo , 09/02/2024 09:30:00 AM, [address] [place], [address], Progress Notes * Von WELLS GDOB: [birth year] (68 yo M)Acc No.[id number]:06/16/2024 Patient:?Von WELLS :1955???Age:68 Y???Sex:Male Address:[address] [place] [address] * true * Date:? Generated for Hermani ng/Fafroilang/eTransmitting on:?08/06/2024 06:06 AM EST
--- OUTSIDE RECORDS SUMMARY | 2024-08-06 06:07 | XMS_ITS | Clinical Summary ---
Author Organization [facility] Address [address] [address] Phone Care Team Providers Care Public Health Social Worker Name Role Phone Sameer English MD Primary Care Provider [phone] Allergies Active Allergy Reactions Criticality Noted Date Comments Lisinopril 08/30/2020 Medications allopurinol (ZYLOPRIM) 100 MG tablet Take 1 tablet by mouth 1 (one) time each day 1 Active amLODIPine (Norvasc) 5 MG tablet Comments: Filled Date: Jul 01 2020 11:42AM Patient Notes: TAKE 1 TABLET DAILY 1 Active Azelastine-Fluti casone (Dymista) 137-50 MCG/ACT suspension Active calcitriol (ROCALTROL) 0.25 MCG capsule Take 1 capsule by mouth 3 (three) times a week 0 Active pravastatin (PRAVACHOL) 80 MG tablet Take 1 tablet by mouth 1 (one) time each day Active predniSONE (DELTASONE) 20 MG tablet Take 1 tablet by mouth 1 (one) time each day Active sodium bicarbonate 650 MG tablet Take 1,950 mg by mouth 2 (two) times a day 9 Active aspirin (ST VON) 81 MG EC tablet Take 81 mg by mouth 1 (one) time each day Active atorvastatin (LIPITOR) 80 MG tablet Take 80 mg by mouth 1 (one) time each day Active hydrALAZINE (APRESOLINE) 10 MG tablet Take 10 mg by mouth 3 (three) times a day Active metoprolol tartrate (LOPRESSOR) 50 MG tablet Take 50 mg by mouth 2 (two) times a day Active azelastine (ASTELIN) 0.1 % nasal spray Administer 1 spray into each nostril 2 (two) times a day Use in each nostril as directed Active midodrine (PROAMATINE) 5 MG tablet Take 5 mg by mouth 3 (three) times a day Active furosemide (Lasix) 20 MG tablet Take 4 tablets (80 mg total) by mouth 2 (two) times a day 240 tablet 3 1 Active amLODIPine (NORVASC) 10 MG tablet 1 Active aspirin 325 MG EC tablet 1 Active Azelastine HCl 0.15 % solution USE 1 SPRAY IN BOTH NOSTRIL DAILY NEEDED FOR ALLERGY SYMPTOMS 1 Active gabapentin (NEURONTIN) 100 MG capsule TAKE 1 CAPSULE BY MOUTH 3 TIMES A DAY NEEDED FOR NEUROPATHIC PAIN 1 Active metoprolol succinate XL (TOPROL-XL) 50 MG 24 hr tablet 1 Active oxyCODONE (ROXICODONE) 5 MG immediate release tablet TAKE 1 TABLET BY MOUTH EVERY 6 HOURS NEEDED FOR PAIN. INSURANCE MAX 2 FILLS IN 54 DAYS 1 Active pantoprazole (PROTONIX) 20 MG EC tablet 1 Active sucralfate (CARAFATE) 1 g tablet 1 Active [facility] Aspirin Low Dose 81 MG EC tablet 1 Active midodrine (PROAMATINE) 2.5 MG tablet TAKE 1 TABLET BY MOUTH THREE TIMES A DAY. STOP SODIUM BICARB AND CALCITRIOL 90 tablet 11 2 Active sodium polystyrene sulfonate (KAYEXALATE) powder TAKE 15 GRAMS BY MOUTH TWICE A DAY FOR 4 DAYS A WEEK (//SUN /SUN) ON NON-DIALYSIS DAYS 480 g 6 4 Active D3-50 1.25 MG (12473 UT) capsule TAKE 1 CAPSULE BY MOUTH PER WEEK 12 capsule 4 Active sevelamer carbonate (RENVELA) 800 MG tabletIndication s:End stage renal disease (HCC) TAKE 4 TABLETS (3,200 MG TOTAL) BY MOUTH IN THE MORNING AND 4 TABLETS (3,200 MG TOTAL) AT NOON AND 4 TABLETS (3,200 MG TOTAL) IN THE EVENING. TAKE WITH MEALS. SWALLOW TABLET WHOLE DO NOT CRUSH, BREAK, OR CHEW.. 1080 tablet 4 Active Active Problems Problem Noted Date Diagnosed Date End stage renal disease 10/18/2020 Dependence on renal dialysis 10/18/2020 Chronic kidney disease stage 3 08/30/2020 Essential hypertension 08/30/2020 Proteinuria 08/30/2020 Renal disorder due to type 2 diabetes mellitus 0 08/30/2020 Stage 5 chronic kidney disease 08/30/2020 Renal osteodystrophy 08/30/2020 Encounters Date Type Department Care Team Description 08/01/2024 Treatment [facility] [address] [address] Fransico Green MD End stage renal disease; Dependence on renal dialysis 07/16/2024 Orders Only [facility] [address] [address] Fransico Green MD 07/04/2024 Treatment [facility] [address] [address] Fransico Green MD 07/02/2024 Treatment [facility] [address] [address] Fransico Green MD 06/13/2024 Treatment [facility] [address] [address] Fransico Green MD 06/06/2024 Treatment [facility] [address] [address] Fransico Green MD 05/27/2024 Treatment [facility] [address] [address] Fransico Green MD 05/21/2024 Treatment [facility] [address] [address] Fransico Green MD 05/14/2024 Treatment [facility] [address] [place] [address] Fransico Green MD from Last 3 Months Immunizations Name Administration Dates Next Due Pneumococcal Polysaccharide 11/12/2009 Family History Medical History Relation Comments Diabetes Mother Hypertension Mother Relation Status Comments Mother Social History Tobacco Use Types Packs/Day Years Used Date Smoking Tobacco: Never Sex and Gender Information Value Date Recorded Sex Assigned at Not on file Legal Sex Male 4:40 PM EST Gender Identity Not on file Sexual Orientation Not on file Last Filed Vital Signs Vital Sign Reading Time Taken Comments Blood Pressure 141/80 08/30/2020 1:54 PM EDT Pulse 72 08/30/2020 1:54 PM EDT Temperature - - Respiratory Rate - - Oxygen Saturation 99% 08/30/2020 1:54 PM EDT Inhaled Oxygen Concentration - - Weight 134 kg (295 lb 3.2 oz) 08/30/2020 1:54 PM EDT Height 180.3 cm (5' 11 ) 07/01/2020 12:00 PM EST Body Mass Index 41.17 07/01/2020 12:00 PM EST Plan of Treatment Health Maintenance Due Date Last Done Comments Hepatitis B Vaccine (1 of 5 - Risk Dialysis 4-dose series) 1975 12/14/2023, 09/12/2023, 08/17/2023, Additional history exists Colorectal Cancer Screening: Annual FOBT 2004 Colorectal Cancer Screening: Colonoscopy 2004 Colorectal Cancer Screening: Sigmoidoscopy 2004 Diabetes: Ophthalmology Exam 07/04/2020 Diabetes: Pedal Pulse Checked 07/04/2020 Diabetes: Sensory Foot Exam 07/04/2020 Diabetes: Visual Foot Exam 07/04/2020 Pneumococcal Vaccine: 65+ Ye ars (3 of 3 - PCV) 04/21/2022 04/21/2021, 11/12/2009, 06/20/2005 Influenza Vaccine (#1) 2024 04/24/2019 Diabetes: Hemoglobin A1C 09/09/2024 025, 01/11/2022, 07/13/2021, Additional history exists Procedures Procedure Name Priority Date/Time Associated Diagnosis Comments PASCUALH (HC) Routine 07/30/2024 3:00 AM EST POTASSIUM Routine 07/30/2024 3:00 AM EST LIH (HC) Routine 07/28/2024 3:00 AM EST POTASSIUM Routine 07/28/2024 3:00 AM EST HEMOGLOBIN Routine 07/28/2024 3:00 AM EST LIH (HC) Routine 07/16/2024 3:00 AM EST POTASSIUM Routine 07/16/2024 3:00 AM EST HEPATITIS B SURFACE ANTIGEN W/REFL CONFIRM Routine 07/11/2024 3:00 AM EST TRANSFERRIN SATURATION Routine 3:00 AM EST PROTEIN, TOTAL, SERUM Routine 07/11/2024 3:00 AM EST MAGNESIUM Routine 07/11/2024 3:00 AM EST LIH (HC) Routine 07/11/2024 3:00 AM EST ELECTROLYTE PANEL Routine 07/11/2024 3:0 0 AM EST LACTATE DEHYDROGENASE Routine 07/11/2024 3:00 AM EST GLUCOSE, RANDOM Routine 07/11/2024 3:00 AM EST CREATININE, SERUM Routine 07/11/2024 3:0 0 AM EST BILIRUBIN, TOTAL Routine 07/11/2024 3:00 AM EST ALT Routine 07/11/2024 3:00 AM EST AST Routine 07/11/2024 3:00 AM EST ALKALINE PHOSPHATASE Routine 07/11/2024 3:00 AM EST CALCIUM PHOSPHORUS PRODUCT, ADJUSTED (HC) Routine 07/11/2024 3:00 AM EST FERRITIN Routine 07/11/2024 3:00 AM EST KT/V NATURAL LOG, URR (HC) Routine 07/11/2024 3:00 AM EST CBC AND DIFFERENTIAL Routine 07/11/2024 3:00 AM EST LIH (HC) Routine 07/02/2024 3:00 AM EST POTASSIUM Routine 07/02/2024 3:00 AM EST HEMOGLOBIN Routine 06/30/2024 3:00 AM EST LIH (HC) Routine 06/25/2024 3:00 AM EST POTASSIUM Routine 06/25/2024 3:00 AM EST LIH (HC) Routine 06/18/2024 3:00 AM EST POTASSIUM Routine 06/18/2024 3:00 AM EST LIH (HC) Routine 06/13/2024 3:00 AM EST COLLECTION DATE (HC) Routine 06/13/2024 3:00 AM EST KT/V NATURAL LOG, URR (HC) Routine 06/13/2024 3:00 AM EST ALUMINUM LEVEL Routine 06/11/2024 3:00 AM EST HEMOGLOBIN A1C Routine 06/11/2024 3:00 AM EST HEPATITIS C ABS W/REFLEX RNA DETECTR Routine 06/11/2024 3:00 AM EST CONFIRMATION TEST HCV Routine 06/11/2024 3:00 AM EST HEPATITIS B SURFACE ANTIGEN W/REFL CONFIRM Routine 06/11/2024 3:00 AM EST URIC ACID Routine 06/11/2024 3:00 AM EST TRANSFERRIN SATURATION Routine 3:00 AM EST PROTEIN, TOTAL, SERUM Routine 06/11/2024 3:00 AM EST ELECTROLYTE PANEL Routine 06/11/2024 3:0 0 AM EST LACTATE DEHYDROGENASE Routine 06/11/2024 3:00 AM EST MAGNESIUM Routine 06/11/2024 3:00 AM EST LIH (HC) Routine 06/11/2024 3:00 AM EST LIPID PANEL Routine 06/11/2024 3:00 AM EST AST Routine 06/11/2024 3:00 AM EST GLUCOSE, RANDOM Routine 06/11/2024 3:00 AM EST ALT Routine 06/11/2024 3:00 AM EST ALKALINE PHOSPHATASE Routine 06/11/2024 3:00 AM EST CREATININE, SERUM Routine 06/11/2024 3:0 0 AM EST BILIRUBIN, TOTAL Routine 06/11/2024 3:00 AM EST CALCIUM PHOSPHORUS PRODUCT, ADJUSTED (HC) Routine 06/11/2024 3:00 AM EST PTH, INTACT Routine 06/11/2024 3:00 AM EST FERRITIN Routine 06/11/2024 3:00 AM EST HEPATITIS B SURFACE ANTIBODY QUANT Routine 06/11/2024 3:00 AM EST CBC AND DIFFERENTIAL Routine 06/11/2024 3:00 AM EST KT/V NATURAL LOG, URR (HC) Routine 06/11/2024 3:00 AM EST LIH (HC) Routine 06/01/2024 3:00 AM EST POTASSIUM Routine 06/01/2024 3:00 AM EST LIH (HC) Routine 05/25/2024 3:00 AM EST POTASSIUM Routine 05/25/2024 3:00 AM EST HEMOGLOBIN Routine 05/25/2024 3:00 AM EST POTASSIUM Routine 05/21/2024 3:00 AM EST LIH (HC) Routine 05/21/2024 3:00 AM EST POTASSIUM Routine 05/14/2024 3:00 AM EST LIH (HC) Routine 05/14/2024 3:00 AM EST from Last 3 Months Results * [facility] (07/30/2024 3:00 AM EST) Only the most recent of13 resultswithin the time period is included. Lipemia Normal Normal [facility] Icterus Normal Normal [facility] Hemolysis Normal Normal [facility] 07/30/2024 3:00 AM EST 2024 1:07 PM EST us Fransico Green MD LAB [id number] SOLICITED RESULTS Final Result [facility] [address] [place] [address] * Potassium (07/30/2024 3:00 AM EST) Only the most recent of10 resultswithin the time period is included. Potassium 4.4 3.4 - 5.0 mEq/L [facility] 07/30/2024 3:00 AM EST 2024 1:07 PM EST Fransico Green MD LAB BLOOD ORDERABLES Final Re sult Performing Organization Address [facility] Co de Phone Number [facility] [address] [place] [address] * (ABNORMAL) Hemoglobin (07/28/2024 3:00 AM EST) Only the most recent of3 resultswithin the time period is included. Hgb 8.8(L) 13.7 - 17.5 g/dL [facility] Hemoglobin x 3 26.4(L) 41.1 - 52.5 g/dL [facility] 07/28/2024 3:00 AM EST 07/29/2024 12:26 PM EST Fransico Green MD LAB BLOOD ORDERABLES Final Re sult Performing Organization Address [facility] de Phone Number [facility]PS [facility] [address] [place] [address] * (ABNORMAL) Kt/V Natural Log, URR (07/11/2024 3:00 AM EST) Only the most recent of3 resultswithin the time period is included. Treatment Time 214 min [facility] Pre-Weight, lb 103.9 kg [facility] Post-Weight, lb 102.3 kg [facility] Ultrafiltration Rate 4 <=13 mL/kg/hr [facility] Comment: Recommend achieving Ultrafiltration Rate (UFR) <=10 mL/kg/hr References: Bernadette KAUR et al. Kidney Int. 2010; 79(2):250-257 BUN Post Dialysis 13 7 - 25 mg/dL [facility] BUN 51(H) 7 - 25 mg/dL [facility] UREA REDUCTION RATIO (%) 75 >=65 % [facility] Kt/V Natural Log 1.53 >=1.2 [facility] 07/11/2024 3:00 AM EST 07/12/2024 2:06 PM EST Fransico Green MD LAB [id number] SOLICITED RESULTS Final Result Performing Organization Address [facility]/ZIP Co de Phone Number [facility]PS [facility] [address] [place] [address] * Calcium Phosphorus Product, Adjusted (07/11/2024 3:00 AM EST) Only the most recent of2 resultswithin the time period is included. Albumin 4.1 3.6 - 5.4 g/dL [facility] Calcium 9.8 8.6 - 10.3 mg/dL [facility] Phosphorus, Serum 4.5 2.5 - 5.0 mg/dL [facility] Ca*PO4 44.1 <55.0 mg2/dL2 [facility] Calcium, Adjusted Total 9.8 8.6 - 10.3 mg/dL [facility] CA*PO4 CORRCTD 44.1 <55.0 mg2/dL2 [facility] 07/11/2024 3:00 AM EST 07/12/2024 3:18 PM EST Fransico Green MD LAB [id number] SOLICITED RESULTS Final Result Performing Organization Address [facility] Co de Phone Number [facility] [address] [place] [address] * Hepatitis B Surface Ag w/Reflex Confirmation (07/11/2024 3:00 AM EST) Only the most recent of2 resultswithin the time period is included. Hep B Surface Antigen Negative Negative [facility] 07/11/2024 3:00 AM EST 07/12/2024 3:18 PM EST Fransico Green MD LAB BLOOD ORDERABLES Final Re sult Performing Organization Address [facility] Co de Phone Number [facility] [address] [place] [address] * (ABNORMAL) TSAT (07/11/2024 3:00 AM EST) Only the most recent of2 resultswithin the time period is included. [facility] Iron 44(L) 65 - 175 ug/dL [facility] Transferrin 138(L) 215 - 365 mg/dL [facility] TIBC 193(L) 211 - 406 ug/dL [facility] Iron Saturation (TSat) 23 22 - 52 % [facility] 07/11/2024 3:00 AM EST 07/12/2024 3:18 PM EST us Fransico Green MD LAB BLOOD ORDERABLES Final Re sult [facility] [address] [place] [address] * (ABNORMAL) CBC and Differential (07/11/2024 3:00 AM EST) Only the most recent of2 resultswithin the time period is included. [facility] DIFFERENTIAL MANUAL, 2 Not Indicated [facility] White Blood Cells 8.2 4.2 - 9.1 K/uL [facility] RBC 3.14(L) 4.63 - 6.08 M/uL [facility] Hgb 9.2(L) 13.7 - 17.5 g/dL [facility] Hemoglobin x 3 27.6(L) 41.1 - 52.5 g/dL [facility] Hematocrit 27.8(L) 40.1 - 51.0 % [facility] MCV 88.5 79.0 - 92.2 fL [facility] MCH 29.3 25.7 - 32.2 pg [facility] MCHC 33.1 32.3 - 36.5 g/dL [facility] Platelets 175 163 - 337 K/uL [facility] RDW 14.1 11.6 - 14.4 % [facility] Neutrophils Relative 64.1 34.0 - 67.9 % [facility] Lymphocytes Relative 15.7(L) 21.8 - 53.1 % [facility] Monocytes 12.1 5.3 - 12.2 % [facility] Eosinophils Relative 6.7 0.8 - 7.0 % [facility] Basophils Relative 0.7 0.2 - 1.2 % [facility] Immature Granulocytes 0.7 0.0 - 1.0 % [facility] 07/11/2024 3:00 AM EST 07/12/2024 1:51 PM EST us Fransico Green MD LAB BLOOD ORDERABLES Final Re sult Performing Organization Address [facility] de Phone Number [facility] [address] [place] [address] * (ABNORMAL) ALT (07/11/2024 3:00 AM EST) Only the most recent of2 resultswithin the time period is included. ALT (SGPT) <7(L) 10 - 49 U/L [facility] 07/11/2024 3:00 AM EST 07/12/2024 3:18 PM EST us Fransico Green MD LAB BLOOD ORDERABLES Final Re sult Performing Organization Address [facility] de Phone Number [facility]PS [facility] [address] [place] [address] * AST (07/11/2024 3:00 AM EST) Only the most recent of2 resultswithin the time period is included. AST (SGOT) 13 <34 U/L [facility] 07/11/2024 3:00 AM EST 07/12/2024 3:18 PM EST us Fransico Green MD LAB BLOOD ORDERABLES Final Re sult Performing Organization Address [facility] de Phone Number [facility] [address] [place] [address] * Protein, total (07/11/2024 3:00 AM EST) Only the most recent of2 resultswithin the time period is included. Total Protein 6.7 6.4 - 8.9 g/dL [facility] 07/11/2024 3:00 AM EST 07/12/2024 3:18 PM EST us Fransico Green MD LAB BLOOD ORDERABLES Final Re sult Performing Organization Address [facility] de Phone Number [facility] [address] [place] [address] * Alkaline phosphatase (07/11/2024 3:00 AM EST) Only the most recent of2 resultswithin the time period is included. Alkaline Phosphatase 64 46 - 116 U/L [facility] 07/11/2024 3:00 AM EST 07/12/2024 3:18 PM EST Fransico Green MD LAB BLOOD ORDERABLES Final Re sult Performing Organization Address [facility] de Phone Number [facility] [address] [place] [address] * Magnesium (07/11/2024 3:00 AM EST) Only the most recent of2 resultswithin the time period is included. Magnesium 2.1 1.9 - 2.7 mg/dL [facility] 07/11/2024 3:00 AM EST 07/12/2024 3:18 PM EST Fransico Green MD LAB BLOOD ORDERABLES Final Re sult Performing Organization Address [facility] de Phone Number [facility] [address] [place] [address] * Lactate dehydrogenase (07/11/2024 3:00 AM EST) Only the most recent of2 resultswithin the time period is included. LDH 208 120 - 246 U/L [facility] 07/11/2024 3:00 AM EST 07/12/2024 3:18 PM EST Fransico Green MD LAB BLOOD ORDERABLES Final Re sult Performing Organization Address [facility] de Phone Number [facility] [address] [place] [address] * (ABNORMAL) Glucose, random (07/11/2024 3:00 AM EST) Only the most recent of2 resultswithin the time period is included. Glucose 119(H) 74 - 109 mg/dL [facility] 07/11/2024 3:00 AM EST 07/12/2024 3:18 PM EST Fransico Green MD LAB BLOOD ORDERABLES Final Re sult Performing Organization Address [facility] de Phone Number [facility] [address] [place] [address] * (ABNORMAL) Ferritin (07/11/2024 3:00 AM EST) Only the most recent of2 resultswithin the time period is included. Ferritin 1,444(H) 22 - 322 ng/mL [facility] 07/11/2024 3:00 AM EST 07/12/2024 3:18 PM EST Fransico Green MD LAB BLOOD ORDERABLES Final Re sult Performing Organization Address [facility] de Phone Number [facility] [address] [place] [address] * (ABNORMAL) Creatinine, serum (07/11/2024 3:00 AM EST) Only the most recent of2 resultswithin the time period is included. Creatinine 8.86(H) 0.70 - 1.30 mg/dL [facility] 07/11/2024 3:00 AM EST 07/12/2024 3:18 PM EST Fransico Green MD LAB BLOOD ORDERABLES Final Re sult Performing Organization Address [facility] de Phone Number [facility] [address] [place] [address] * Bilirubin, total (07/11/2024 3:00 AM EST) Only the most recent of2 resultswithin the time period is included. Total Bilirubin 0.3 0.3 - 1.2 mg/dL [facility] 07/11/2024 3:00 AM EST 07/12/2024 3:18 PM EST Fransico Green MD LAB BLOOD ORDERABLES Final Re sult Performing Organization Address [facility] Co de Phone Number [facility] [address] [place] [address] * Electrolyte panel (07/11/2024 3:00 AM EST) Only the most recent of2 resultswithin the time period is included. Sodium 136 136 - 145 mEq/L [facility] Potassium 4.0 3.4 - 5.0 mEq/L [facility] Chloride 98 98 - 107 mEq/L [facility] Bicarbonate (CO2) 26 21 - 31 mEq/L [facility] Anion Gap 12 3 - 14 mEq/L [facility] 07/11/2024 3:00 AM EST 07/12/2024 3:18 PM EST Fransico Green MD LAB BLOOD ORDERABLES Final Re sult Performing Organization Address [facility] de Phone Number [facility] [address] [place] [address] * Collection Date (06/13/2024 3:00 AM EST) Collection Date See Comment [facility] Comment: Patient sample received may exceed specimen stability, based on the collection date electronically provided. ??When reviewing patient results, verify collection information and consider specimen stability before acting on any critical or panic results. 06/13/2024 3:00 AM EST Fransico Green MD LAB [id number] SOLICITED RESULTS Final Result Performing Organization Address [facility] de Phone Number [facility] [address] [place] [address] * Confirmation Test HCV (06/11/2024 3:00 AM EST) Hep C Ab Confirmation Not needed [facility] 06/11/2024 3:00 AM EST 06/12/2024 1:35 PM EST us Fransico Green MD LAB BLOOD ORDERABLES Final Re sult Performing Organization Address [facility] de Phone Number [facility] [address] [place] [address] * HEPATITIS C ABS W/REFLEX RNA DETECTR (06/11/2024 3:00 AM EST) Hep C Virus Ab Non-Reacti ve Non-Reacti ve [facility] 06/11/2024 3:00 AM EST 06/12/2024 1:14 PM EST Fransico Green MD LAB [id number] SOLICITED RESULTS Final Result Performing Organization Address [facility] de Phone Number [facility] [address] [place] [address] * Aluminum level (06/11/2024 3:00 AM EST) Pathologist [facility] Aluminum 4 1 - 20 ug/L [facility] 06/11/2024 3:00 AM EST 06/12/2024 12:42 PM EST Fransico Green MD LAB BLOOD ORDERABLES Final Re sult Performing Organization Address [facility] de Phone Number [facility] [address] [place] [address] * (ABNORMAL) Hepatitis B Surface Antibody (06/11/2024 3:00 AM EST) Hep B Surface Antibody <4(A) mIU/mL [facility] Comment: Interpretation: <10: No Immunity >=10: Probable Immunity 06/11/2024 3:00 AM EST 06/12/2024 1:14 PM EST us Fransico Green MD LAB BLOOD ORDERABLES Final Re sult Performing Organization Address [facility] de Phone Number [facility] [address] [place] [address] * Uric Acid (06/11/2024 3:00 AM EST) Uric Acid 5.5 4.4 - 7.6 mg/dL [facility] 06/11/2024 3:00 AM EST 06/12/2024 1:14 PM EST Fransico Green MD LAB BLOOD ORDERABLES Final Re sult Performing Organization Address [facility] de Phone Number [facility] [address] [place] [address] * PTH, Intact (06/11/2024 3:00 AM EST) PTH, Intact 423 160 - 721 pg/mL [facility] Comment: Suggested (KDIGO) ESRD maintenance range is two to nine times the upper normal limit (80.1 pg/mL) for the laboratory. 06/11/2024 3:00 AM EST 06/12/2024 1:14 PM EST Fransico Green MD LAB BLOOD ORDERABLES Final Re sult Performing Organization Address [facility] de Phone Number [facility] [address] [place] [address] * Hemoglobin A1c (06/11/2024 3:00 AM EST) Hemoglobin A1C 5.4 <5.7 % [facility] Comment: Methodology: Enzymatic HbA1c (NGSP %) ?Suggested Diagnosis >6.4% ? Diabetic 5.7-6.4% ?Pre-Diabetic <5.7% ? Non-Diabetic Diabetic Glucose Control Evaluation: Therapeutic action suggested at >8.0% ADA recommends a glycemic goal of <7.0% 06/11/2024 3:00 AM EST 06/12/2024 1:35 PM EST Fransico Green MD LAB BLOOD ORDERABLES Final Re sult [facility] [address] [place] [address] * (ABNORMAL) Lipid panel (06/11/2024 3:00 AM EST) Cholesterol 137 <200 mg/dL [facility] Comment: Optimal: ?<200 Borderline: ? 200-239 Higher Risk: ?>239 Triglycerides 140 <150 mg/dL [facility] Comment: Optimal: ?<150 Borderline High: ??150-199 High: ? 200-499 Very High: ?>499 HDL 29(A) >59 mg/dL [facility] Comment: Desirable: ?>59 Higher Risk: ?<40 LDL-Calc 80 <100 mg/dL [facility] Comment: Optimal: ?<100 Above Optimal: ?100-129 Borderline High: ??130-159 High: ? 160-189 Very High: ?>189 VLDL Cholesterol Myron 28 <30 mg/dL [facility] Comment: Optimal: ?<30 Borderline High: ??30-39 High: ? 40-99 Very High: ?>99 Chol/HDL Ratio 4.7(A) <3.3 [facility] Comment: Optimal: ?<3.3 Higher Risk: ?>6.2 06/11/2024 3:00 AM EST 06/12/2024 1:14 PM EST us Fransico Green MD LAB BLOOD ORDERABLES Final Re sult Performing Organization Address [facility] Co de Phone Number [facility] [address] [place] [address] from Last 3 Months Insurance 37 06/05 [place] [facility] 37 06/05 [place] [facility] Care Teams Public Health Social Worker Relationship Specialty Start Date End Date Sameer English MD [address] [place] [id number] PCP - General 06/14/20
--- OUTSIDE RECORDS SUMMARY | 2024-08-06 06:07 | XMS_ITS | Encounter Summary ---
Author Organization [facility] Address [address] [address] Phone Care Team Providers Care Instructional Support Technician Name Role Phone Sameer English MD Primary Care Provider +1- [phone] Encounter Details Date Type Department Care Team (Late st Contact Info) Description 07/16/2024 Orders Only [facility]. [address] [address] Fransico Green MD [address] [address] Social History Tobacco Use Types Packs/Day Years Used Date Smoking Tobacco: Never Sex and Gender Information Value Date Recorded Sex Assigned at Not on file Legal Sex Male 4:40 PM EST Gender Identity Not on file Sexual Orientation Not on file documented as of this encounter Plan of Treatment Not on file documented as of this encounter Procedures Procedure Name Priority Date/Time Associated Diagnosis Comments [facility] () Routine 07/30/2024 3:00 AM EST POTASSIUM Routine 07/30/2024 3:00 AM EST LI () Routine 07/28/2024 3:00 AM EST HEMOGLOBIN Routine 07/28/2024 3:00 AM EST POTASSIUM Routine 07/28/2024 3:00 AM EST LI () Routine 07/16/2024 3:00 AM EST POTASSIUM Routine 07/16/2024 3:00 AM EST documented in this encounter Results * LIH (07/30/2024 3:00 AM EST) Lipemia Normal Normal [facility] Icterus Normal Normal [facility] Hemolysis Normal Normal [facility] 07/30/2024 3:00 AM EST 2024 1:07 PM EST Fransico Green MD LAB [id number] SOLICITED RESULTS Final Result Performing Organization Address City/[facility]/ZIP Co de Phone Number APS [facility] [address] [place] [address] * Potassium (07/30/2024 3:00 AM EST) Potassium 4.4 3.4 - 5.0 mEq/L [facility] 07/30/2024 3:00 AM EST 2024 1:07 PM EST Fransico Green MD LAB BLOOD ORDERABLES Final Re sult Performing Organization Address [facility]/ZIP Co de Phone Number APS [facility] [address] [place] [address] * LIH (07/28/2024 3:00 AM EST) Lipemia Normal Normal [facility] Icterus Normal Normal [facility] Hemolysis Normal Normal [facility] 07/28/2024 3:00 AM EST 07/29/2024 12:18 PM EST Fransico Green MD LAB [id number] SOLICITED RESULTS Final Result Performing Organization Address City/[facility] Co de Phone Number APS [facility] [address] [place] [address] * Potassium (07/28/2024 3:00 AM EST) Potassium 4.2 3.4 - 5.0 mEq/L [facility] 07/28/2024 3:00 AM EST 07/29/2024 12:18 PM EST Fransico Green MD LAB BLOOD ORDERABLES Final Re sult Performing Organization Address [facility] de Phone Number APS [facility] [address] [place] [address] * (ABNORMAL) Hemoglobin (07/28/2024 3:00 AM EST) Hgb 8.8(L) 13.7 - 17.5 g/dL [facility] Hemoglobin x 3 26.4(L) 41.1 - 52.5 g/dL [facility] 07/28/2024 3:00 AM EST 07/29/2024 12:26 PM EST Fransico Green MD LAB BLOOD ORDERABLES Final Re sult Performing Organization Address [facility] de Phone Number [facility]PS [facility] [address] [place] [address] * LIH (07/16/2024 3:00 AM EST) Lipemia Normal Normal [facility] Icterus Normal Normal [facility] Hemolysis Normal Normal [facility] 07/16/2024 3:00 AM EST 07/17/2024 3:00 PM EST Fransico Green MD LAB [id number] SOLICITED RESULTS Final Result Performing Organization Address [facility] de Phone Number APS [facility] [address] [place] [address] * Potassium (07/16/2024 3:00 AM EST) Potassium 4.1 3.4 - 5.0 mEq/L [facility] 07/16/2024 3:00 AM EST 07/17/2024 3:00 PM EST Fransico Green MD LAB BLOOD ORDERABLES Final Re sult Performing Organization Address [facility] de Phone Number APS [facility] [address] [place] [address] documented in this encounter Visit Diagnoses Not on filedocumented in this encounter Care Teams Instructional Support Technician Relationship Specialty Start Date End Date Sameer English MD [address] [place] [id number] PCP - General 06/14/20 documented as of this encounter
--- OUTSIDE RECORDS SUMMARY | 2024-08-06 06:07 | XMS_ITS | Encounter Summary ---
Author Organization [facility] Address [address] [facility] [facility] [address] [place] [address] Phone Care Team Providers Care Calendering Machine Operator Name Role Phone Sameer English MD Primary Care Provider +1- [phone] Reason for Referral * Cardiac Services (Routine) - Closed Specialty Diagnoses / Procedures Referred By Lucie t Referred To Contact Nephrology Diagnoses End stage renal disease (HCC) Procedures Initiate ABPM Monitoring Fransico Green MD Phone: tel: fax: [facility] [address] [facility] [facility] [address] [place] [address] Phone: tel: fax: Referral ID Status Reason Start Date Expiration Date Visits Re quested Visits Authorized [id number] Closed 06/13/2023 06/12/2024 1 1 Encounter Details Date Type Department Care Team (Latest Contact Info) Description 06/13/2023 Office Communication [facility] [address] [facility] [address] [place] [address] Fransico Green MD [address] [facility] [address] [place] [phone] End stage renal disease (HCC) (Primary Dx) Social History Tobacco Use Types Packs/Day Years Used Date Smoking Tobacco: Never Sex and Gender Information Value Date Recorded Sex Assigned at Not on file Legal Sex Male 4:40 PM EST Gender Identity Not on file Sexual Orientation Not on file documented as of this encounter Miscellaneous Notes * Telephone Encounter - Fransico Green MD - 06/13/2023 10:14 AM EST Please call PT and arrange for ABPM--he is ESRD and does not need doctor's appt but needs ABPM arranged this month--pls call as he is anxious to get itscheduled--thx documented in this encounter Plan of Treatment Scheduled Orders Name Type Priority Associated Diagnoses Orde r Schedule Initiate ABPM Monitoring Cardiac Services Routine End stage renal disease (HCC) Expected: 06/20/2023, Expires: 06/13/2025 documented as of this encounter Visit Diagnoses Diagnosis End stage renal disease (HCC)- Primary End stage renal disease documented in this encounter Care Teams Calendering Machine Operator Relationship Specialty Start Date End Date Sameer English MD [address] [place] [place] [id number] PCP - General 06/14/20 documented as of this encounter
--- OUTSIDE RECORDS SUMMARY | 2024-08-06 06:07 | XMS_ITS | Encounter Summary ---
Demographics Address [address] [place] [address] Home Phone Mobile Phone Preferred Language en Marital Status Single Sikhism Affiliation Unknown Race White Ethnic Group Not or Lati no Author Organization [facility] Address [address] [address] Phone Care Team Providers Care Color Mixer Name Role Phone Sameer English MD Primary Care Provider +1- [phone] Encounter Details Date Type Department Care Team ([facility] st Contact Info) Description 08/01/2024 Treatment [facility] [address] [address] Nerissa Moise MD [address] [address] End stage renal disease; Dependence on renal dialysis Social History Tobacco Use Types Packs/Day Years Used Date Smoking Tobacco: Never Sex and Gender Information Value Date Recorded Sex Assigned at Not on file Legal Sex Male 4:40 PM EST Gender Identity Not on file Sexual Orientation Not on file documented as of this encounter Miscellaneous Notes * Dialysis Note - Nerissa Moise MD - 08/01/2024 12:00 AM EST Patient: Von Lala : 1955 Note Type: Dialysis Rounds-Basic Telehealth Service Date: 08/01/2024 Telehealth encounter using audiovisual technology, performed according to state requirements. Appropriate patient consent obtained. This patient was personally seen for a basic visit as part of routine monthly dialysis care for end stage renal disease. Attending Nursing Care Partner: NERISSA MOISE MD Dialysis Location: [facility] Schedule: Shift: 1 ADEQUACY ASSESSMENT Kt/V, Natural Log 1.53 (07/11/24) 1.46 (06/13/24) 1.41 (06/11/24) UREA REDUCTION RATIO (%) 75 (07/11/24) 72 (06/13/24) 74 (06/11/24) BUN 51 (07/11/24) 68 (06/13/24) 58 (06/11/24) BUN Post Dialysis 13 (07/11/24) 19 (06/13/24) 15 (06/11/24) Creatinine 8.86 (07/11/24) 10.18 (06/11/24) 7.94 (05/07/24) Bicarbonate (CO2) 26 (07/11/24) 23 (06/11/24) 26 (05/07/24) Sodium 136 (07/11/24) 137 (06/11/24) 138 (05/07/24) ANEMIA ASSESSMENT Hgb 8.8 (07/28/24) 9.2 (07/11/24) 11.6 (06/30/24) Iron Saturation (TSat) 23 (07/11/24) 29 (06/11/24) 45 (05/07/24) Ferritin 1,444 (07/11/24) 1,316 (06/11/24) 1,360 (04/09/24) Iron 44 (07/11/24) 53 (06/11/24) 98 (05/07/24) TIBC 193 (07/11/24) 181 (06/11/24) 218 (05/07/24) MCV 88.5 (07/11/24) 88.3 (06/11/24) 96.1 (05/07/24) Platelets 175 (07/11/24) 181 (06/11/24) 244 (05/07/24) BMM ASSESSMENT Calcium, Adjusted Total 9.8 07/11/24 9.6 06/11/24 9.6 05/07/24 Calcium 9.8 07/11/24 9.6 06/11/24 9.6 05/07/24 Phosphorus, Serum 4.5 07/11/24 5.2 06/11/24 4.5 05/07/24 Ca*PO4 44.1 07/11/24 49.9 06/11/24 43.2 05/07/24 PTH, Intact 423 06/11/24 505 05/07/24 147 04/09/24 Magnesium 2.1 07/11/24 2.2 06/11/24 1.9 05/07/24 Alkaline Phosphatase 64 07/11/24 72 06/11/24 118 05/07/24 Aluminum 4 06/11/24 NUTRITION ASSESSMENT Albumin 4.1 07/11/24 4.4 06/11/24 4.2 05/07/24 Potassium 4.4 07/30/24 4.2 07/28/24 4.1 07/16/24 Hemoglobin A1C 5.4 06/11/24 ADDITIONAL LABS White Blood Cells 8.2 (07/11/24) 5.9 (06/11/24) 11.2 (05/07/24) Cholesterol 137 (06/11/24) HDL 29 (06/11/24) LDL-Calc 80 (06/11/24) Triglycerides 140 (06/11/24) Hep B Surface Antibody <4 (06/11/24) Uric Acid 5.5 (06/11/24) ADDITIONAL COMMENT COMMENTS: 05/07/24 same issues 05/14/24 stable 05/21/24 no new issues 05/27/24 stable 06/06/23 same issues, has upcoming appt w xplabt 06/13/24 stable 07/04/24 stable 08/01/24 recent events and Hosp and card ongoing eval 02/06/24 stable 02/15/24 doing ok 02/27/24 bp remains high-- incr bp meds 03/05/24 no new issues 03/12/24 stable remains frustrated re decr energy levels 04/02/24 same issuesb 04/11/24 stable 04/18/24 labile bps, f/u with cards and xplant eval in progress 04/21/24 stable, [place] [facility] [place] [facility] 04/29/24 same Signed by: NERISSA MOISE MD on 08/01/2024 at 10:07:31 PM documented in this encounter Plan of Treatment Not on file documented as of this encounter Visit Diagnoses Diagnosis End stage renal disease Dependence on renal dialysis documented in this encounter Care Teams Color Mixer Relationship Specialty Start Date End Date Sameer English MD [address] [place] [place] [id number] PCP - General 06/14/20 documented as of this encounter
[2024-08-06] MEDS: 0.9 % Sodium Chloride Flush 3 ML SYRINGE IVFLUSH ×3 (08:32→21:26)
--- NOTE | 2024-08-06 08:58 | PHA.MEDREC ---
Addendum entered by Eldon [facility] 08/06/24 09:30: MED REC CHECKED BY [facility] Original Note: Pharmacy Consult ? Medication Reconciliation Pharmacy has completed the medication reconciliation. Spoke with patient to confirm. He reports the doctor told him to stop taking carvedilol. He takes all of his BP medications as needed. He only had a parameter for hydralazine which was SBP>190. He currently has a clonidine patch on and changes it on . He takes SPS powder on non-dialysis days normally bid but will do once daily if his potassium is <4. LF for sevelamer was in May for a 30 DS, says he takes 3-4 tabs with meals. Patient reports he took his medications yesterday, no BP meds yesterday.
--- NOTE | 2024-08-06 12:41 | MHC.EDTECH ---
patient refusing all further blood sugars.
[2024-08-06 12:43] LABS: Glucose, Whole Blood 90 mg/dL (60-115)
[2024-08-06] MEDS: NIFEdipine ER 30 MG TAB.ER.24 PO (18:31)
[2024-08-06] MEDS: Gabapentin 300 MG CAPSULE PO (21:25)
[2024-08-06] MEDS: hydrALAZINE HCl 25 MG TABLET PO (21:25)
[2024-08-06] MEDS: Atorvastatin Calcium 80 MG TABLET PO (21:26)
[2024-08-07] VITALS: BP 140/81; PULSE 96; RESP 18; TEMP 36.3; O2SAT 96
[2024-08-07 03:14] VITALS: BP 161/83; PULSE 89; RESP 20; TEMP 37.4; O2SAT 97
[2024-08-07] MEDS: Omeprazole 20 MG CAPSULE.DR PO (06:23)
[2024-08-07 06:45] LABS: Hematocrit 23.6 % (42.0-52.0); Hemoglobin 7.6 g/dl (14.0-18.0); Mean Corpuscular HGB Conc 32.2 g/dl (31.0-36.0); Mean Corpuscular Hemoglobin 30.3 pg (27.0-33.0); Mean Platelet Volume 9.7 fL (9.4-12.4); Platelet Count 201 X10*3/uL (160-400); Red Blood Count 2.51 X10*6/uL (4.60-5.80); Red Cell Distribution Width 17.6 % (11.0-16.0); White Blood Count 5.4 X10*3/uL (4.8-10.8)
[2024-08-07 07:12] LABS: Anion Gap 12 (12-20); Blood Urea Nitrogen 28 mg/dL (9-16); Calcium 9.4 mg/dL (8.4-10.2); Carbon Dioxide 31 mmol/L (22-29); Chloride 102 mmol/L (96-108); Creatinine Clr Calc Pharmacy 18.1; Estimated Glomerular Filt Rate 12; Glucose Random 100 mg/dL (60-115); Magnesium 1.9 mg/dL (1.6-2.6); Sodium 141 mmol/L (135-145)
[2024-08-07] MEDS: allopurinoL 100 MG TABLET PO (07:57)
[2024-08-07] MEDS: Aspirin Enteric Coated 81 MG TABLET.DR PO (07:57)
[2024-08-07] MEDS: Sevelamer Carbonate Tablet 800 MG TABLET PO (07:57)
[2024-08-07] MEDS: Gabapentin 300 MG CAPSULE PO (07:57)
[2024-08-07] MEDS: 0.9 % Sodium Chloride Flush 3 ML SYRINGE IVFLUSH (07:58)
[2024-08-07 08:00] VITALS: BP 151/81; PULSE 93; RESP 18; TEMP 36.9; O2SAT 97
[2024-08-07 09:47] VITALS: BP 151/81
--- NOTE | 2024-08-07 10:27 | P.CONNP_ITS ---
History of Present Illness Reason for Consult Consult date: 08/07/24 Chief Complaint Chief complaint: needs dialysis, SOB, HTN History of Present Illness Narrative: 69 year old patient with history of ESRD on chronic hemodialysis admitted with CHF and hypertension. At the time of the consultation he denies chest pain, shortness of breath, nausea, vomiting or diarrhea. Review of Systems Review of Systems 10 points ROS negative except for pertinent in HPI PMFSH Past Medical History Medical History CKD (chronic kidney disease) stage 4, GFR 15-29 ml/min Hyperlipidemia Aneurysm Diabetes mellitus Syncopal episodes Gout Renal failure Hypertension Surgical History Surgical History S/P colonoscopic polypectomy Social History Social History Household Members: None Housing: House Do you presently have visiting nurse or other home services: No Alcohol intake: never Patient Tobacco Use Status: Never used Tobacco Smoked in Last 30 Days: No Use of substances other than those prescribed or required for medical reasons: No Currently Displaying Signs/Symptoms of Drug Intoxication Withdrawal: No Have you been hit, kicked, punched, or otherwise hurt by someone within the past year? If so, by whom?: No Do you feel safe in your current relationship?: No Current Relationship Is there a partner from a previous relationship who is making you feel unsafe now?: No Are you made to feel afraid or neglected: No Advance Directives: No Advance Directives Information Provided: Yes Do you have a plan to hurt others: No Plan Recently lost weight without trying: No Nutrition Risks: No Nutritional Risk service: No Current occupational status: retired Meds Allergies Allergy/AdvReac Type Severity Reaction Status Date / Time No Known Allergies Allergy Verified 08/06/24 03:08 [No Known Allergies*] Active Medications: Current Medications Acetaminophen (Acetaminophen 325 Mg Tablet) 975 mg PO Q6H PRN PRN Reason: Pain, Mild 1-3,fever,headache Albuterol Sulfate (Albuterol Sulfate 90 Mcg 8 Gm Inhaler) 2 puff INHALE Q4H PRN PRN Reason: Shortness Of Breath Or Wheezing Allopurinol (Allopurinol 100 Mg Tablet) 100 mg PO DAILY [facility] Last Admin: 08/07/24 07:57 Dose: 100 mg Aspirin (Aspirin Enteric Coated 81 Mg Tablet.) 81 mg PO DAILY [facility] Last Admin: 08/07/24 07:57 Dose: 81 mg Atorvastatin Calcium (Atorvastatin Calcium 80 Mg Tablet) 80 mg PO BEDTIME [facility] Last Admin: 08/06/24 21:26 Dose: 80 mg Calcium Carbonate (Calcium Carbonate 750 Mg Tab.Chew) 750 mg PO Q4H PRN PRN Reason: Heartburn Clonidine (Clonidine 0.3 Mg Patch.Tdwk) 0.3 mg TRANSDERMA TH [facility]; Protocol Doxazosin Mesylate (Doxazosin Mesylate 2 Mg Tablet) 4 mg PO DAILY PRN; Protocol PRN Reason: Hypertension Gabapentin (Gabapentin 300 Mg Capsule) 300 mg PO TID [facility] Last Admin: 08/07/24 07:57 Dose: 300 mg Hydralazine HCl (Hydralazine Hcl 25 Mg Tablet) 25 mg PO DAILY PRN; Protocol PRN Reason: SBP>190 Last Admin: 08/06/24 21:25 Dose: 25 mg Magnesium Hydroxide (Milk Of Magnesia 30 Ml Oral.Susp) 30 ml PO DAILY PRN PRN Reason: Constipation Melatonin (Melatonin 3 Mg Tablet) 6 mg PO BEDTIME PRN PRN Reason: Insomnia Nifedipine (Nifedipine Er 30 Mg Tab.Er.24) 30 mg PO BID PRN PRN Reason: Hypertension Omeprazole (Omeprazole 20 Mg Capsule.) 20 mg PO DAILY@0630 [facility] Last Admin: 08/07/24 06:23 Dose: 20 mg Sevelamer Carbonate (Sevelamer Carbonate Tablet 800 Mg Tablet) 2,400 - 3,200 mg PO TIDWM [facility] Last Admin: 08/07/24 07:57 Dose: 2,400 mg Sodium Chloride (0.9 % Sodium Chloride Flush 3 Ml Syringe) [facility] Last Admin: 08/07/24 07:58 Dose: 3 ml Sodium Polystyrene Sulfonate (Sodium Polystyrene Sulfon/Sorb 15 Gm/60 Ml Oral.Susp) [facility] ?Medication ?Instructions ?Recorded ?Confirmed ?Last Taken ?Type albuterol sulfate 90 mcg/actuation 2 puff inhalation Q4-6H PRN 08/06/24 08/06/24 Unknown History aerosol inhaler Shortness Of Breath Or Wheezing allopurinol 100 mg tablet 100 mg PO DAILY 08/06/24 08/06/24 Unknown History aspirin 81 mg tablet,delayed 81 mg PO DAILY 08/06/24 08/06/24 Unknown History release atorvastatin 80 mg tablet 80 mg PO BEDTIME 08/06/24 08/06/24 Unknown History clonidine 0.3 mg/24 hr weekly 1 patch topical TH 08/06/24 08/06/24 Unknown History transdermal patch doxazosin 4 mg tablet 4 mg PO DAILY PRN Hypertension 08/06/24 08/06/24 Unknown History gabapentin 300 mg capsule 300 mg PO TID 08/06/24 08/06/24 Unknown History hydralazine 25 mg tablet 25 mg PO DAILY PRN SBP>190 08/06/24 08/06/24 Unknown History nifedipine 30 mg tablet,extended 30 mg PO BID PRN Hypertension 08/06/24 08/06/24 Unknown History release pantoprazole 20 mg tablet,delayed 20 mg PO DAILY 08/06/24 08/06/24 Unknown History release sevelamer carbonate 800 mg tablet 2,400 - 3,200 mg PO TIDWM 08/06/24 08/06/24 Unknown History sodium polystyrene sulfonate 15 g PO DIRECTED 08/06/24 08/06/24 Unknown History Physical Exam Vital Signs: Last Vital Signs Temp 98.5 F 08/07/24 08:00 Pulse 93 08/07/24 08:00 Resp 18 08/07/24 08:00 BP 151/81 H 08/07/24 09:47 Pulse Ox 97 08/07/24 08:00 O2 Del Method Nasal Cannula 08/07/24 08:00 O2 Flow Rate 1 08/07/24 08:00 BMI result Body Mass Index 33.5 Const General: alert and awake Neck Neck: Yes supple Resp Auscultation: clear to auscultation bilaterally Cardio Heart sounds: S1 normal heart sound present and S2 normal heart sound present GI Palpation (GI): Soft to palpation and nontender Extrem General: Yes AV fistula Results Lab Results 08/07/24 06:24 08/07/24 06:24 Lab results: Chemistry 08/06/24 08/07/24 03:30 06:24 Sodium 139 141 Potassium 4.6 4.0 Carbon Dioxide 25 31 H BUN 56 H 28 H Creatinine 7.63 H* 4.83 H* Calcium 10.0 D 9.4 Hematology 08/06/24 08/07/24 03:30 06:24 WBC 9.8 5.4 Hgb 8.1 L 7.6 L Plt Count 226 201 Assessment and Plan (1) ESRD (end stage renal disease): Status: Acute (2) Anemia: Status: Acute Plan s/p HD yesterday known ESRD on HD at [facility] via AVF 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
--- NOTE | 2024-08-07 10:36 | PM.DS ---
DS: Providers Provider Date of Service: 08/07/24 Date of admission: 08/06/24 16:40 Date of discharge: 08/07/24 Primary care physician: Unknown Physician Consults: 08/06/24 05:33 Consult to Nephrology Routine Consulting Provider: Fransico Green Reason for consultation: needs dialysis, MWF, incomplete dialysis Sunday DS: Diagnosis Discharge Diagnosis (1) Acute hypoxic respiratory failure: Status: Acute (2) Hypertensive urgency: Status: Acute (3) ESRD (end stage renal disease): Status: Acute (4) Obesity (BMI 30.0-34.9): Status: Acute DS: Summary Hospital Course Hospital Course: History of presenting illness: Date of Service: 08/06/24 Attending physician on admission: Mike Mena Chief Complaint: SOB Patient is a 69-year-old male with a past medical history significant for end-stage renal disease on dialysis Sunday, anemia of chronic disease, history diabetes (no medications), HTN, who presented to the ED due to significant shortness of breath and hypoxia last night. The patient reports that he was measuring his O2 use at home in the 1 satting in the 80s. Usually when he is short of breath piece of separate it is helpful however this was not helping at all. He went for dialysis on Sunday but reports that he moved his arm and infiltrated the line in only completed about half a session of dialysis. He was also noted to have significant hypertension with systolic up to 220s. He was put on CPAP and ultimately BiPAP once in the ED with improvement, also given nitro patch and Lasix 80 mg IV. The patient reports that he produces very minimal urine. He denied any lower extremity edema, fever, chills, nausea, vomiting, headache or confusion. He reports he has had a chronic cough for the past few months after having pneumonia and the flu and just saw his digital sales planner this week. Hospital course: 69-year-old male with a past medical history significant for end-stage renal disease on dialysis Sunday, anemia of chronic disease, history diabetes (no medications), HTN, who presented to the ED due to significant shortness of breath and hypoxia last night. He last 1 for dialysis on Sunday and reports that he only had about half a session before his fistula infiltrated. Acute on chronic hypoxic respiratory failure secondary to fluid overload in the setting of end-stage renal disease, chest x-ray showed trace left effusion, with mild interstitial prominence patient treated in the emergency room with BiPAP and IV Lasix, and subsequently underwent hemodialysis, currently patient oxygenation is stable, he is asymptomatic, he is recommended to continue hemodialysis as previously planned Sunday and to have close outpatient follow-up public relations coordinator Dr. Green, patient is on home O2 as needed, initially required 2 L of oxygen, finger oximetry improved currently on room air with stable oxygenation. Hypertensive urgency with history of orthostatic hypotension, SBP about 220 on arrival treated with nitro paste and Lasix, BP improved patient is on multiple as needed blood pressure medications due to orthostatic hypotension with supine hypertension he is recommended to take hydralazine for systolic blood pressure greater than 220, nifedipine for systolic BP greater than 180, patient follows instructions to get up slowly from sitting position to avoid precipitated drop in BP he has been followed closely by his primary care physician. Anemia of chronic disease stable H&H Time Attestation Discharge Coordination Time (in mins): 40 Quality: Safe Use of Opioids Does Pt have an Active Cancer Diagnosis on the Problem List?: No Quality: Stroke Does the patient have a stroke diagnosis?: No Physical Exam Vital Signs: Vital Signs: Last Vital Signs Temp 98.5 F 08/07/24 08:00 Pulse 93 08/07/24 08:00 Resp 18 08/07/24 08:00 BP 151/81 H 08/07/24 09:47 Pulse Ox 97 08/07/24 08:00 O2 Del Method Nasal Cannula 08/07/24 08:00 O2 Flow Rate 1 08/07/24 08:00 BMI result Body Mass Index 33.5 Const: Other: General awake alert,in no acute distress. Neck supple no JVD. CVS regular rate rhythm, Respiratory lungs clear to auscultation, no respiratory distress Gastrointestinal abdomen soft, non tender, bowel sounds audible. Extremities no edema Neuro non focal Psych normal insight Skin no rash DS: Data Data Completed and Pending Completed studies during hospitalization [Text1]: Procedures Excision of Left Kidney, Percutaneous Approach, Diagnostic (05/30/20) Labs on day of discharge: Laboratory Results - last 24 hr 08/06/24 08/07/24 12:39 06:24 WBC 5.4 RBC 2.51 L Hgb 7.6 L Hct 23.6 L MCV 94.0 MCH 30.3 MCHC 32.2 RDW 17.6 H Plt Count 201 MPV 9.7 Absolute Nucleated RBC 0.000 Nucleated RBC % (auto) 0.0 Sodium 141 Potassium 4.0 Chloride 102 Carbon Dioxide 31 H Anion Gap 12 BUN 28 H Creatinine 4.83 H* Estim Creat Clear Calc 18.1 Estimated GFR 12 POC Glucose 90 Random Glucose 100 Calcium 9.4 Magnesium 1.9 Discharge Plan Discharge Anticipated Discharge Date/Time: 08/07/24 10:18 Patient Disposition: Home, Self-Care Discharge Diagnosis: Acute hypoxic respiratory failure Fluid overload in the setting of end-stage renal disease Hypertensive urgency Orthostatic hypotension Referrals: Physician,Unknown J [Primary Care Provider] - 1 Week Discharge Medications: Continued atorvastatin 80 mg tablet 80 mg PO BEDTIME nifedipine 30 mg tablet extended release 30 mg PO BID PRN (Reason: Hypertension) allopurinol 100 mg tablet 100 mg PO DAILY pantoprazole 20 mg tablet,delayed release (DR/EC) 20 mg PO DAILY gabapentin 300 mg capsule 300 mg PO TID doxazosin 4 mg tablet 4 mg PO DAILY PRN (Reason: Hypertension) clonidine 0.3 mg/24 hr patch weekly 1 patch topical TH Patient Comments: Has on now - 08/06/24 albuterol sulfate 90 mcg/actuation HFA aerosol inhaler 2 puff INHALATION Q4-6H PRN (Reason: Shortness Of Breath Or Wheezing) sodium polystyrene sulfonate Powder 15 g PO DIRECTED Patient Comments: patient takes once daily if potassium <4 Rx Instructions: SUTUTHSA@0900,2100 sevelamer carbonate 800 mg tablet 2,400 - 3,200 mg PO TIDWM hydralazine 25 mg tablet 25 mg PO DAILY PRN (Reason: SBP>190) aspirin 81 mg Tablet,Delayed Release (Dr/Ec) 81 mg PO DAILY Discharge Orders: Discharge Order (Routine); Ordered 08/07/24 Ordered By: Duke Vila Diet: Advance to usual diet Activity on Discharge: As tolerated Stand Alone Forms: Patient Portal Discharge page Print Language: Salvadorean Care Plan Goals: Continue hemodialysis ., Wednesdays and Fridays. Supine hypertension with orthostatic hypotension. Patient follows blood pressure closely and administer medication as recommended by his PCP. Health Concerns: Continue all home medications as before Plan of Treatment: Outpatient follow-up with primary care physician and Nephrology Assessment: As above
[2024-08-07] MEDS: cloNIDine 0.3 MG PATCH.TDWK TRANSDERMA (11:06)
[2024-08-07] MEDS: Sodium Polystyrene Sulfon/Sorb 15 GM/60 ML ORAL.SUSP PO (11:06)
--- NOTE | 2024-08-07 11:07 | MHC.CM.PN ---
IMM 08/07/24 Patient lives alone uses cane independent with ADLs. He is discharged today with resumption of outpt HD. He will arrange transport home.
== END 2024-08-07 12:33 | disposition home or self-care (01) | DRG 682 ==
LOC: HO.ED 08:52 → HO.EDOVER 09:41 → HO.IMC 14:58
PROVIDERS: Admitting Provider Physician Assistant; Emergency Provider Emergency Medicine; PCP Family Medicine; Visit Provider Hospitalist
DX: I12.0 Hypertensive chronic kidney disease with stage 5 chronic kidney disease or end stage renal disease (principal); J96.21 Acute and chronic respiratory failure with hypoxia; N18.6 End stage renal disease; E11.22 Type 2 diabetes mellitus with diabetic chronic kidney disease; I16.0 Hypertensive urgency; E66.9 Obesity, unspecified; Z68.33 Body mass index [BMI] 33.0-33.9, adult; D63.1 Anemia in chronic kidney disease; Z71.3 Dietary counseling and surveillance; Z99.2 Dependence on renal dialysis; Z79.82 Long term (current) use of aspirin; Z79.899 Other long term (current) drug therapy
CPT/HCPCS: 36415; 71045; 80048; 80053; 82803; 82947; 83735; 83880; 84484; 85025; 85027; 90999; 93005; 99285; J1940

== ENCOUNTER → 2024-08-06 03:05 | Outpatient (BNV) | payer MEDICARE, SELFPAY | PROVIDERS: Admitting Provider Physician Assistant; Emergency Provider Emergency Medicine; Visit Provider Internal Medicine Cardiovascular Disease | DX: R00.0 Tachycardia, unspecified (principal); Z95.0 Presence of cardiac pacemaker | CPT/HCPCS: 93010 ==

== ENCOUNTER → 2024-08-06 03:37 | Outpatient (BNV) | payer MEDICARE, SELFPAY | PROVIDERS: Emergency Provider Emergency Medicine; Visit Provider Radiology Vascular & Interventional Radiology | DX: R06.02 Shortness of breath (principal) | CPT/HCPCS: 71045 ==

== ENCOUNTER → 2024-08-06 05:59 | Outpatient (BNV) | payer MEDICARE, SELFPAY | PROVIDERS: Emergency Provider Emergency Medicine; Visit Provider Physician Assistant | DX: J96.01 Acute respiratory failure with hypoxia (principal); I16.0 Hypertensive urgency; N18.6 End stage renal disease; E66.811 Obesity, class 1 | CPT/HCPCS: 99223; 99239 ==